=== PATIENT | male | born 1940 | race Caucasian/White ===

== ENCOUNTER 2017-02-15 10:10 | Observation (INO) | payer MEDICARE ==
[2017-02-15] MEDS ORDERED: Albuterol/Ipratropium NEB.SOL* Albuterol 2.5 MG/Ipratropium 0.5 MG 3 ML INH ONE (12:19)
[2017-02-15] MEDS ORDERED: NS 0.9% 1000 ML* 1,000 ML IV ONE (12:19)
[2017-02-15] MEDS ORDERED: methylPREDNISolone 125 MG* 2 ML VIAL IV ONE (12:19)
--- NOTE | 2017-02-15 13:11 | RAD ---
HISTORY: Shortness of breath COMPARISONS: December 28, 2015 VIEWS: 1: frontal portable view of the chest at 12:45 PM FINDINGS: LINES AND TUBES: None. CARDIOMEDIASTINAL SILHOUETTE: The cardiac silhouette is enlarged. The cardiomediastinal silhouette is otherwise normal for portable technique. PLEURA: There are small bilateral pleural effusions LUNG PARENCHYMA: There is hyperinflation. There is patchy alveolar opacification of the lung bases bilaterally. The left lower lung mass is not well-visualized on the current examination. ABDOMEN: The upper abdomen is clear. There is no subphrenic gas. BONES AND SOFT TISSUES: No bone or soft tissue abnormalities are noted. IMPRESSION: 1. COPD. 2. CARDIOMEGALY. 3. BIBASILAR ATELECTASIS VERSUS CONSOLIDATION. 4. SMALL BILATERAL PLEURAL EFFUSIONS. 5. RECOMMEND FOLLOW-UP UNTIL RESOLUTION TO EXCLUDE UNDERLYING PULMONARY PARENCHYMAL PATHOLOGY.
[2017-02-15 13:12] LABS: Hematocrit 37 % (42-52); Hemoglobin 12.1 g/dl (14.0-18.0); Mean Corpuscular HGB Conc 33 g/dl (31-36); Mean Corpuscular Hemoglobin 29 pg (27-31); Mean Corpuscular Volume 90 fL (80-94); Mean Platelet Volume 8 um3 (7.4-10.4); Red Blood Count 4.12 10^6/ul (4.0-5.4); Red Cell Distribution Width 14 % (10.5-15); White Blood Count 11.5 10^3/ul (3.5-10.8)
[2017-02-15 13:30] LABS: Albumin 3.2 g/dL (3.2-5.2); BUN/Creatinine Ratio 38.9 (8-20); Calcium 8.8 mg/dL (8.6-10.3); EGFR African American 137.2 (>60); EGFR Non-African American 106.7 (>60); Globulin 3.4 g/dL (2-4); Potassium 4.1 mmol/L (3.5-5.0); Total Bilirubin 0.8 mg/dL (0.2-1.0); Total Protein 6.6 g/dL (6.4-8.9); Troponin I 0.01 ng/mL (<0.04)
[2017-02-15] MEDS ORDERED: Albuterol HFA INHALER* 8 gm MDI INH PRN (14:40)
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
[2017-02-15] MEDS ORDERED: Albuterol/Ipratropium NEB.SOL* Albuterol 2.5 MG/Ipratropium 0.5 MG 3 ML INH PRN (15:08)
[2017-02-15] MEDS: Diltiazem TAB* 60 MG PO SCH ×2 (15:49→19:12)
--- NOTE | 2017-02-15 16:50 | HP ---
CC: Dr. Washington * [facility] MEDICINE HISTORY AND PHYSICAL: DATE OF ADMISSION: 02/15/17 PRIMARY CARE PHYSICIAN: Dr. Washington. ATTENDING PHYSICIAN: Dr. Usha Tobin * (dictation provided by Otilia Barillas NP ). CHIEF COMPLAINT: Dyspnea on exertion. HISTORY OF PRESENT ILLNESS: Mr. Pennington is a 76-year-old male with the past medical history of advanced COPD, on 2 L nasal cannula at home, as well as chronic systolic congestive heart failure, severe pulmonary hypertension, history of loculated pleural effusions, depression, as well as AFib, who presents to the hospital today with concern for dyspnea on exertion. The patient and his report that over the past few days he has had trouble catching his breath. They note that he is normally able to walk out to the barn at their home but lately this has been much more difficult for him due to dyspnea. He had an appointment to see Dr. Ramirez in a couple of weeks, but based on his symptoms, the called today with plans to see Dr. Ramirez tomorrow; however, when they reviewed the symptoms that the patient was having, Dr. Ramirez recommended that he come to the emergency room instead for evaluation. The patient denies any fevers. He denies any chills. He reports that he has had no new cough. He has been eating and drinking normally. His bowel movements are regular. He had report of hematuria with UTI, which was treated at Dr. Washington's office in early January, but those symptoms have resolved. He last followed up with Dr. Wyman's office in October of this year for echocardiogram. An echocardiogram at that time showed an improvement of his EF to 50% to 55%, but did show severe pulmonary hypertension and it was suspected at that time that perhaps symptoms that he was having were related that. In the emergency room, Mr. Pennington had a chest x-ray which showed concern for COPD, cardiomegaly, and persistent pleural effusions. It was not clear if there was any real change from that from previous chest xray. The patient was given 1 dose of Solu- Medrol out of concern for possible COPD exacerbation. His heart rate has been quite elevated, running up to 150s with minimal bed mobility. His O2 saturation was greater than 90% on 2 L nasal cannula. PAST MEDICAL HISTORY: 1. Atrial fibrillation, on chronic warfarin therapy. 2. COPD, on 2 L nasal cannula. 3. Hypertension. 4. Hyperlipidemia. 5. History of DVT with IVC placement and removal. 6. History of major crush injury, at which time, he had a tracheostomy and right knee surgery. 7. Chronic nonhealing abdominal wound. 8. Combined systolic and diastolic congestive heart failure, last known EF 50% to 55% with severely dilated left and right atrium and severe pulmonary hypertension. 9. Cardiomyopathy. 10. History of loculated pleural effusion. 11. Depression. MEDICATIONS: 1. Albuterol p.r.n. 2. Symbicort 80/4.5 two puffs inhaled b.i.d. 3. Diltiazem CD 180 mg p.o. daily. 4. Lovastatin 20 mg p.o. at bedtime. 5. Multivitamin mineral 1 tab p.o. daily. 6. Albuterol inhaler 2 puffs inhaled q.4 hours p.r.n. 7. Aspirin 81 mg p.o. daily. 8. Cholecalciferol 1000 units p.o. daily. 9. Metoprolol tartrate 100 mg p.o. b.i.d. 10. Sertraline 100 mg p.o. at bedtime. 11. Spiriva 1 cap inhaled daily. 12. Warfarin 2.5 mg on Sunday and ; 5 mg every other day, Sunday, Sunday, Sunday, Sunday, and Sunday. ALLERGIES: No known drug allergies. FAMILY HISTORY: Noncontributory. SOCIAL HISTORY: No report of alcohol or drug use. The patient is a long-term smoker, but has quit. He has over [id number] history of smoking. REVIEW OF SYSTEMS: A 14-point review of systems was completed with Mr. Pennington and all those not mentioned above were negative. PHYSICAL EXAMINATION GENERAL: Mr. Pennington is sitting in the bed. He is in no acute distress. VITAL SIGNS: Temperature 96.6, heart rate up to 140 when sitting in bed, respiratory rate 19, O2 saturation 93% on 2 L nasal cannula, and blood pressure 111/72. LUNGS: Diminished with poor aeration throughout. There is no accessory muscle use. HEART: S1 and S2 and irregular. No murmur, rub, or gallop. ABDOMEN: Soft and nontender. EXTREMITIES: No cyanosis or edema. NEURO: He is alert, he is oriented x3. He moves all extremities equally. There is no facial asymmetry or focal weakness. Extraocular movements are intact. SKIN: The patient has a chronic nonhealing wound to his abdomen with apparent mesh protruding through with extensive scabbing. No erythema. No current drainage. Family states this is baseline. DIAGNOSTIC STUDIES/LAB DATA: WBC 11.5, hemoglobin 12.1, hematocrit 37, platelet count 271. INR 2.92. Sodium 143, potassium 4.1, chloride 105, serum bicarbonate 35, BUN 28, creatinine 0.72, glucose 105, lactic acid 0.8. BNP 374. Chest x-ray showed COPD, cardiomegaly, bibasilar atelectasis versus consolidations, small bilateral pleural effusions. EKG shows AFib with heart rate 80s. ASSESSMENT AND PLAN: Mr. Pennington is a 76-year-old male with a past medical history of chronic obstructive pulmonary disease, on 2 L nasal cannula, as well as cardiomyopathy with last known ejection fraction of 50% with severe atrial enlargement and severe pulmonary hypertension and atrial fibrillation, who presents today to hospital with concern for dyspnea on exertion. In the emergency room, he has been found to be in rapid atrial fibrillation with a heart rate running up into 140s at rest. Our plans are for observation in the hospital for the followin. Rapid atrial fibrillation: I suspect the patient's dyspnea on exertion is more related to his uncontrolled heart rate than to any clear chronic obstructive pulmonary disease exacerbation. In terms of his chronic obstructive pulmonary disease, the patient is satting well on 2 L nasal cannula while at rest. He has no reported cough. He has no wheezing. At this time, plan to treat the atrial fibrillation for improved rate control in hopes that this will improve his symptoms. Plan to increase his diltiazem, he is currently on 180 mg, planning to give 60 mg q.6 hours and monitor closely. The patient's reports that in the past, it has been very difficult to provide rate control for the patient during previous hospitalizations. The patient started on Coumadin with the therapeutic INR. He will continue on metoprolol with hold parameters. 2. Chronic obstructive pulmonary disease. The patient was given 1 time dose of Solu-Medrol in the emergency room. I do not plan to continue this as I am not convinced that he has chronic obstructive pulmonary disease exacerbation at this point. Plan to switch over to Dulera as his Symbicort is not on formulary. He will have DuoNeb available p.r.n. Continue on his home oxygen. 3. History of hypertension. Continue metoprolol 100 b.i.d. with increased Cardizem. Blood pressure is well controlled at this point. 4. Depression. Continue sertraline. 5. DVT prophylaxis with warfarin. 6. Code status is full code. This was reviewed with the patient and his at the bedside today. 7. Disposition to telemetry floor for observation. TIME SPENT: Approximately 60 minutes was spent in the admission of this patient , more than half time spent with the patient at the bedside reviewing the events leading up to this hospitalization, performing the physical examination, and reviewing my plan of care. OTILIA BARILLAS NP [id number]/CPS #: [id number] MIN
[2017-02-15] MEDS ORDERED: Warfarin TAB(*) 2.5 MG PO SCH (17:00)
[2017-02-15] MEDS: Mometasone/Formoter 100/5 MDI INH SCH (20:23)
[2017-02-15] MEDS ORDERED: Metoprolol Tartrate TAB* 50 mg PO SCH ×2 (21:00)
[2017-02-15] MEDS ORDERED: Sertraline* 100 MG TAB PO SCH (21:00)
[2017-02-15] MEDS: Metoprolol Tartrate TAB* 100 MG TAB PO SCH (21:12)
[2017-02-16] MEDS: Diltiazem TAB* 60 MG PO SCH ×2 (00:18→05:52)
[2017-02-16] MEDS: Mometasone/Formoter 100/5 MDI INH SCH (07:46)
[2017-02-16] MEDS: Metoprolol Tartrate TAB* 100 MG TAB PO SCH (08:04)
[2017-02-16] MEDS ORDERED: Tiotropium CAP.INH* CAP.INH/18 MCG (USE ORDER SET !) INH SCH (09:00)
[2017-02-16] MEDS ORDERED: Cholecalciferol TAB* 1000 UNITS PO SCH (09:00)
[2017-02-16] MEDS ORDERED: Aspirin Low Dose CHEW TAB* 81 MG PO SCH (09:00)
[2017-02-16] MEDS ORDERED: Spiriva Inhaler DEVICE* 1 EACH DEVICE INH ONE (09:00)
[2017-02-16 12:12] VITALS: BP 107/71
[2017-02-16] MEDS ORDERED: Warfarin TAB(*) 5 MG PO SCH (17:00)
--- NOTE | 2017-02-17 08:26 | DS ---
AMENDED REPORT NOW INCLUDES COSIGNER DESIGNATION - ESIGNED BEFORE ADJUSTMENT DISCHARGE SUMMARY: DATE OF ADMISSION: 02/15/17 DATE OF DISCHARGE: 02/16/17 PRIMARY CARE PHYSICIAN: Dr. Joseph Washington. MY ATTENDING WHILE IN THE HOSPITAL: Dr. Eulogio Hughes * (DICTATED BY KRISTIN FERNANDEZ) PRINCIPAL DISCHARGE DIAGNOSIS: Atrial fibrillation with rapid ventricular rate. SECONDARY DIAGNOSES: 1. Chronic obstructive pulmonary disease. 2. Systolic and diastolic heart failure. 3. Hyperlipidemia. 4. Deep venous thrombosis with IVC filter placement and removal. 5. Major crush injury. DISCHARGE MEDICATIONS: 1. Aspirin 81 mg p.o. daily. 2. Albuterol 2 puffs q.4h. as needed. 3. Metoprolol tartrate 100 mg p.o. b.i.d. 4. Multivitamin. 5. Tiotropium 1 capsule inhalation daily. 6. Albuterol 1.25 mg inhalation q.4h. as needed. 7. Symbicort 84.5 two puffs inhalation b.i.d. 8. Vitamin D 1000 units p.o. daily. 9. Lovastatin 20 mg p.o. at bedtime. 10. Diltiazem 240 mg p.o. daily. 11. Zoloft 100 mg p.o. at bedtime. 12. Warfarin 5 mg p.o. Sunday, Sunday, Sunday, Sunday, and Sunday.; Warfarin 2.5 mg on Sunday and . STUDIES DONE WHILE IN THE HOSPITAL: Chest x-ray read as COPD, cardiomegaly, bibasilar atelectasis versus consolidations, small bilateral pleural effusions. Recommend followup until resolution to confirm underlying pulmonary parenchymal pathology, which was consistent with previous studies. EKG shows early repolarization in V3. No other ST segment changes. Normal axis. Irregularly irregular rhythm. No other abnormalities. HOSPITAL COURSE: This is a brief summary of the patient's hospital course. For more details, please see the history and physical by Otilia Barillas from . In brief, Mr. Pennington is a 76-year-old male with past medical history of COPD, chronic systolic and diastolic heart failure, hypertension, depression, AFib, who presents for an increase in dyspnea on exertion over the past few days with a decrease in exercise tolerance with no other symptoms of CHF. The patient was found to be very tachycardic in the emergency department and with his heart rate going up to 150s with minimal in bed mobility. This was believed to be the cause of his symptoms and he was admitted for rate control. The patient was started on Cardizem 60 mg q.4h. and was continued on his metoprolol 100 mg b.i.d. The patient improved dramatically overnight, being able to walk around in the unit with no symptoms. The patient's heart rate stayed down consistently in the 70s to 90s range without any symptoms of lightheadedness or fatigue. The patient did not have any other complaints overnight. The patient was amenable being sent home with an increase in his Cardizem dose to the dose he used in the hospital without any other treatment for COPD exacerbation or CHF exacerbation as these were not believed to be the underlying cause of his symptoms. PHYSICAL EXAMINATION ON DISCHARGE: General: The patient is a 76-year-old male , who appears stated age, sitting comfortably in bed, in no acute distress. Vital Signs: At discharge, temperature 98.2, pulse rate 74, respiratory rate 18 , oxygen saturation 98% on 2 L, which is his home dose, blood pressure 107/71. HEENT: Head: Normocephalic, atraumatic. Eyes: Sclerae are anicteric. No conjunctival injection. Pharynx: Nonerythematous. Mucous membranes moist. Neck: No lymphadenopathy. Supple, nontender. No carotid bruits auscultated. Heart: Regular rate and rhythm. No clicks, murmurs, gallops or rubs. Pulses 2 + in the bilateral radial, dorsalis pedis, and posterior tibialis areas. Respiratory: Clear to auscultation bilaterally. No wheezes, rales, rhonchi. Abdomen: Bowel sounds present in all 4 quadrants. Normoactive, nontender, nondistended. No abdominal bruits auscultated. Skin: Clean, dry, and intact. Anton Ruiz. Neuro: Cranial nerves II through XII grossly intact. Alert and oriented x3. Normal gait. DISCHARGE PLAN: The patient will be discharged to home where he lives with his on the increased Cardizem dose as this appears to have fully abated his symptoms. The patient will continue his home medication for COPD as well as his home oxygen. The patient will resume activity as tolerated with a heart- healthy diet. No caffeine. The patient should follow up with his primary care doctor within a week. The patient should return to the hospital for any increase in his symptoms. This is a summary of the hospital course, for more detail see the complete medical record. TIME SPENT: Approximately 60 minutes was spent on this discharge, 30 minutes of which was spent [id number] with the patient obtaining history and physical and discussing the discharge plan. KRISTIN FERNANDEZ [id number]/CPS #: [id number] MIN
== END 2017-02-16 12:07 | disposition home or self-care (01) ==
LOC: ED 10:10 → MEDTELE 14:41
PROVIDERS: ADMIT Internal Medicine; ATTEND Hospitalist
DX: I48.91 Unspecified atrial fibrillation (principal); Z79.01 Long term (current) use of anticoagulants; I11.0 Hypertensive heart disease with heart failure; I50.40 Unspecified combined systolic (congestive) and diastolic (congestive) heart failure; J44.9 Chronic obstructive pulmonary disease, unspecified; E78.5 Hyperlipidemia, unspecified; F32.9 Major depressive disorder, single episode, unspecified; Z86.718 Personal history of other venous thrombosis and embolism; Z79.899 Other long term (current) drug therapy; Z87.891 Personal history of nicotine dependence
CPT/HCPCS: 36415; 71010; 80053; 83605; 83880; 84484; 85025; 85610; 87040; 93005; 94640; 94760; 96361; 96374; 99284; A9270-GY; G0378; J2930

== ENCOUNTER → 2017-04-10 11:09 | Emergency (ER) | payer MEDICARE ==
[~2017-04-10 11:09] MED LIST: Iohexol 300* (CONTRAST) 10 ML SDV IV ONE; Lidocaine 2% PF * 5 ML VIAL ONE; Morphine INJ* 2 MG/ML 1 ML CARPUJECT IV ONE; Morphine INJ* 2 MG/ML 1 ML SYRINGE (TWO MG - NEW SYRINGE VERSION) ONE; Morphine INJ* 4 MG/ML 1 ML CARPUJECT IV ONE; NS 0.9% 1000 ML* 1,000 ML IV ONE; Ondansetron INJ* 2 MG/ML VIAL IV ONE; Tetan/Diph/Pertus SYR(Tdap)* 0.5 ML SYR(BOOSTRIX) use SYR IM ONE; ceFAZolin 1 GM VIAL(*) ONE; ceFAZolin 1 GM in Dextrose (*) 1 GM/50 ML BAG IVPB ONE
[2017-04-10 12:21] LABS: Hematocrit 38 % (42-52); Hemoglobin 12.3 g/dl (14.0-18.0); Mean Corpuscular HGB Conc 32 g/dl (31-36); Mean Corpuscular Hemoglobin 28 pg (27-31); Mean Corpuscular Volume 88 fL (80-94); Mean Platelet Volume 8 um3 (7.4-10.4); Red Blood Count 4.35 10^6/ul (4.0-5.4); Red Cell Distribution Width 15 % (10.5-15); White Blood Count 13.7 10^3/ul (3.5-10.8)
[2017-04-10 12:33] LABS: Albumin 3.4 g/dL (3.2-5.2); BUN/Creatinine Ratio 30.5 (8-20); EGFR African American 88.8 (>60); Globulin 2.6 g/dL (2-4); Potassium 4.6 mmol/L (3.5-5.0); Total Bilirubin 0.6 mg/dL (0.2-1.0)
--- NOTE | 2017-04-10 12:41 | RAD ---
Indication: Fall, right hand pain. 4 views of the right hand are reviewed. Degenerative changes at the scaphotrapezium joint is noted. Additionally there are degenerative changes at the third metacarpal phalangeal joint. Degenerative changes of the proximal and distal interphalangeal joints are noted to the second through fifth digit. No definite fracture is identified however. IMPRESSION: Degenerative changes of the third metacarpal phalangeal joint as well as in the wrist joint. No definite fracture is noted.
--- NOTE | 2017-04-10 12:42 | RAD ---
Indication: Right wrist injury 3 views of the wrist demonstrates no fracture. Degenerative changes between the trapezium and the scaphoid is noted. Cyst formation is noted in the scaphoid as well as in the lunate and triquetrum. No definite fracture is identified. IMPRESSION: NO FRACTURE OF THE WRIST IS NOTED. Degenerative changes of the wrist are noted.
--- NOTE | 2017-04-10 14:09 | RAD ---
Indication: Fall, head injury. CT of the brain was performed without IV contrast. Ventricular structures are midline. No midline shift is noted. There is central and cortical atrophy noted. Periventricular lucency consistent with chronic ischemic White matter change is noted. There is evidence of encephalomalacia in the left posterior temporal lobe. IMPRESSION: Chronic ischemic change. 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
--- NOTE | 2017-04-10 14:26 | RAD ---
INDICATION: Kicked by a horse. Possible facial injury. Patient's chief complaint-hand and chest pain COMPARISON: None TECHNIQUE: Axial source images were acquired from the vertex of the mandible through the orbits. Coronal and sagittal reconstructed images were acquired. FINDINGS: Bones: There is no acute facial bone fracture. Orbits: The globes and intraconal structures appear intact. The optic nerves are symmetric. Extraocular muscles appear normal. There is no intraconal inflammatory change or retrobulbar mass.. Paranasal sinuses: The paranasal sinuses are clear. Brain: There are no acute abnormalities of the visualized brain parenchyma. Soft tissues: Normal Other: None The visualized soft tissue elements about the neck appear normal. IMPRESSION: NO ACUTE FACIAL BONE FRACTURE.
--- NOTE | 2017-04-10 14:32 | RAD ---
INDICATION: Kicked by horse. Fall. Anticoagulated. COMPARISON: January 02, 2016 CT TECHNIQUE: Multidetector CT images foramen magnum to lung apices without contrast. Multiplanar reformation. REPORT: Emphysematous change at the visualized lung apices. Bilateral apical pleural-parenchymal scarring. No pneumothorax evident within the [id number]. Negative for paravertebral hematoma. Negative for facet subluxation at any level. Ankylosis at the C3-C4 disc space and facet joints. Negative for vertebral body or posterior element fracture. Diffuse degenerative spondylosis and facet joint osteoarthritis. Congenitally generous pedicles mitigate against acquired central canal stenosis. At C4-C5 uncinate process spurring and facet joint osteoarthritis results in slight LEFT osseous foraminal stenosis. IMPRESSION: 1. No CT evidence for traumatic cervical spine injury. 2. No significant change in multilevel degenerative spondylosis and facet joint osteoarthritis compared with the 2016 exam.
--- NOTE | 2017-04-10 15:37 | RAD ---
INDICATION: Kicked by a horse. Chest and hand pain. Possible abdominal or pelvic injury. COMPARISON: CTA chest January 02, 2016; CT abdomen pelvis May 20, 2015 TECHNIQUE: Axial source images were obtained from the thoracic inlet to the symphysis pubis following administration of oral and intravenous contrast. 81 mL Omnipaque 300 was utilized. Coronal and sagittal reconstructed images were acquired. CHEST FINDINGS: Neck/thyroid: The visualized neck to include the thyroid appear normal. Chest wall: There are no acute abnormalities of the bony thorax or chest wall. There is posttraumatic deformity of the anterior right first rib and the right clavicle consistent with the history of prior injury. There are rib deformities consistent with prior traumatic injury to the left second through seventh ribs. There is spondylitic change of the thoracic spine with kyphoscoliosis There is no supraclavicular, infraclavicular, or axillary lymphadenopathy. Lungs : There are no pulmonary parenchymal masses or acute infiltrates. There are emphysematous changes with a severe scarring and/or atelectasis. There are no endobronchial lesions. Cardiomediastinal structures: The heart is normal in size. There is no pericardial effusion. There is no evidence of aortic aneurysm or dissection. The pulmonary vessels appear normal. There is no current mediastinal or hilar adenopathy. The esophagus appears normal. Pleura : Loculated pleural fluid collections have essentially resolved. ABDOMINAL/PELVIC FINDINGS: Liver: The liver is normal in size. There are no new masses. There is a 1.2 cm cyst or hemangioma in the left hepatic lobe There is no ductal dilatation. Gallbladder: There are no calcified gallstones. There is no evidence of wall thickening or pericholecystic fluid. Spleen: The spleen is normal in size. There are no masses. Pancreas: There is no evidence of pancreatic mass or ductal dilatation. Adrenal glands: There is no evidence of adrenal mass. Kidneys: The kidneys are normal in size and position. There are prompt nephrograms and there is prompt excretion bilaterally. There are are multiple small renal cortical cysts. Several cysts are too small to fully characterize there is no evidence of nephrolithiasis. Adenopathy: There is no evidence of adenopathy by size criteria. Fluid collections: There are no free or localized fluid collections. Vessels:There are atherosclerotic changes of the aorta. There is mild fusiform ectasia of the infrarenal abdominal aorta extending down to the bifurcation. The infrarenal abdominal aorta measures 2.8 x 2.7 cm in transverse dimensions. GI tract: GI tract is limited as no oral contrast was given. There are no specific acute CT abnormalities. There are scattered diverticula of the sigmoid colon. Pelvic organs: The prostate is mildly enlarged. There are prostatic calcifications Bladder: There is a 1.5 cm bladder calculus. Abdominal and pelvic soft tissues: There is a right inguinal hernia containing bowel. The hernia contains the appendix. There are no findings of strangulation. Small fat-containing left inguinal hernia. Osseous structures: There are no acute osseous abnormalities of the lumbar spine or bony pelvis there is a scoliotic deformity. There is degenerative disc disease most severe at T12-L1 and L5-S1. IMPRESSION: 1. Evidence of prior posttraumatic injury to the bony thorax. No acute findings. 2. Emphysematous change with mild basilar scarring. Loculated pleural fluid collections have resolved. 3. Atherosclerotic change of the abdominal aorta with mild fusiform dilatation of the infrarenal abdominal aorta, unchanged. 4. Scattered diverticula of the sigmoid colon. 5. Mild prostate enlargement. 6. Bladder calculus 7. Bilateral inguinal hernias. The right inguinal hernia contains bowel.
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
[2017-04-10 22:30] VITALS: BP 115/59
== END | disposition home or self-care (01) ==
LOC: ED 11:09
DX: S61.411A Laceration without foreign body of right hand, initial encounter (principal); R07.9 Chest pain, unspecified; W55.12XA Struck by horse, initial encounter; Y93.9 Activity, unspecified; Y92.9 Unspecified place or not applicable; Z87.891 Personal history of nicotine dependence
CPT/HCPCS: 12002; 36415; 70450; 70486; 71260; 72125; 74177; 80053; 83605; 85025; 85610; 85730; 90715; 96374; 96375; 99285; J0690; J2270; J2405; Q9967

== ENCOUNTER 2017-06-21 12:44 | Inpatient (IN) | payer MEDICARE ==
[2017-06-21] MEDS ORDERED: Lactated Ringers 1000 ml Bag*IV.FLUID IV ONE (13:14)
[2017-06-21] MEDS ORDERED: Piperacillin/Tazobac ADVAN(*) 3.375 GM in NS 0.9% 100 ML* 100 ML IVPB ONE (13:27)
[2017-06-21] MEDS ORDERED: NS 0.9% 1000 ML*IV.FLUID IV ONE (13:31)
[2017-06-21 13:59] LABS: ABS Basophils 0.2 10^3/ul (0-0.2); ABS Eosinophils 0 10^3/ul (0-0.6); ABS Lymphocytes 0.3 10^3/ul (1.0-4.8); ABS Monocytes 0.8 10^3/ul (0-0.8); ABS Neutrophils 14.5 10^3/ul (1.5-7.7); ABS Nucleated RBC 0 10^3/ul; Eosinophil % 0.1 % (0-6); Hematocrit 39 % (42-52); Hemoglobin 12.8 g/dl (14.0-18.0); Mean Corpuscular HGB Conc 33 g/dl (31-36); Mean Corpuscular Hemoglobin 29 pg (27-31); Mean Corpuscular Volume 88 fL (80-94); Mean Platelet Volume 9 um3 (7.4-10.4); Nucleated Red Blood Cells % 0.1; Platelet Count 252 10^3/ul (150-450); Red Blood Count 4.43 10^6/ul (4.0-5.4); Red Cell Distribution Width 15 % (10.5-15); White Blood Count 15.8 10^3/ul (3.5-10.8)
[2017-06-21 14:13] LABS: EGFR Non-African American 60.3 (>60)
[2017-06-21] MEDS ORDERED: Iohexol 300* (CONTRAST) 10 ML SDV IV ONE (14:36)
--- NOTE | 2017-06-21 14:38 | RAD ---
HISTORY: Abdominal infection, wound infection COMPARISONS: February 15, 2017, CT dated April 10, 2017 VIEWS: 1: frontal portable view of the chest at 2:20 PM FINDINGS: LINES AND TUBES: None. CARDIOMEDIASTINAL SILHOUETTE: The cardiomediastinal silhouette is normal for portable technique. PLEURA: There is blunting of the right costophrenic angle. LUNG PARENCHYMA: There is hyperinflation. There is confluent alveolar opacification of the right lower lung field that has developed compared to the previous CT dated April 10, 2017. ABDOMEN: The upper abdomen is clear. There is no subphrenic gas. BONES AND SOFT TISSUES: No bone or soft tissue abnormalities are noted. IMPRESSION: 1. COPD. 2. SMALL RIGHT PLEURAL EFFUSION. 3. THERE IS RIGHT LOWER LUNG CONSOLIDATION. RECOMMEND FOLLOW-UP UNTIL RESOLUTION TO EXCLUDE UNDERLYING PULMONARY PARENCHYMAL PATHOLOGY..
[2017-06-21 14:47] LABS: INR 3.19 (0.77-1.02)
--- NOTE | 2017-06-21 15:16 | RAD ---
INDICATION: Abdominal pain COMPARISON: CT chest/abdomen/pelvis April 02, 2017 TECHNIQUE: Axial source images were obtained from the hemidiaphragms to the symphysis pubis following administration of oral and intravenous contrast. 87 mL Omnipaque 300 was utilized. Coronal and sagittal reconstructed images were acquired. Lung bases: There is bibasilar scarring with emphysematous changes and loculated pleural fluid in the right lung base. Suggest follow-up chest radiographs. The heart is enlarged. Liver: The liver is normal in size. There are no new masses. There is a small left hepatic lobe cyst, unchanged There is no ductal dilatation. Gallbladder: There are no calcified gallstones. There is no evidence of wall thickening or pericholecystic fluid. Spleen: The spleen is normal in size. There are no masses. Pancreas: There is no focal pancreatic mass or ductal dilatation. Adrenal glands: There is no evidence of adrenal mass. Kidneys: The kidneys are normal in size and position. There are prompt nephrograms and there is prompt excretion bilaterally. There are multiple small cysts in each kidney, unchanged. There is no evidence of nephrolithiasis. Adenopathy: There is no evidence of adenopathy by size criteria. Fluid collections: There are no free or localized fluid collections. Vessels:There are mild atherosclerotic changes involving the aorta. There is fusiform aneurysmal dilatation of the infrarenal abdominal aorta measuring 2.8 x 2.5 cm. The iliac vessels demonstrate extensive intimal calcifications. The IVC appears normal. GI tract: There are no acute CT bowel findings. There is no obstruction. The stomach and small bowel appear normal. The lower GI tract is remarkable for scattered diverticula of the sigmoid and descending colon. There are no CT findings of acute diverticulitis. There is a small right apical hernia which contains the appendix, unchanged. Pelvic organs: The prostate is mildly enlarged. Bladder: There is a bladder calculus. Abdominal and pelvic soft tissues: Small bilateral inguinal hernias right greater than left. Osseous structures: There are no acute osseous findings. Other: None IMPRESSION: 1. There is now loculated pleural fluid in the right lung base. Suggest a follow-up chest x-ray. 2. Mild fusiform dilatation of the infrarenal abdominal aorta, unchanged. 3. Scattered diverticula of the sigmoid and descending colon. No CT evidence of acute diverticulitis. 4. Prostatic enlargement. 5. Bladder calculus. 6. Small bilateral inguinal hernias right greater than left, unchanged
[2017-06-21] MEDS ORDERED: Vancomycin(*) 1,000 MG in NS 0.9% 250 ML* 250 ML IVPB ONE (16:41)
[2017-06-21] MEDS ORDERED: Al Hydrox/Mg Hydrox/Simet LIQ* 30 ML UDC PO PRN (19:08)
[2017-06-21] MEDS ORDERED: Albuterol 2.5 MG/3 ML NEB.SOL* (0.083%) INH PRN (19:08)
[2017-06-21] MEDS ORDERED: Albuterol/Ipratropium NEB.SOL* Albuterol 2.5 MG/Ipratropium 0.5 MG 3 ML INH PRN (19:08)
[2017-06-21] MEDS ORDERED: Acetaminophen TAB* 325 MG PO PRN (19:08)
[2017-06-21] MEDS ORDERED: Ondansetron INJ* 2 MG/ML VIAL IV PRN (19:08)
[2017-06-21] MEDS ORDERED: Ipratropium 0.5MG/2.5ML NEB* 0.5 MG/2.5 ML NEB.SOLN INH PRN (19:15)
[2017-06-21] MEDS ORDERED: Vancomycin(*) 0 MG in NS 0.9% 250 ML* 250 ML IVPB SCH (20:00)
[2017-06-21] MEDS ORDERED: Warfarin TAB(*) 2.5 MG PO ONE (20:00)
[2017-06-21] MEDS ORDERED: Vancomycin per Pharmacy* NOTE FOLLOW UP PRN (20:46)
[2017-06-21] MEDS ORDERED: Piperacillin/Tazobac ADVAN(*) 3.375 GM in NS 0.9% 100 ML* 100 ML IVPB SCH (21:00)
[2017-06-21] MEDS ORDERED: Piperacillin/Tazobactam 13.5 GM IV 24 hour continuous infusion IVPB SCH ×2 (21:00)
[2017-06-21] MEDS: Mometasone/Formoter 200/5 MDI INH SCH ×2 (21:25→23:33)
[2017-06-21] MEDS: Atorvastatin* 10 MG TAB PO SCH (22:57)
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
[2017-06-21] MEDS: methylPREDNISolone SOD 40 MG* 1 ML VIAL IV SCH (23:55)
[2017-06-22] MEDS: Vancomycin(*) 1,000 MG in NS 0.9% 250 ML* 250 ML IVPB SCH ×3 (02:00→18:01)
[2017-06-22 04:25] LABS: Urine Appearance Clear; Urine Blood 2+ (Negative); Urine Color Yellow; Urine Ketones Negative (Negative); Urine Protein 1+(30 mg/dL) (Negative); Urine Urobilinogen Negative (Negative)
[2017-06-22 05:12] LABS: ABS Basophils 0 10^3/ul (0-0.2); ABS Eosinophils 0 10^3/ul (0-0.6); ABS Lymphocytes 0.4 10^3/ul (1.0-4.8); ABS Monocytes 0.4 10^3/ul (0-0.8); ABS Neutrophils 8.9 10^3/ul (1.5-7.7); ABS Nucleated RBC 0 10^3/ul; Eosinophil % 0.4 % (0-6); Hematocrit 35 % (42-52); Hemoglobin 11.6 g/dl (14.0-18.0); Lymphocyte % 4.6 % (25-47); Mean Corpuscular HGB Conc 33 g/dl (31-36); Mean Corpuscular Hemoglobin 29 pg (27-31); Mean Corpuscular Volume 88 fL (80-94); Mean Platelet Volume 8 um3 (7.4-10.4); Nucleated Red Blood Cells % 0; Platelet Count 208 10^3/ul (150-450); Red Blood Count 4.03 10^6/ul (4.0-5.4); Red Cell Distribution Width 15 % (10.5-15); White Blood Count 9.8 10^3/ul (3.5-10.8)
[2017-06-22 05:18] LABS: INR 3.73 (0.77-1.02)
[2017-06-22 05:29] LABS: EGFR Non-African American 80.4 (>60)
--- NOTE | 2017-06-22 08:26 | CONS ---
CC: Dr. Ennis; Dr. Joseph Washington CONSULTATION REPORT: DATE OF CONSULT: 06/21/17 HISTORY OF PRESENT ILLNESS: Patient is a 76-year-old male I was asked to evaluate by Dr. Dukes for a n abdominal wound. He presented to the emergency room with abdominal pain and signs of early sepsis. He has a history of some kind of abdominal surgery done a few years ago elsewhere. He does not glenroy lly remember too many details of what they did with the surgery. He has had some mesh that has been extruding gradually over quite a length of time. He was seen back at the [facility] a while back a nd they told him with a big surgery he might need a colostomy bag. He refused, and never had any [place] to repair it. He generally eats okay. He does not have anything that sounds like bilious drain age or feculent drainage. He does have some foul smelling drainage in the area. PHYSICAL EXAM: On examination, he appears slender, maybe a little frail, but he is alert and animate d. Skin color is good. He does not appear really acutely ill. He is afebrile. Vital signs are note d. On examination of the abdomen, there is a large area of what appears like it was an open abdomina l wound that healed by secondary intention. It is approximately 15 cm in each dimension with very th in scar, very little abdominal wall is intact in this location. There is old mesh and suture materia l extruding along the lower edge and the upper edge of this wound. There is raw excoriated skin under the edge of the mesh, and some purulent drainage dripping out from underneath the edge of the mesh, so the mesh was thus debrided off back to where it extrudes from the skin. There is no evidence of a ny necrotic or gangrenous skin. There is no evidence of undrained collection, although there is some purulent seepage from some of the open areas. The wound was then dressed with sterile gauze. DIAGNOSTIC STUDIES/LAB DATA: Laboratory studies are noted. IMPRESSION: A 76-year-old male with what appears to be a failed abdominal wall mesh repair, now with what appears to be scarring right over the bowel with areas of extruding mesh and purulent drainage which is MRSA positive. I have debrided off the bulk of the excess mesh, although, of course, there is going to be some residual infection underneath. There is no evidence of abscess collection on the CT scan. Surgical intervention for a definitive debridement and closure would be a massive operation with like ly multiple enterotomies and a high risk of failure. He would probably be best served at a tertiary center for this type of surgery. He may need antibiotics to treat his early sepsis, and I will defer to the hospitalist service in savita t regard. I did not think he needs any kind of emergent surgery or debridement right now, and I think he could be managed with the wound clinic in the interim; and, as noted, may benefit from referral to a [facility] center for definitive surgical intervention. [id number]/[facility] #: [id number]
[2017-06-22] MEDS ORDERED: Diltiazem CD CAP* 120 MG PO SCH (09:00)
[2017-06-22] MEDS: Mometasone/Formoter 200/5 MDI INH SCH ×2 (09:01→20:39)
[2017-06-22] MEDS: Albuterol HFA INHALER* 8 gm MDI INH PRN ×3 (09:08→18:09)
[2017-06-22] MEDS: Cholecalciferol TAB* 1000 UNITS PO SCH (09:20)
[2017-06-22] MEDS: Aspirin EC Low Dose* 81 MG TAB.EC PO SCH (09:21)
[2017-06-22] MEDS: Metoprolol Tartrate TAB* 50 mg PO SCH ×2 (09:21→19:47)
[2017-06-22] MEDS: Diltiazem CD CAP* 120 MG PO SCH (09:21)
[2017-06-22] MEDS ORDERED: Metoprolol Tartrate IV* 1 MG/ML 5 ML VIAL IV PRN (10:33)
[2017-06-22] MEDS: methylPREDNISolone SOD 40 MG* 1 ML VIAL IV SCH (12:32)
--- NOTE | 2017-06-22 12:46 | PN ---
Progress Note - Progress Note Date of Service: 06/22/17 SOAP: Subjective: Patient seen and examined at bedside. Has no complaints, would like to go home. Denies abdominal pain, eating lunch. Objective: Awake and alert, in NAD Vitals reviewed, Tmax 99.1 Abdomen soft, NT, ND. Dressing removed revealing areas of macerated skin and dry old scabs. No bleeding or discharge. Dry dressing applied. Labs noted Assessment: s/p bedside debridement of infected abdominal mesh secondary to apparent failed VIH repair Plan: Continue Abx Conservative measures for now, patient is a poor surgical candidate Spoke with his over phone, she is aware of plans, heard similar answers at [place] in the past F/U with wound clinic
[2017-06-22] MEDS ORDERED: Vancomycin Trough Check NOTE FOLLOW UP ONE (16:30)
--- NOTE | 2017-06-22 17:52 | PN ---
Subjective Date of Service: 06/22/17 Interval History: feels okay, still short of breath at rest but says not far from his baseline. no abdominal pain Objective Active Medications: Acetaminophen (Tylenol Tab*) 650 mg PO Q4H PRN PRN Reason: FEVER/PAIN Al Hydrox/Mg Hydrox/Simethicone (Maalox Plus*) 30 ml PO Q6H PRN PRN Reason: INDIGESTION Albuterol (Ventolin 2.5 Mg/3 Ml Neb.Vicenta*) 2.5 mg INH [id number] AWAKE PRN PRN Reason: sob/wheezing Albuterol (Ventolin Hfa Inhaler*) 2 puff INH Q4H PRN PRN Reason: DYSPNEA Last Admin: 06/22/17 13:04 Dose: 2 puff Albuterol/Ipratropium (Duoneb (Albuterol 2.5 Mg/Ipratropium 0.5 Mg)) 1 neb INH [id number] AWAKE PRN PRN Reason: sob/wheexing Aspirin (Aspirin Ec Low Dose*) 81 mg PO DAILY [facility] Last Admin: 06/22/17 09:21 Dose: 81 mg Atorvastatin Calcium (Lipitor*) 5 mg PO BEDTIME [facility] Last Admin: 06/21/17 22:57 Dose: 5 mg Cholecalciferol (Vitamin D Tab*) 1,000 units PO DAILY [facility] Last Admin: 06/22/17 09:20 Dose: 1,000 units Diltiazem HCl (Cardizem Cd Cap*) 120 mg PO DAILY [facility] Last Admin: 06/22/17 09:21 Dose: 120 mg Piperacillin Sod/Tazobactam (Sod 13.5 gm/ Sodium Chloride) 500 mls @ 20.833 mls /hr IVPB Q24H [facility] Stop: 06/22/17 20:59 Last Admin: 06/21/17 22:57 Dose: 20.833 mls/hr Vancomycin HCl 1,000 mg/ (Sodium Chloride) 250 mls @ 166.667 mls/hr IVPB Q8H [facility] Last Admin: 06/22/17 09:21 Dose: 166.667 mls/hr Sodium Chloride (Ns 0.9% 1000 Ml*) 1,000 mls @ 100 mls/hr IV PER RATE [facility] Piperacillin Sod/Tazobactam (Sod 3.375 gm/ Sodium Chloride) 100 mls @ 25 mls/ hr IVPB Q8H [facility] Ipratropium [place] (Atrovent 0.5 Mg Neb.Vicenta*) 0.5 mg INH Q4H PRN PRN Reason: SOB/WHEEZING Methylprednisolone Sodium Succinate (Solu-Medrol 40 Mg) 40 mg IV Q12H [facility] Last Admin: 06/22/17 12:32 Dose: 40 mg Metoprolol Tartrate (Lopressor Tab*) 100 mg PO BID [facility] Last Admin: 06/22/17 09:21 Dose: 100 mg Metoprolol Tartrate (Lopressor Iv*) 5 mg IV Q6H PRN PRN Reason: HEART RATE/PULSE GREATER THAN: Mometasone Furoate/Formoterol Fumar (Dulera 200/5 Mdi*) 2 puff INH BID [facility] PRN Reason: Protocol Last Admin: 06/22/17 09:01 Dose: 2 puff Ondansetron HCl (Zofran Inj*) 4 mg IV Q4H PRN PRN Reason: NAUSEA/VOMITING Pharmacy Consult (Vancomycin Per Pharmacy*) 1 note FOLLOW UP . PRN PRN Reason: PER PROTOCOL Vital Signs - 8 hr 06/22/17 06/22/17 06/22/17 12:27 14:09 16:03 Temperature 98.8 F 97.9 F Pulse Rate 128 104 Respiratory 20 24 Rate Blood Pressure 121/75 135/77 (mmHg) O2 Sat by Pulse 89 94 90 Oximetry Oxygen Devices in Use Now: Nasal Cannula Appearance: dyspneic when talking Eyes: No Scleral Icterus Ears/Nose/Mouth/Throat: NL Teeth, Lips, Gums Neck: - - right clavicular deformity Respiratory: Symmetrical Chest Expansion and Respiratory Effort, - - poor air movement Cardiovascular: NL Sounds; No Murmurs; No JVD, RRR Abdominal: - - large patch of superficial wound without drainage, some erythema Lymphatic: No Cervical Adenopathy Extremities: No Edema Skin: No Rash or Ulcers Neurological: Alert and Oriented x 3 Result Diagrams: 06/22/17 05:05 06/22/17 05:05 Assess/Plan/Problems-Billing Assessment: - Patient Problems (1) CAP (community acquired pneumonia) Current Visit: Yes Status: Acute Code(s): J18.9 - PNEUMONIA, UNSPECIFIED ORGANISM SNOMED Code(s): 749563544 Comment: was started on broad spectrum abx for concern for abdominal wound; can de-escalate to include cap coverage with MRSA coverage (2) Chronic abdominal wound infection Current Visit: Yes Status: Acute Code(s): S31.109A - UNSP OPN WND ABD WALL, UNSP Q W/O PENET PERIT CAV, INIT; L08.9 - LOCAL INFECTION OF THE SKIN AND SUBCUTANEOUS TISSUE, UNSP SNOMED Code(s): 51058600 Comment: colonized with MRSA, doubt active infection or abscess (3) Atrial fibrillation Current Visit: No Status: Acute Priority: Medium Code(s): I48.91 - UNSPECIFIED ATRIAL FIBRILLATION SNOMED Code(s): 33215863 Comment: poorly controlled on home metoprolol likely due to copd exacerbation , albuterol continue metoprolol 100mg bid AC with warfarin, but on hold now due to supratherapeutic inr (4) COPD (chronic obstructive pulmonary disease) Current Visit: No Status: Acute Priority: Medium Code(s): J44.9 - CHRONIC OBSTRUCTIVE PULMONARY DISEASE, UNSPECIFIED SNOMED Code(s): 76736723 Comment: nebs and steroids for acute exacerbation
[2017-06-22] MEDS: Atorvastatin* 10 MG TAB PO SCH (19:48)
[2017-06-22] MEDS: NS 0.9% 1000 ML* 1,000 ML IV SCH (19:49)
[2017-06-23] MEDS: ZOSYN 3.375 GM Q8H per EXTENDED INFUSION IVPB SCH ×6 (00:29→16:54)
[2017-06-23] MEDS: Vancomycin(*) 1,000 MG in NS 0.9% 250 ML* 250 ML IVPB SCH ×3 (00:35→16:54)
[2017-06-23] MEDS: methylPREDNISolone SOD 40 MG* 1 ML VIAL IV SCH ×3 (01:59→23:44)
[2017-06-23] MEDS: Mometasone/Formoter 200/5 MDI INH SCH ×2 (07:02→20:54)
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
[2017-06-23] MEDS: Metoprolol Tartrate TAB* 50 mg PO SCH ×2 (09:13→20:27)
[2017-06-23] MEDS: Cholecalciferol TAB* 1000 UNITS PO SCH (09:13)
[2017-06-23] MEDS: Diltiazem CD CAP* 120 MG PO SCH (09:13)
[2017-06-23] MEDS: Aspirin EC Low Dose* 81 MG TAB.EC PO SCH (09:13)
[2017-06-23] MEDS: NS 0.9% 1000 ML* 1,000 ML IV SCH (11:59)
[2017-06-23] MEDS: Albuterol HFA INHALER* 8 gm MDI INH PRN (12:21)
--- NOTE | 2017-06-23 16:09 | PN ---
Subjective Date of Service: 06/23/17 Interval History: feels good, no complaints this morning. no pain in the abdomen. Went for a walk this morning with his nurse and felt short of breath when he returned. Family History: Unchanged from Admission Social History: Unchanged from Admission Past Medical History: Unchanged from Admission Objective Active Medications: Acetaminophen (Tylenol Tab*) 650 mg PO Q4H PRN PRN Reason: FEVER/PAIN Al Hydrox/Mg Hydrox/Simethicone (Maalox Plus*) 30 ml PO Q6H PRN PRN Reason: INDIGESTION Albuterol (Ventolin 2.5 Mg/3 Ml Neb.Vicenta*) 2.5 mg INH [id number] AWAKE PRN PRN Reason: sob/wheezing Albuterol (Ventolin Hfa Inhaler*) 2 puff INH Q4H PRN PRN Reason: DYSPNEA Last Admin: 06/23/17 12:21 Dose: 2 puff Albuterol/Ipratropium (Duoneb (Albuterol 2.5 Mg/Ipratropium 0.5 Mg)) 1 neb INH [id number] AWAKE PRN PRN Reason: sob/wheexing Aspirin (Aspirin Ec Low Dose*) 81 mg PO DAILY [facility] Last Admin: 06/23/17 09:13 Dose: 81 mg Atorvastatin Calcium (Lipitor*) 5 mg PO BEDTIME [facility] Last Admin: 06/22/17 19:48 Dose: 5 mg Cholecalciferol (Vitamin D Tab*) 1,000 units PO DAILY [facility] Last Admin: 06/23/17 09:13 Dose: 1,000 units Diltiazem HCl (Cardizem Cd Cap*) 120 mg PO DAILY [facility] Last Admin: 06/23/17 09:13 Dose: 120 mg Vancomycin HCl 1,000 mg/ (Sodium Chloride) 250 mls @ 166.667 mls/hr IVPB Q8H [facility] Last Admin: 06/23/17 09:13 Dose: 166.667 mls/hr Sodium Chloride (Ns 0.9% 1000 Ml*) 1,000 mls @ 100 mls/hr IV PER RATE [facility] Last Admin: 06/23/17 11:59 Dose: 100 mls/hr Piperacillin Sod/Tazobactam (Sod 3.375 gm/ Sodium Chloride) 100 mls @ 25 mls/ hr IVPB Q8H [facility] Last Admin: 06/23/17 09:13 Dose: 25 mls/hr Ipratropium [place] (Atrovent 0.5 Mg Neb.Vicenta*) 0.5 mg INH Q4H PRN PRN Reason: SOB/WHEEZING Methylprednisolone Sodium Succinate (Solu-Medrol 40 Mg) 40 mg IV Q12H [facility] Last Admin: 06/23/17 11:59 Dose: 40 mg Metoprolol Tartrate (Lopressor Tab*) 100 mg PO BID [facility] Last Admin: 06/23/17 09:13 Dose: 100 mg Metoprolol Tartrate (Lopressor Iv*) 5 mg IV Q6H PRN PRN Reason: HEART RATE/PULSE GREATER THAN: Mometasone Furoate/Formoterol Fumar (Dulera 200/5 Mdi*) 2 puff INH BID [facility] PRN Reason: Protocol Last Admin: 06/23/17 07:02 Dose: 2 puff Ondansetron HCl (Zofran Inj*) 4 mg IV Q4H PRN PRN Reason: NAUSEA/VOMITING Pharmacy Consult (Vancomycin Per Pharmacy*) 1 note FOLLOW UP . PRN PRN Reason: PER PROTOCOL Sertraline HCl (Zoloft*) 25 mg PO DAILY [facility] Vital Signs - 8 hr 06/23/17 06/23/17 06/23/17 08:20 08:24 11:32 Temperature 98.1 F 98.2 F Pulse Rate 103 70 Respiratory 18 18 24 Rate Blood Pressure 133/69 119/77 (mmHg) O2 Sat by Pulse 94 97 Oximetry Oxygen Devices in Use Now: Nasal Cannula Appearance: sitting up in chair, no distress, dyspneic when he talks Eyes: No Scleral Icterus Ears/Nose/Mouth/Throat: NL Teeth, Lips, Gums Neck: - - clavicular deformity Respiratory: - - scattered wheezes, few rhonchi Cardiovascular: NL Sounds; No Murmurs; No JVD, No Edema Abdominal: - - large superficial wound covers most of his abdomen with some foul smelling purulence Extremities: No Edema Skin: No Rash or Ulcers Neurological: Alert and Oriented x 3 Result Diagrams: 06/22/17 05:05 06/22/17 05:05 Additional Lab and Data: Lab Results 06/21/17 06/21/17 06/21/17 Range/Units 13:41 13:41 13:41 WBC (3.5-10.8) 10^3/ul RBC (4.0-5.4) 10^6/ul Hgb (14.0-18.0) g/dl Hct (42-52) % MCV (80-94) fL MCH (27-31) pg MCHC (31-36) g/dl RDW (10.5-15) % Plt Count (150-450) 10^3/ul MPV (7.4-10.4) um3 Neut % (Auto) (38-83) % Lymph % (Auto) (25-47) % [place] % (Auto) (1-9) % Eos % (Auto) (0-6) % Baso % (Auto) (0-2) % Absolute Neuts (auto) (1.5-7.7) 10^3/ul Absolute Lymphs (auto) (1.0-4.8) 10^3/ul Absolute Monos (auto) (0-0.8) 10^3/ul Absolute Eos (auto) (0-0.6) 10^3/ul Absolute Basos (auto) (0-0.2) 10^3/ul Absolute Nucleated RBC 10^3/ul Nucleated RBC % ESR (0-40) mm/Hr INR (Anticoag Therapy) 3.19 H (0.77-1.02) APTT 37.5 H (26.0-36.3) seconds Fibrinogen 369 (110.8-404.3) mg/dL Patient Temperature ABG pH (7.35-7.45) ABG pH (Temp Correct) ABG pCO2 (35-45) mmHg ABG pCO2 (Temp Corrct ABG pO2 (80-100) mmHg ABG pO2 (Temp Correct ABG HCO3 (19-31) mmol/L ABG O2 Saturation (95-98) % ABG Base Excess (-2.0-2.0) Respiration Rate O2 Delivery Device Ventilator Type Vent Mode FiO2 Inspiratory Time PEEP Pressure Support Pressure Control EPAP IPAP BiPAP Sodium (133-145) mmol/L Potassium (3.5-5.0) mmol/L Chloride (101-111) mmol/L Carbon Dioxide (22-32) mmol/L Anion Gap (2-11) mmol/L BUN (6-24) mg/dL Creatinine (0.67-1.17) mg/dL Est GFR ( Amer) (>60) Est GFR (Non-Af Amer) (>60) BUN/Creatinine Ratio (8-20) Glucose (70-100) mg/dL Lactic Acid (0.5-2.0) mmol/L Calcium (8.6-10.3) mg/dL Total Bilirubin (0.2-1.0) mg/dL AST (13-39) U/L ALT (7-52) U/L Alkaline Phosphatase (34-104) U/L Total Creatine Kinase (10-223) U/L Troponin I (<0.04) ng/mL C-Reactive Protein (< 5.00) mg/L B-Natriuretic Peptide 393 H ( - 100) pg/mL Total Protein (6.4-8.9) g/dL Albumin (3.2-5.2) g/dL Globulin (2-4) g/dL Albumin/Globulin Ratio (1-3) Procalcitonin 0.1 (<0.6) ng/mL 06/21/17 06/21/17 06/21/17 Range/Units 13:41 13:41 13:41 WBC 15.8 H (3.5-10.8) 10^3/ul RBC 4.43 (4.0-5.4) 10^6/ul Hgb 12.8 L (14.0-18.0) g/dl Hct 39 L (42-52) % MCV 88 (80-94) fL MCH 29 (27-31) pg MCHC 33 (31-36) g/dl RDW 15 (10.5-15) % Plt Count 252 (150-450) 10^3/ul MPV 9 (7.4-10.4) um3 Neut % (Auto) 91.3 H (38-83) % Lymph % (Auto) 2.0 L (25-47) % [place] % (Auto) 5.2 (1-9) % Eos % (Auto) 0.1 (0-6) % Baso % (Auto) 1.4 (0-2) % Absolute Neuts (auto) 14.5 H (1.5-7.7) 10^3/ul Absolute Lymphs (auto) 0.3 L (1.0-4.8) 10^3/ul Absolute Monos (auto) 0.8 (0-0.8) 10^3/ul Absolute Eos (auto) 0 (0-0.6) 10^3/ul Absolute Basos (auto) 0.2 (0-0.2) 10^3/ul Absolute Nucleated RBC 0 10^3/ul Nucleated RBC % 0.1 ESR 14 (0-40) mm/Hr INR (Anticoag Therapy) (0.77-1.02) APTT (26.0-36.3) seconds Fibrinogen (110.8-404.3) mg/dL Patient Temperature ABG pH (7.35-7.45) ABG pH (Temp Correct) ABG pCO2 (35-45) mmHg ABG pCO2 (Temp Corrct ABG pO2 (80-100) mmHg ABG pO2 (Temp Correct ABG HCO3 (19-31) mmol/L ABG O2 Saturation (95-98) % ABG Base Excess (-2.0-2.0) Respiration Rate O2 Delivery Device Ventilator Type Vent Mode FiO2 Inspiratory Time PEEP Pressure Support Pressure Control EPAP IPAP BiPAP Sodium 140 (133-145) mmol/L Potassium 4.7 (3.5-5.0) mmol/L Chloride 104 (101-111) mmol/L Carbon Dioxide 31 (22-32) mmol/L Anion Gap 5 (2-11) mmol/L BUN 44 H (6-24) mg/dL Creatinine 1.18 H (0.67-1.17) mg/dL Est GFR ( Amer) 77.6 (>60) Est GFR (Non-Af Amer) 60.3 (>60) BUN/Creatinine Ratio 37.3 H (8-20) Glucose 108 H (70-100) mg/dL Lactic Acid 1.2 (0.5-2.0) mmol/L Calcium 9.3 (8.6-10.3) mg/dL Total Bilirubin 1.20 H (0.2-1.0) mg/dL AST 38 (13-39) U/L ALT 49 (7-52) U/L Alkaline Phosphatase 78 (34-104) U/L Total Creatine Kinase 70 (10-223) U/L Troponin I 0.01 (<0.04) ng/mL C-Reactive Protein 17.12 H (< 5.00) mg/L B-Natriuretic Peptide ( - 100) pg/mL Total Protein 6.7 (6.4-8.9) g/dL Albumin 3.7 (3.2-5.2) g/dL Globulin 3.0 (2-4) g/dL Albumin/Globulin Ratio 1.2 (1-3) Procalcitonin (<0.6) ng/mL 06/21/17 06/21/17 Range/Units 14:04 17:08 WBC (3.5-10.8) 10^3/ul RBC (4.0-5.4) 10^6/ul Hgb (14.0-18.0) g/dl Hct (42-52) % MCV (80-94) fL MCH (27-31) pg MCHC (31-36) g/dl RDW (10.5-15) % Plt Count (150-450) 10^3/ul MPV (7.4-10.4) um3 Neut % (Auto) (38-83) % Lymph % (Auto) (25-47) % [place] % (Auto) (1-9) % Eos % (Auto) (0-6) % Baso % (Auto) (0-2) % Absolute Neuts (auto) (1.5-7.7) 10^3/ul Absolute Lymphs (auto) (1.0-4.8) 10^3/ul Absolute Monos (auto) (0-0.8) 10^3/ul Absolute Eos (auto) (0-0.6) 10^3/ul Absolute Basos (auto) (0-0.2) 10^3/ul Absolute Nucleated RBC 10^3/ul Nucleated RBC % ESR (0-40) mm/Hr INR (Anticoag Therapy) (0.77-1.02) APTT (26.0-36.3) seconds Fibrinogen (110.8-404.3) mg/dL Patient Temperature Not Reportable ABG pH 7.29 L (7.35-7.45) ABG pH (Temp Correct) Not Reportable ABG pCO2 56 H (35-45) mmHg ABG pCO2 (Temp Corrct Not Reportable ABG pO2 75 L (80-100) mmHg ABG pO2 (Temp Correct Not Reportable ABG HCO3 24.5 (19-31) mmol/L ABG O2 Saturation 96.9 (95-98) % ABG Base Excess -0.5 (-2.0-2.0) Respiration Rate Not Reportable O2 Delivery Device n/c Ventilator Type Not Reportable Vent Mode Not Reportable FiO2 2 Inspiratory Time Not Reportable PEEP Not Reportable Pressure Support Not Reportable Pressure Control Not Reportable EPAP Not Reportable IPAP Not Reportable BiPAP Not Reportable Sodium (133-145) mmol/L Potassium (3.5-5.0) mmol/L Chloride (101-111) mmol/L Carbon Dioxide (22-32) mmol/L Anion Gap (2-11) mmol/L BUN (6-24) mg/dL Creatinine (0.67-1.17) mg/dL Est GFR ( Amer) (>60) Est GFR (Non-Af Amer) (>60) BUN/Creatinine Ratio (8-20) Glucose (70-100) mg/dL Lactic Acid 0.8 (0.5-2.0) mmol/L Calcium (8.6-10.3) mg/dL Total Bilirubin (0.2-1.0) mg/dL AST (13-39) U/L ALT (7-52) U/L Alkaline Phosphatase (34-104) U/L Total Creatine Kinase (10-223) U/L Troponin I (<0.04) ng/mL C-Reactive Protein (< 5.00) mg/L B-Natriuretic Peptide ( - 100) pg/mL Total Protein (6.4-8.9) g/dL Albumin (3.2-5.2) g/dL Globulin (2-4) g/dL Albumin/Globulin Ratio (1-3) Procalcitonin (<0.6) ng/mL Microbiology and Other Data: Microbiology 06/22/17 03:42 Urine Culture - Preliminary Urine Enterococcus Faecalis Assess/Plan/Problems-Billing Assessment: - Patient Problems (1) CAP (community acquired pneumonia) Current Visit: Yes Status: Acute Code(s): J18.9 - PNEUMONIA, UNSPECIFIED ORGANISM SNOMED Code(s): 951114806 Comment: was started on broad spectrum abx for concern for abdominal wound; planned to de-escalate today but abdominal wound is growing multiple organisms, which is expected in a chronic wound, but will keep broad spectrum for abdomen, which will also cover cap (2) Chronic abdominal wound infection Current Visit: Yes Status: Acute Code(s): S31.109A - UNSP OPN WND ABD WALL, UNSP Q W/O PENET PERIT CAV, INIT; L08.9 - LOCAL INFECTION OF THE SKIN AND SUBCUTANEOUS TISSUE, UNSP SNOMED Code(s): 20448644 Comment: treating as active infection since he was septic at admission. sepsis has resolved on broad spectrum antibiotics, awaiting sensitivities of organisms besides mrsa. will try to choose po abx tomorrow. (3) Atrial fibrillation Current Visit: No Status: Acute Priority: Medium Code(s): I48.91 - UNSPECIFIED ATRIAL FIBRILLATION SNOMED Code(s): 08405613 Comment: poorly controlled on home metoprolol likely due to copd exacerbation , albuterol continue metoprolol 100mg bid AC with warfarin, but on hold now due to supratherapeutic inr. recheck inr tomorrow. (4) COPD (chronic obstructive pulmonary disease) Current Visit: No Status: Acute Priority: Medium Code(s): J44.9 - CHRONIC OBSTRUCTIVE PULMONARY DISEASE, UNSPECIFIED SNOMED Code(s): 64052645 Comment: nebs and steroids for acute exacerbation
[2017-06-23] MEDS: Atorvastatin* 10 MG TAB PO SCH (20:28)
[2017-06-23] MEDS: Sertraline* 25 MG TAB PO SCH (20:28)
[2017-06-24] MEDS: ZOSYN 3.375 GM Q8H per EXTENDED INFUSION IVPB SCH ×6 (01:01→18:24)
[2017-06-24] MEDS: Vancomycin(*) 1,000 MG in NS 0.9% 250 ML* 250 ML IVPB SCH ×3 (01:05→17:34)
[2017-06-24] MEDS: NS 0.9% 1000 ML* 1,000 ML IV SCH (05:26)
[2017-06-24 06:07] LABS: ABS Basophils 0 10^3/ul (0-0.2); ABS Eosinophils 0 10^3/ul (0-0.6); ABS Lymphocytes 0.3 10^3/ul (1.0-4.8); ABS Monocytes 0.9 10^3/ul (0-0.8); ABS Neutrophils 14.6 10^3/ul (1.5-7.7); ABS Nucleated RBC 0 10^3/ul; Eosinophil % 0 % (0-6); Hematocrit 37 % (42-52); Hemoglobin 12.1 g/dl (14.0-18.0); Lymphocyte % 2.1 % (25-47); Mean Corpuscular HGB Conc 33 g/dl (31-36); Mean Corpuscular Hemoglobin 29 pg (27-31); Mean Corpuscular Volume 88 fL (80-94); Mean Platelet Volume 9 um3 (7.4-10.4); Nucleated Red Blood Cells % 0; Platelet Count 234 10^3/ul (150-450); Red Blood Count 4.25 10^6/ul (4.0-5.4); Red Cell Distribution Width 15 % (10.5-15); White Blood Count 15.8 10^3/ul (3.5-10.8)
[2017-06-24 06:12] LABS: INR 2.58 (0.77-1.02)
[2017-06-24 06:26] LABS: EGFR Non-African American 93.2 (>60)
[2017-06-24] MEDS ORDERED: NS 0.9% 250 ML* 250 ML ONE ×2 (09:03→17:33)
[2017-06-24] MEDS ORDERED: NS 0.9% 100 ML* 100 ML ONE ×2 (09:03→17:33)
[2017-06-24] MEDS: Mometasone/Formoter 200/5 MDI INH SCH ×2 (09:04→21:00)
[2017-06-24] MEDS: Aspirin EC Low Dose* 81 MG TAB.EC PO SCH (09:06)
[2017-06-24] MEDS: Cholecalciferol TAB* 1000 UNITS PO SCH (09:06)
[2017-06-24] MEDS: Metoprolol Tartrate TAB* 50 mg PO SCH ×2 (09:06→20:01)
[2017-06-24] MEDS: Sertraline* 25 MG TAB PO SCH (09:06)
[2017-06-24] MEDS: Diltiazem CD CAP* 120 MG PO SCH (09:07)
[2017-06-24] MEDS: methylPREDNISolone SOD 40 MG* 1 ML VIAL IV SCH (12:39)
--- NOTE | 2017-06-24 15:09 | PN ---
Subjective Date of Service: 06/24/17 Interval History: feels good today and wants to go home. No pain. Denies shortness of breath or cough. No fevers. Family History: Unchanged from Admission Social History: Unchanged from Admission Past Medical History: Unchanged from Admission Objective Active Medications: Acetaminophen (Tylenol Tab*) 650 mg PO Q4H PRN PRN Reason: FEVER/PAIN Al Hydrox/Mg Hydrox/Simethicone (Maalox Plus*) 30 ml PO Q6H PRN PRN Reason: INDIGESTION Albuterol (Ventolin 2.5 Mg/3 Ml Neb.Vicenta*) 2.5 mg INH [id number] AWAKE PRN PRN Reason: sob/wheezing Albuterol (Ventolin Hfa Inhaler*) 2 puff INH Q4H PRN PRN Reason: DYSPNEA Last Admin: 06/23/17 12:21 Dose: 2 puff Albuterol/Ipratropium (Duoneb (Albuterol 2.5 Mg/Ipratropium 0.5 Mg)) 1 neb INH [id number] AWAKE PRN PRN Reason: sob/wheexing Aspirin (Aspirin Ec Low Dose*) 81 mg PO DAILY [facility] Last Admin: 06/24/17 09:06 Dose: 81 mg Atorvastatin Calcium (Lipitor*) 5 mg PO BEDTIME [facility] Last Admin: 06/23/17 20:28 Dose: 5 mg Cholecalciferol (Vitamin D Tab*) 1,000 units PO DAILY [facility] Last Admin: 06/24/17 09:06 Dose: 1,000 units Diltiazem HCl (Cardizem Cd Cap*) 120 mg PO DAILY [facility] Last Admin: 06/24/17 09:07 Dose: 120 mg Vancomycin HCl 1,000 mg/ (Sodium Chloride) 250 mls @ 166.667 mls/hr IVPB Q8H [facility] Last Admin: 06/24/17 07:57 Dose: 166.667 mls/hr Sodium Chloride (Ns 0.9% 1000 Ml*) 1,000 mls @ 100 mls/hr IV PER RATE [facility] Last Admin: 06/24/17 05:26 Dose: 100 mls/hr Piperacillin Sod/Tazobactam (Sod 3.375 gm/ Sodium Chloride) 100 mls @ 25 mls/ hr IVPB Q8H [facility] Last Admin: 06/24/17 09:54 Dose: 25 mls/hr Ipratropium [place] (Atrovent 0.5 Mg Neb.Vicenta*) 0.5 mg INH Q4H PRN PRN Reason: SOB/WHEEZING Methylprednisolone Sodium Succinate (Solu-Medrol 40 Mg) 40 mg IV Q12H [facility] Last Admin: 06/24/17 12:39 Dose: 40 mg Metoprolol Tartrate (Lopressor Tab*) 100 mg PO BID [facility] Last Admin: 06/24/17 09:06 Dose: 100 mg Metoprolol Tartrate (Lopressor Iv*) 5 mg IV Q6H PRN PRN Reason: HEART RATE/PULSE GREATER THAN: Mometasone Furoate/Formoterol Fumar (Dulera 200/5 Mdi*) 2 puff INH BID [facility] PRN Reason: Protocol Last Admin: 06/24/17 09:04 Dose: 2 puff Ondansetron HCl (Zofran Inj*) 4 mg IV Q4H PRN PRN Reason: NAUSEA/VOMITING Pharmacy Consult (Vancomycin Per Pharmacy*) 1 note FOLLOW UP . PRN PRN Reason: PER PROTOCOL Sertraline HCl (Zoloft*) 25 mg PO DAILY [facility] Last Admin: 06/24/17 09:06 Dose: 25 mg Vital Signs - 8 hr 06/24/17 06/24/17 06/24/17 07:50 08:00 09:07 Temperature 98.3 F Pulse Rate 102 103 Respiratory 18 18 18 Rate Blood Pressure 142/74 (mmHg) O2 Sat by Pulse 98 94 Oximetry 06/24/17 11:42 Temperature 99.4 F Pulse Rate 104 Respiratory 18 Rate Blood Pressure 123/72 (mmHg) O2 Sat by Pulse 97 Oximetry Oxygen Devices in Use Now: Nasal Cannula Appearance: alert, well appearing sitting up in the chair, nontoxic Eyes: No Scleral Icterus Ears/Nose/Mouth/Throat: NL Teeth, Lips, Gums Neck: NL Appearance and Movements; NL JVP Respiratory: Symmetrical Chest Expansion and Respiratory Effort, - - few scattered wheezes, good air movement Cardiovascular: NL Sounds; No Murmurs; No JVD, - - irregular rhythm Abdominal: - - large wound over abdomen, shallow with some clear yellowish drainage Lymphatic: No Cervical Adenopathy Extremities: No Edema Neurological: Alert and Oriented x 3 Result Diagrams: 06/24/17 05:24 06/24/17 05:24 Additional Lab and Data: Lab Results 06/21/17 06/21/17 06/21/17 Range/Units 13:41 13:41 13:41 WBC (3.5-10.8) 10^3/ul RBC (4.0-5.4) 10^6/ul Hgb (14.0-18.0) g/dl Hct (42-52) % MCV (80-94) fL MCH (27-31) pg MCHC (31-36) g/dl RDW (10.5-15) % Plt Count (150-450) 10^3/ul MPV (7.4-10.4) um3 Neut % (Auto) (38-83) % Lymph % (Auto) (25-47) % [place] % (Auto) (1-9) % Eos % (Auto) (0-6) % Baso % (Auto) (0-2) % Absolute Neuts (auto) (1.5-7.7) 10^3/ul Absolute Lymphs (auto) (1.0-4.8) 10^3/ul Absolute Monos (auto) (0-0.8) 10^3/ul Absolute Eos (auto) (0-0.6) 10^3/ul Absolute Basos (auto) (0-0.2) 10^3/ul Absolute Nucleated RBC 10^3/ul Nucleated RBC % ESR (0-40) mm/Hr INR (Anticoag Therapy) 3.19 H (0.77-1.02) APTT 37.5 H (26.0-36.3) seconds Fibrinogen 369 (110.8-404.3) mg/dL Patient Temperature ABG pH (7.35-7.45) ABG pH (Temp Correct) ABG pCO2 (35-45) mmHg ABG pCO2 (Temp Corrct ABG pO2 (80-100) mmHg ABG pO2 (Temp Correct ABG HCO3 (19-31) mmol/L ABG O2 Saturation (95-98) % ABG Base Excess (-2.0-2.0) Respiration Rate O2 Delivery Device Ventilator Type Vent Mode FiO2 Inspiratory Time PEEP Pressure Support Pressure Control EPAP IPAP BiPAP Sodium (133-145) mmol/L Potassium (3.5-5.0) mmol/L Chloride (101-111) mmol/L Carbon Dioxide (22-32) mmol/L Anion Gap (2-11) mmol/L BUN (6-24) mg/dL Creatinine (0.67-1.17) mg/dL Est GFR ( Amer) (>60) Est GFR (Non-Af Amer) (>60) BUN/Creatinine Ratio (8-20) Glucose (70-100) mg/dL Lactic Acid (0.5-2.0) mmol/L Calcium (8.6-10.3) mg/dL Total Bilirubin (0.2-1.0) mg/dL AST (13-39) U/L ALT (7-52) U/L Alkaline Phosphatase (34-104) U/L Total Creatine Kinase (10-223) U/L Troponin I (<0.04) ng/mL C-Reactive Protein (< 5.00) mg/L B-Natriuretic Peptide 393 H ( - 100) pg/mL Total Protein (6.4-8.9) g/dL Albumin (3.2-5.2) g/dL Globulin (2-4) g/dL Albumin/Globulin Ratio (1-3) Procalcitonin 0.1 (<0.6) ng/mL 06/21/17 06/21/17 06/21/17 Range/Units 13:41 13:41 13:41 WBC 15.8 H (3.5-10.8) 10^3/ul RBC 4.43 (4.0-5.4) 10^6/ul Hgb 12.8 L (14.0-18.0) g/dl Hct 39 L (42-52) % MCV 88 (80-94) fL MCH 29 (27-31) pg MCHC 33 (31-36) g/dl RDW 15 (10.5-15) % Plt Count 252 (150-450) 10^3/ul MPV 9 (7.4-10.4) um3 Neut % (Auto) 91.3 H (38-83) % Lymph % (Auto) 2.0 L (25-47) % [place] % (Auto) 5.2 (1-9) % Eos % (Auto) 0.1 (0-6) % Baso % (Auto) 1.4 (0-2) % Absolute Neuts (auto) 14.5 H (1.5-7.7) 10^3/ul Absolute Lymphs (auto) 0.3 L (1.0-4.8) 10^3/ul Absolute Monos (auto) 0.8 (0-0.8) 10^3/ul Absolute Eos (auto) 0 (0-0.6) 10^3/ul Absolute Basos (auto) 0.2 (0-0.2) 10^3/ul Absolute Nucleated RBC 0 10^3/ul Nucleated RBC % 0.1 ESR 14 (0-40) mm/Hr INR (Anticoag Therapy) (0.77-1.02) APTT (26.0-36.3) seconds Fibrinogen (110.8-404.3) mg/dL Patient Temperature ABG pH (7.35-7.45) ABG pH (Temp Correct) ABG pCO2 (35-45) mmHg ABG pCO2 (Temp Corrct ABG pO2 (80-100) mmHg ABG pO2 (Temp Correct ABG HCO3 (19-31) mmol/L ABG O2 Saturation (95-98) % ABG Base Excess (-2.0-2.0) Respiration Rate O2 Delivery Device Ventilator Type Vent Mode FiO2 Inspiratory Time PEEP Pressure Support Pressure Control EPAP IPAP BiPAP Sodium 140 (133-145) mmol/L Potassium 4.7 (3.5-5.0) mmol/L Chloride 104 (101-111) mmol/L Carbon Dioxide 31 (22-32) mmol/L Anion Gap 5 (2-11) mmol/L BUN 44 H (6-24) mg/dL Creatinine 1.18 H (0.67-1.17) mg/dL Est GFR ( Amer) 77.6 (>60) Est GFR (Non-Af Amer) 60.3 (>60) BUN/Creatinine Ratio 37.3 H (8-20) Glucose 108 H (70-100) mg/dL Lactic Acid 1.2 (0.5-2.0) mmol/L Calcium 9.3 (8.6-10.3) mg/dL Total Bilirubin 1.20 H (0.2-1.0) mg/dL AST 38 (13-39) U/L ALT 49 (7-52) U/L Alkaline Phosphatase 78 (34-104) U/L Total Creatine Kinase 70 (10-223) U/L Troponin I 0.01 (<0.04) ng/mL C-Reactive Protein 17.12 H (< 5.00) mg/L B-Natriuretic Peptide ( - 100) pg/mL Total Protein 6.7 (6.4-8.9) g/dL Albumin 3.7 (3.2-5.2) g/dL Globulin 3.0 (2-4) g/dL Albumin/Globulin Ratio 1.2 (1-3) Procalcitonin (<0.6) ng/mL 06/21/17 06/21/17 Range/Units 14:04 17:08 WBC (3.5-10.8) 10^3/ul RBC (4.0-5.4) 10^6/ul Hgb (14.0-18.0) g/dl Hct (42-52) % MCV (80-94) fL MCH (27-31) pg MCHC (31-36) g/dl RDW (10.5-15) % Plt Count (150-450) 10^3/ul MPV (7.4-10.4) um3 Neut % (Auto) (38-83) % Lymph % (Auto) (25-47) % [place] % (Auto) (1-9) % Eos % (Auto) (0-6) % Baso % (Auto) (0-2) % Absolute Neuts (auto) (1.5-7.7) 10^3/ul Absolute Lymphs (auto) (1.0-4.8) 10^3/ul Absolute Monos (auto) (0-0.8) 10^3/ul Absolute Eos (auto) (0-0.6) 10^3/ul Absolute Basos (auto) (0-0.2) 10^3/ul Absolute Nucleated RBC 10^3/ul Nucleated RBC % ESR (0-40) mm/Hr INR (Anticoag Therapy) (0.77-1.02) APTT (26.0-36.3) seconds Fibrinogen (110.8-404.3) mg/dL Patient Temperature Not Reportable ABG pH 7.29 L (7.35-7.45) ABG pH (Temp Correct) Not Reportable ABG pCO2 56 H (35-45) mmHg ABG pCO2 (Temp Corrct Not Reportable ABG pO2 75 L (80-100) mmHg ABG pO2 (Temp Correct Not Reportable ABG HCO3 24.5 (19-31) mmol/L ABG O2 Saturation 96.9 (95-98) % ABG Base Excess -0.5 (-2.0-2.0) Respiration Rate Not Reportable O2 Delivery Device n/c Ventilator Type Not Reportable Vent Mode Not Reportable FiO2 2 Inspiratory Time Not Reportable PEEP Not Reportable Pressure Support Not Reportable Pressure Control Not Reportable EPAP Not Reportable IPAP Not Reportable BiPAP Not Reportable Sodium (133-145) mmol/L Potassium (3.5-5.0) mmol/L Chloride (101-111) mmol/L Carbon Dioxide (22-32) mmol/L Anion Gap (2-11) mmol/L BUN (6-24) mg/dL Creatinine (0.67-1.17) mg/dL Est GFR ( Amer) (>60) Est GFR (Non-Af Amer) (>60) BUN/Creatinine Ratio (8-20) Glucose (70-100) mg/dL Lactic Acid 0.8 (0.5-2.0) mmol/L Calcium (8.6-10.3) mg/dL Total Bilirubin (0.2-1.0) mg/dL AST (13-39) U/L ALT (7-52) U/L Alkaline Phosphatase (34-104) U/L Total Creatine Kinase (10-223) U/L Troponin I (<0.04) ng/mL C-Reactive Protein (< 5.00) mg/L B-Natriuretic Peptide ( - 100) pg/mL Total Protein (6.4-8.9) g/dL Albumin (3.2-5.2) g/dL Globulin (2-4) g/dL Albumin/Globulin Ratio (1-3) Procalcitonin (<0.6) ng/mL Microbiology and Other Data: Microbiology 06/22/17 03:42 Urine Culture - Preliminary Urine Enterococcus Faecalis Assess/Plan/Problems-Billing Assessment: - Patient Problems (1) Chronic abdominal wound infection Current Visit: Yes Status: Acute Code(s): S31.109A - UNSP OPN WND ABD WALL, UNSP Q W/O PENET PERIT CAV, INIT; L08.9 - LOCAL INFECTION OF THE SKIN AND SUBCUTANEOUS TISSUE, UNSP SNOMED Code(s): 42171549 Comment: with superimposed infection s/p debridement at admission. sepsis has resolved on broad spectrum antibiotics, but 5 different organisms are growing; certainly the wound is colonized, so it is hard to know what is pathogenic. I think he warrants another day of IV antibiotics and ID consultation tomorrow. Dr. Ennis recommended referral to a tertiary center for definitive surgery (2) CAP (community acquired pneumonia) Current Visit: Yes Status: Acute Code(s): J18.9 - PNEUMONIA, UNSPECIFIED ORGANISM SNOMED Code(s): 325008402 Comment: broad spectrum abx from wound will also cover cap (3) Atrial fibrillation Current Visit: No Status: Acute Priority: Medium Code(s): I48.91 - UNSPECIFIED ATRIAL FIBRILLATION SNOMED Code(s): 58141243 Comment: poorly controlled on home metoprolol likely due to copd exacerbation , albuterol continue metoprolol 100mg bid AC with warfarin, now back into therapeutic range; will resume warfarin (4) COPD (chronic obstructive pulmonary disease) Current Visit: No Status: Acute Priority: Medium Code(s): J44.9 - CHRONIC OBSTRUCTIVE PULMONARY DISEASE, UNSPECIFIED SNOMED Code(s): 29632301 Comment: nebs and steroids for acute exacerbation
[2017-06-24] MEDS ORDERED: Warfarin TAB(*) 5 MG PO SCH (17:00)
[2017-06-24] MEDS: Atorvastatin* 10 MG TAB PO SCH (20:01)
[2017-06-25] MEDS: ZOSYN 3.375 GM Q8H per EXTENDED INFUSION IVPB SCH ×4 (00:36→09:16)
[2017-06-25] MEDS: Vancomycin(*) 1,000 MG in NS 0.9% 250 ML* 250 ML IVPB SCH ×2 (00:36→09:16)
[2017-06-25] MEDS: NS 0.9% 1000 ML* 1,000 ML IV SCH ×2 (00:36→08:38)
[2017-06-25] MEDS: methylPREDNISolone SOD 40 MG* 1 ML VIAL IV SCH ×2 (00:36→11:47)
[2017-06-25 05:07] LABS: ABS Basophils 0 10^3/ul (0-0.2); ABS Eosinophils 0 10^3/ul (0-0.6); ABS Lymphocytes 0.3 10^3/ul (1.0-4.8); ABS Monocytes 0.4 10^3/ul (0-0.8); ABS Neutrophils 13.9 10^3/ul (1.5-7.7); ABS Nucleated RBC 0 10^3/ul; Eosinophil % 0 % (0-6); Hematocrit 40 % (42-52); Hemoglobin 12.7 g/dl (14.0-18.0); Lymphocyte % 1.7 % (25-47); Mean Corpuscular HGB Conc 32 g/dl (31-36); Mean Corpuscular Hemoglobin 28 pg (27-31); Mean Corpuscular Volume 89 fL (80-94); Mean Platelet Volume 8 um3 (7.4-10.4); Nucleated Red Blood Cells % 0.1; Platelet Count 206 10^3/ul (150-450); Red Blood Count 4.52 10^6/ul (4.0-5.4); Red Cell Distribution Width 16 % (10.5-15); White Blood Count 14.5 10^3/ul (3.5-10.8)
[2017-06-25 05:15] LABS: INR 1.75 (0.77-1.02)
[2017-06-25 05:19] LABS: EGFR Non-African American 103.4 (>60)
[2017-06-25] MEDS: Mometasone/Formoter 200/5 MDI INH SCH (08:14)
[2017-06-25] MEDS ORDERED: NS 0.9% 250 ML* 250 ML ONE (09:06)
[2017-06-25] MEDS ORDERED: NS 0.9% 100 ML* 100 ML ONE (09:06)
[2017-06-25] MEDS: Diltiazem CD CAP* 120 MG PO SCH (09:15)
[2017-06-25] MEDS: Sertraline* 25 MG TAB PO SCH (09:15)
[2017-06-25] MEDS: Cholecalciferol TAB* 1000 UNITS PO SCH (09:15)
[2017-06-25] MEDS: Metoprolol Tartrate TAB* 50 mg PO SCH (09:15)
[2017-06-25] MEDS: Aspirin EC Low Dose* 81 MG TAB.EC PO SCH (09:16)
[2017-06-25 16:27] VITALS: BP 125/71
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
== END 2017-06-25 16:19 | disposition home or self-care (01) | DRG 919 ==
LOC: ED 12:44 → MEDTELE 19:08
PROVIDERS: ADMIT Nurse Practitioner; ATTEND Internal Medicine
PROC: 5A09357 Assistance with Respiratory Ventilation, Less than 24 Consecutive Hours, Continuous Positive Airway Pressure (ICD-10-PCS; principal; 2017-06-25)
DX: T85.79XA Infection and inflammatory reaction due to other internal prosthetic devices, implants and grafts, initial encounter (principal); J96.21 Acute and chronic respiratory failure with hypoxia; R65.20 Severe sepsis without septic shock; I11.0 Hypertensive heart disease with heart failure; J18.9 Pneumonia, unspecified organism; R64 Cachexia; I50.22 Chronic systolic (congestive) heart failure; I48.91 Unspecified atrial fibrillation; A41.9 Sepsis, unspecified organism; J44.1 Chronic obstructive pulmonary disease with (acute) exacerbation; Y73.2 Prosthetic and other implants, materials and accessory gastroenterology and urology devices associated with adverse incidents; Y92.9 Unspecified place or not applicable; Z86.718 Personal history of other venous thrombosis and embolism; N40.0 Benign prostatic hyperplasia without lower urinary tract symptoms; M19.90 Unspecified osteoarthritis, unspecified site; Z83.3 Family history of diabetes mellitus; Z87.891 Personal history of nicotine dependence; Z82.3 Family history of stroke; E78.00 Pure hypercholesterolemia, unspecified; M95.8 Other specified acquired deformities of musculoskeletal system; I87.8 Other specified disorders of veins
CPT/HCPCS: 36415; 36600; 71045; 74177; 80048; 80053; 80076; 80202; 81003; 81015; 82550; 82803; 83605; 83735; 83880; 84145; 84484; 85025; 85384; 85610; 85652; 85730; 86140; 87040; 87070; 87077; 87086; 87186; 87205; 87640; 87641; 93005; 94640; 94660; 94760; 99285; A9270-GY; J2543; J2920; J3370; Q9967

== ENCOUNTER 2017-06-26 19:50 | Inpatient (IN) | payer MEDICARE ==
[2017-06-26] MEDS ORDERED: Succinylcholine* 20 MG/ML 10 ML VIAL ONE (20:10)
[2017-06-26] MEDS ORDERED: Etomidate* 2 MG/ML 20 ML VIAL (40 MG) ONE (20:10)
[2017-06-26] MEDS ORDERED: Propofol* 100 ML ONE (20:11)
--- NOTE | 2017-06-26 20:47 | RAD ---
INDICATION: Postintubation. COMPARISON: Chest x-ray June 2017. TECHNIQUE: Single AP portable view of the chest was obtained. FINDINGS: Image quality is compromised due to the relative inferiority of a portable chest x-ray. There is been interval placement of an endotracheal tube with the tip approximately 4.3 cm above the bisi. A gastric tube is seen descending below the level of the diaphragm. Again seen is hyperaeration consistent with COPD. There is increased density obscuring the bilateral lung bases. The pulmonary vasculature is engorged and indistinct. Visualized bones are normal for the patient's age. IMPRESSION: 1. Interval placement of endotracheal and gastric tubes in appropriate position. 2. Densities obscuring the right greater than left lung bases are most consistent with pleural effusions.
[2017-06-26 20:48] LABS: Hematocrit 41 % (42-52); Hemoglobin 12.7 g/dl (14.0-18.0); Mean Corpuscular HGB Conc 31 g/dl (31-36); Mean Corpuscular Hemoglobin 29 pg (27-31); Mean Corpuscular Volume 91 fL (80-94); Mean Platelet Volume 8 um3 (7.4-10.4); Platelet Count 308 10^3/ul (150-450); Red Blood Count 4.45 10^6/ul (4.0-5.4); Red Cell Distribution Width 16 % (10.5-15); White Blood Count 19.8 10^3/ul (3.5-10.8)
[2017-06-26 20:57] LABS: INR 2.61 (0.77-1.02)
[2017-06-26 21:00] LABS: EGFR Non-African American 95.9 (>60)
[2017-06-26] MEDS ORDERED: Propofol* 500 MG/50 ML BTL IV SCH (21:00)
[2017-06-26 21:12] LABS: Urine Appearance Cloudy; Urine Blood 3+ (Negative); Urine Color Yellow; Urine Ketones Negative (Negative); Urine Protein 2+(100 mg/dL) (Negative); Urine Specific Gravity 1.018 (1.010-1.030); Urine Urobilinogen Negative (Negative)
[2017-06-26 21:15] LABS: ABS Basophils 0 10^3/ul (0-0.2); ABS Eosinophils 0 10^3/ul (0-0.6); ABS Lymphocytes 0.9 10^3/ul (1.0-4.8); ABS Monocytes 1.6 10^3/ul (0-0.8); ABS Neutrophils 17.2 10^3/ul (1.5-7.7); ABS Nucleated RBC 0 10^3/ul; Eosinophil % 0.1 % (0-6); Lymphocyte % 4.7 % (25-47); Nucleated Red Blood Cells % 0.1
[2017-06-26] MEDS ORDERED: cefTRIAXone(*) 1 GM in NS 0.9% 50 ML* 50 ML IVPB ONE (21:37)
[2017-06-26] MEDS ORDERED: Piperacillin/Tazobac ADVAN(*) 3.375 GM in NS 0.9% 100 ML* 100 ML IVPB ONE (22:00)
[2017-06-26] MEDS ORDERED: Vancomycin(*) 1,000 MG VIAL IVPB SCH (22:00)
--- NOTE | 2017-06-26 22:01 | RAD ---
INDICATION: Unresponsiveness COMPARISON: Most recent CT of the brain is dated April 02, 2017 TECHNIQUE: Contiguous axial sections of the brain were obtained from the skull base to the vertex without contrast. FINDINGS: The ventricles, cisterns and sulci symmetrical age-appropriate involutional changes.. There are periventricular and subcortical white matter changes most consistent with chronic microvascular disease. There is a stable focus of encephalomalacia at the left parietal-occipital lobe unchanged from the prior CT of the brain. Otherwise the gramajo-white matter differentiation is adequately maintained and there is no sulcal effacement. No significant focal abnormality or mass effect is present. There is no evidence for intracranial hemorrhage. No significant focal osseous abnormality is present. The visualized portion of the paranasal sinuses appear clear. The mastoid air cells are well aerated bilaterally. IMPRESSION: Similar appearance of microvascular disease and encephalomalacia compared to the April 10, 2017 CT of the brain.
[2017-06-26] MEDS ORDERED: NS 0.9% 1000 ML*IV.FLUID IV ONE (22:08)
[2017-06-26] MEDS ORDERED: Ondansetron INJ* 2 MG/ML VIAL IV PRN (22:19)
[2017-06-26] MEDS ORDERED: Al Hydrox/Mg Hydrox/Simet LIQ* 30 ML UDC PO PRN (22:19)
[2017-06-26] MEDS ORDERED: Senna TAB PO PRN (22:19)
[2017-06-26] MEDS ORDERED: Docusate CAP* 100 MG PO PRN (22:19)
[2017-06-26] MEDS ORDERED: Propofol* 100 ML IV SCH (22:35)
[2017-06-26] MEDS ORDERED: Albuterol 2.5 MG/3 ML NEB.SOL* (0.083%) INH PRN (22:50)
[2017-06-26] MEDS ORDERED: NS 0.9% 1000 ML* 1,000 ML IV ONE (22:52)
[2017-06-26] MEDS ORDERED: Zosyn per Pharmacy* NOTE FOLLOW UP SCH (23:00)
[2017-06-26] MEDS ORDERED: Vancomycin(*) 1,000 MG - ED ONCE IVPB ONE ×2 (23:00)
[2017-06-27] MEDS: methylPREDNISolone SOD 40 MG* 1 ML VIAL IV SCH ×4 (00:37→23:35)
[2017-06-27] MEDS: NS 0.9% 1000 ML* 1,000 ML IV SCH ×2 (00:37→09:58)
[2017-06-27] MEDS ORDERED: Vancomycin per Pharmacy* NOTE FOLLOW UP PRN (00:39)
[2017-06-27] MEDS: Lactulose* 15 ML UDC NG TUBE SCH ×4 (00:40→23:40)
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
[2017-06-27] MEDS ORDERED: ZOSYN 3.375 GM x ONE DOSE over 30 miuntes IVPB ×2 (01:00)
[2017-06-27] MEDS ORDERED: Al Hydrox/Mg Hydrox/Simet LIQ* 30 ML UDC NG TUBE PRN (01:15)
[2017-06-27] MEDS ORDERED: Senna TAB NG TUBE PRN (01:16)
[2017-06-27] MEDS ORDERED: Docusate LIQ* 100 MG/10 ML UDC PO PRN (01:42)
[2017-06-27] MEDS ORDERED: ZOSYN 3.375 GM Q8H per EXTENDED INFUSION IVPB SCH ×2 (02:30)
[2017-06-27] MEDS: Propofol* 100 ML IV SCH ×2 (04:35→14:06)
[2017-06-27] MEDS: ZOSYN 3.375 GM Q8H per EXTENDED INFUSION IVPB SCH ×6 (05:15→20:49)
[2017-06-27 05:59] LABS: ABS Basophils 0 10^3/ul (0-0.2); ABS Eosinophils 0 10^3/ul (0-0.6); ABS Lymphocytes 0.1 10^3/ul (1.0-4.8); ABS Monocytes 0.7 10^3/ul (0-0.8); ABS Nucleated RBC 0 10^3/ul; Eosinophil % 0 % (0-6); Hematocrit 32 % (42-52); Hemoglobin 10.6 g/dl (14.0-18.0); Mean Corpuscular HGB Conc 33 g/dl (31-36); Mean Corpuscular Hemoglobin 29 pg (27-31); Mean Corpuscular Volume 88 fL (80-94); Mean Platelet Volume 8 um3 (7.4-10.4); Nucleated Red Blood Cells % 0; Platelet Count 170 10^3/ul (150-450); Red Blood Count 3.64 10^6/ul (4.0-5.4); Red Cell Distribution Width 15 % (10.5-15); White Blood Count 13.8 10^3/ul (3.5-10.8)
--- NOTE | 2017-06-27 07:54 | RAD ---
HISTORY: Right lower extremity edema COMPARISONS: None relevant TECHNIQUE: Multiple transverse and longitudinal ultrasound images were obtained of the right lower extremity from the level of the common femoral vein inferiorly through to the infrapopliteal veins using grayscale, color Doppler, and spectral Doppler imaging with and without compression and with augmentation. Comparison images were obtained of the contralateral common femoral vein. FINDINGS: VEINS: The venous system of the right lower extremity is compressible throughout its course, with normal flow on color Doppler imaging and normal response to augmentation on spectral Doppler imaging. SOFT TISSUES: Unremarkable. OTHER FINDINGS: None. IMPRESSION: NO RIGHT LOWER EXTREMITY DEEP VEIN THROMBOSIS
[2017-06-27] MEDS: Sertraline* 25 MG TAB NG TUBE SCH (08:07)
[2017-06-27] MEDS: Aspirin Low Dose CHEW TAB* 81 MG NG TUBE SCH (08:07)
[2017-06-27] MEDS ORDERED: metroNIDAZOLE TAB* 250 MG PO SCH (09:00)
[2017-06-27] MEDS ORDERED: Sertraline* 100 MG TAB PO SCH (09:00)
[2017-06-27] MEDS: Vancomycin(*) 750 MG in NS 0.9% 250 ML* 250 ML IVPB SCH ×2 (09:26→17:43)
--- NOTE | 2017-06-27 12:03 | PN ---
Progress Note - Progress Note Date of Service: 06/27/17 Note: [facility] Progress Note Sedated on vent with Propofol gtt SBP 119 HR 82 FiO2 35% PEEP 5 SpO2 100 Skin no diaphoresis Sclerae anicteric Nasal bridge with ecchymosis Oral mucosa pink, oral ETT and GT in place Lungs with bilateral BS...diminished in bases, no wheezes Cor RRR no murmur, no rub Abd soft dist, nontender webb Ext edematous, LUE with kerlix wrap and PIVs x2 WBC 13.8 Hgb 10.6 Plt 170 7.42/58/65 HCO3 33 K 3.8 BUN/Creat 30/0.66 Alb 2.4 Trop 0.04; 0.03 CXR Bilat effusions R>>L, ETT in place IMP: S/P Cardiopulm Arrest Acute Hypoxemic and Hypercapneic Resp Failure Advanced COPD Bilateral effusions ...suspect large loculated Rt effusion Peripheral edema Chronic Protein Calorie Malnutrition PLAN: Continue full MV support CT Chest to evaluate effusions Steroids Antibiotics Keep HOB raised DVT prophyl Acid peptic Supp Suctioning PRN Try to obtain PICC as expect extended course in hospital T>35 min, [facility] services rendered
[2017-06-27] MEDS: Warfarin TAB(*) 4 MG NG TUBE SCH (17:43)
[2017-06-27] MEDS ORDERED: fentaNYL* 50 MCG/ML 2 ML VIAL (100 MCG VIAL) IV PRN (19:19)
[2017-06-27] MEDS ORDERED: fentaNYL* 50 MCG/ML 2 ML VIAL (100 MCG VIAL) ONE (20:32)
[2017-06-27] MEDS: fentaNYL* 50 MCG/ML 2 ML VIAL (100 MCG VIAL) IV SLOW PU PRN (20:48)
[2017-06-28] MEDS ORDERED: Pantoprazole IV* 40 MG IV SCH
[2017-06-28] MEDS ORDERED: Iohexol 300* (CONTRAST) 10 ML SDV IV ONE ×2 (00:14→17:02)
[2017-06-28] MEDS: fentaNYL* 50 MCG/ML 2 ML VIAL (100 MCG VIAL) IV SLOW PU PRN ×3 (00:32→18:29)
[2017-06-28] MEDS: Vancomycin(*) 750 MG in NS 0.9% 250 ML* 250 ML IVPB SCH ×4 (00:49→19:39)
[2017-06-28] MEDS: Chlorhexidine MOUTHWASH 0.12%* 15 ML UDC TOPICAL SCH ×5 (05:44→21:03)
[2017-06-28] MEDS: ZOSYN 3.375 GM Q8H per EXTENDED INFUSION IVPB SCH ×6 (05:44→21:04)
[2017-06-28] MEDS ORDERED: Vancomycin Trough Check NOTE FOLLOW UP ONE (07:30)
[2017-06-28] MEDS: methylPREDNISolone SOD 40 MG* 1 ML VIAL IV SCH ×2 (08:30→21:03)
[2017-06-28] MEDS: Aspirin Low Dose CHEW TAB* 81 MG NG TUBE SCH (09:07)
[2017-06-28] MEDS: Lactulose* 15 ML UDC NG TUBE SCH ×3 (09:07→21:04)
[2017-06-28] MEDS: Sertraline* 25 MG TAB NG TUBE SCH (09:07)
[2017-06-28 09:29] LABS: Vancomycin Trough 14.3 mcg/mL
[2017-06-28] MEDS: Propofol* 100 ML IV SCH ×3 (10:31→22:40)
[2017-06-28 10:35] LABS: ABS Basophils 0 10^3/ul (0-0.2); ABS Eosinophils 0 10^3/ul (0-0.6); ABS Lymphocytes 0.3 10^3/ul (1.0-4.8); ABS Monocytes 0.5 10^3/ul (0-0.8); ABS Neutrophils 12.3 10^3/ul (1.5-7.7); ABS Nucleated RBC 0 10^3/ul; Eosinophil % 0 % (0-6); Hematocrit 35 % (42-52); Hemoglobin 11.5 g/dl (14.0-18.0); Lymphocyte % 2.1 % (25-47); Mean Corpuscular HGB Conc 33 g/dl (31-36); Mean Corpuscular Hemoglobin 28 pg (27-31); Mean Corpuscular Volume 87 fL (80-94); Mean Platelet Volume 8 um3 (7.4-10.4); Nucleated Red Blood Cells % 0; Platelet Count 194 10^3/ul (150-450); Red Blood Count 4.04 10^6/ul (4.0-5.4); Red Cell Distribution Width 15 % (10.5-15); White Blood Count 13.1 10^3/ul (3.5-10.8)
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
[2017-06-28] MEDS ORDERED: Digoxin IV* 0.5 MG/2 ML AMP (0.25 MG/ML) IV SLOW PU ONE ×2 (12:06→16:33)
--- NOTE | 2017-06-28 12:25 | PN ---
Progress Note - Progress Note Date of Service: 06/28/17 Note: [facility] Progress Note Lightly sedated on vent with Propofol gtt SBP 90-115 HR 115 irreg FiO2 35% PEEP 5 SpO2 100 Skin no diaphoresis Sclerae anicteric, pupils equal and reactive Nasal bridge with ecchymosis Oral mucosa pink, oral ETT and GT in place Lungs with bilateral BS...diminished in bases, no wheezes Cor RRR no murmur, no rub Abd soft dist, nontender, broad old scar tissue mid-abdomen webb Ext edematous, LUE with kerlix wrap and PIV DPs 1(+) bilat WBC 13.1 Hgb 11.5 Plt 194 K 4.0 BUN/Creat 33/0.68 Alb 2.3 IMP: S/P Cardiopulm Arrest Acute Hypoxemic and Hypercapneic Resp Failure Advanced COPD Bilateral effusions ...suspect large loculated Rt effusion A Fib Peripheral edema Chronic Protein Calorie Malnutrition PLAN: Continue full MV support CT Chest to evaluate effusions Reduce steroids to q 12 hrs Digoxin Change Protonix to enteral route Sedation as needed Antibiotics Keep HOB raised DVT prophyl Acid peptic Supp Suctioning PRN Try to obtain PICC as expect extended course in hospital Discussed with Nurse and Multi-D team T>35 min, [facility] services rendered
--- NOTE | 2017-06-28 16:44 | RAD ---
INDICATION: Respiratory distress COMPARISON: Chest x-ray June 26, 2017 TECHNIQUE: An AP portable view obtained at 1634 hours is submitted. FINDINGS: Bones/Soft Tissues: There are no acute bony findings. There is an endotracheal tube approximately 2 cm above the bisi. There is an orogastric tube passes normally seated the mediastinum. Cardiomediastinal: The heart is normal in size. Lungs: Chronic interstitial and alveolar changes with hyperinflation. Pleura: Chronic pleural changes in addition to bilateral pleural effusions right greater than left, unchanged. Other: None IMPRESSION: CHRONIC PLEURAL AND PARENCHYMAL FINDINGS. ENDOTRACHEAL AND OROGASTRIC TUBES POSITIONED DESCRIBED.
--- NOTE | 2017-06-28 17:52 | RAD ---
INDICATION: Respiratory distress. Difficult ventilation. COMPARISON: Chest x-ray same date; low dose screening CT examination of the chest April 13, 2017 TECHNIQUE: Axial source images were obtained from the thoracic inlet to the hemidiaphragms. Coronal and sagittal reconstructed images were acquired. 80 mL Omnipaque 300 was utilized The visualized neck to include the thyroid appear normal. Chest wall: There are no acute abnormalities of the bony thorax or chest wall. There is osteopenia with kyphosis and underlying spondylitic change There is no supraclavicular, infraclavicular, or axillary lymphadenopathy. Lungs : Mild airspace disease in right lung base with consolidation. This is likely compression atelectasis. There is minimal airspace disease in left lung base. There is underlying emphysematous change. There are no endobronchial lesions. Cardiomediastinal structures: The heart is normal in size. There is no pericardial effusion. There is no evidence of aortic aneurysm or dissection. The pulmonary vessels appear normal. There is no mediastinal or hilar adenopathy. The esophagus appears normal. Pleura : There is loculated pleural fluid in the right chest which accounts for the chest x-ray findings. There is also small amount of dependent pleural fluid in both lung bases right greater than left. Other: There is an endotracheal tube 1 cm above the bisi. There is an orogastric tube in the body of the stomach. IMPRESSION: 1. Endotracheal and orogastric tubes positioned as described in satisfactory positions. 2. Underlying emphysema. 3. Loculated pleural fluid right chest in addition to small amount of dependent pleural fluid in both lung bases. Minor right basilar airspace disease perhaps related to compression atelectasis.
[2017-06-28] MEDS: Warfarin TAB(*) 4 MG NG TUBE SCH (18:26)
[2017-06-28] MEDS: Metoprolol Tartrate TAB* 25 MG PO SCH ×2 (18:33→22:40)
[2017-06-28] MEDS: Famotidine TAB* 20 MG PO SCH (21:04)
[2017-06-29] MEDS: Chlorhexidine MOUTHWASH 0.12%* 15 ML UDC TOPICAL SCH ×6 (00:28→21:38)
[2017-06-29] MEDS: Vancomycin(*) 750 MG in NS 0.9% 250 ML* 250 ML IVPB SCH ×3 (02:31→18:41)
[2017-06-29] MEDS: Metoprolol Tartrate TAB* 25 MG PO SCH ×4 (05:13→22:36)
[2017-06-29] MEDS: ZOSYN 3.375 GM Q8H per EXTENDED INFUSION IVPB SCH ×6 (05:14→21:38)
[2017-06-29] MEDS: methylPREDNISolone SOD 40 MG* 1 ML VIAL IV SCH ×2 (10:37→21:38)
[2017-06-29] MEDS: Aspirin Low Dose CHEW TAB* 81 MG NG TUBE SCH (10:37)
[2017-06-29] MEDS: Lactulose* 15 ML UDC NG TUBE SCH ×3 (10:37→21:38)
[2017-06-29] MEDS: Sertraline* 25 MG TAB NG TUBE SCH (10:37)
[2017-06-29] MEDS: Famotidine TAB* 20 MG PO SCH ×2 (10:37→21:38)
[2017-06-29 12:32] LABS: Hematocrit 39 % (42-52); Hemoglobin 12.5 g/dl (14.0-18.0); Mean Corpuscular HGB Conc 32 g/dl (31-36); Mean Corpuscular Hemoglobin 28 pg (27-31); Mean Corpuscular Volume 87 fL (80-94); Mean Platelet Volume 8 um3 (7.4-10.4); Platelet Count 201 10^3/ul (150-450); Red Blood Count 4.46 10^6/ul (4.0-5.4); Red Cell Distribution Width 15 % (10.5-15); White Blood Count 15.4 10^3/ul (3.5-10.8)
--- NOTE | 2017-06-29 12:44 | RAD ---
INDICATION: PICC placement. COMPARISON: Comparison is made with a prior study from June 28, 2017. TECHNIQUE: A portable view of the chest was obtained. FINDINGS: Note is made of endotracheal and nasogastric tubes which appears similar in position to the prior study. There is a PICC present entering on the left side. The catheter tip projects over the right atrium. There is mild diffuse prominence of the interstitial markings. There is a small a moderate size right pleural effusion and a small left pleural effusion which appear unchanged. IMPRESSION: 1. STATUS POST PICC PLACEMENT. 2. FINDINGS SUGGESTIVE OF CONGESTIVE HEART FAILURE, UNCHANGED.
[2017-06-29 12:56] LABS: EGFR Non-African American 142.6 (>60)
[2017-06-29] MEDS: Albuterol/Ipratropium NEB.SOL* Albuterol 2.5 MG/Ipratropium 0.5 MG 3 ML INH PRN (13:22)
--- NOTE | 2017-06-29 15:08 | PN ---
Date of Service: 06/29/17 - [facility] note Critical Care Services: Pt seen and examined at bedside. Pt was alert and following commands while off of sedation, was extubated, answering questions appropriately. No other acute events o/n other than one episode of desaturation and ventilator dyssyncrony due to mucus plugging Vital Signs: Temp Pulse Resp BP SpO2 FiO2 98.2 F 110 23 116/74 100 35 06/29/17 14:00 06/29/17 14:00 06/29/17 14:00 06/29/17 14:00 06/29/17 14:00 06/29 13:22 Physical Exam: Gen: Pt in NAD, alert, awake HEENT: PERRLA, no JVD, no accessory muscle usage Lungs:Diminished a/e b/l, no wheeze Cardiac: S1, S2+, regular Abdomen: Soft, BS+ Extremities: Edema of UE and LE, chronic, had IV infiltrated in arm yesterday while administering contrast, c/o tingling, pulses palpable and brisk Neuro: Alert, awake, oriented Skin: Chronic changes, bruises from fall at home Fluid Balance (Past 24 Hours): I= 596 O=600 Net -4 Intake & Output 06/27/17 06/28/17 06/29/17 06/30/17 06:59 06:59 06:59 06:59 Intake Total 596 1821.5 1465 596 Output Total 800 1225 1400 600 Balance -204 596.5 65 -4 Weight 167 lb 8.821 oz 173 lb 15.115 oz 179 lb 0.246 oz Intake: IV Fluids 538 950 647 418 ABX - VANCOMYCIN 505 401 ABX - ZOSYN 453 112 NS (0.9%) 538 497 30 17 IVPB 646 385 ABX - VANCOMYCIN 546 385 ABX - ZOSYN 100 Medicated IV 58 225.5 303 78 CC - Propofol/Diprivan 58 225.5 303 78 NG Tube Irrigate Amount 130 100 Output: Hardy 800 1225 1400 600 Other: Date of Last Bowel 06/29/17 2/+ Movement # Bowel Movements 1 1 Estimated Stool Amount Large Large Labs: Laboratory Results - last 24 hr 06/29/17 06/29/17 06/29/17 11:10 12:00 12:00 WBC RBC Hgb Hct MCV MCH MCHC RDW Plt Count MPV Patient Temperature Not Reportable ABG pH 7.42 ABG pH (Temp Correct) Not Reportable ABG pCO2 62 H ABG pCO2 (Temp Corrct Not Reportable ABG pO2 111 H ABG pO2 (Temp Correct Not Reportable ABG HCO3 35.1 H ABG O2 Saturation 98.9 H ABG Base Excess 13.1 H Respiration Rate Not Reportable Ventilator Type Not Reportable Vent Mode pcv FiO2 35 Inspiratory Time Not Reportable PEEP 5 Pressure Support Not Reportable Pressure Control 20 EPAP Not Reportable IPAP Not Reportable BiPAP Not Reportable Sodium 141 Potassium 4.2 Chloride 104 Carbon Dioxide 38 H BUN 32 H Creatinine 0.56 L Est GFR ( Amer) 183.4 Est GFR (Non-Af Amer) 142.6 BUN/Creatinine Ratio 57.1 H Glucose 111 H Lactic Acid Calcium 7.8 L Ammonia 56 H 06/29/17 06/29/17 12:00 12:00 WBC 15.4 H RBC 4.46 Hgb 12.5 L Hct 39 L MCV 87 MCH 28 MCHC 32 RDW 15 Plt Count 201 MPV 8 Patient Temperature ABG pH ABG pH (Temp Correct) ABG pCO2 ABG pCO2 (Temp Corrct ABG pO2 ABG pO2 (Temp Correct ABG HCO3 ABG O2 Saturation ABG Base Excess Respiration Rate Ventilator Type Vent Mode FiO2 Inspiratory Time PEEP Pressure Support Pressure Control EPAP IPAP BiPAP Sodium Potassium Chloride Carbon Dioxide BUN Creatinine Est GFR ( Amer) Est GFR (Non-Af Amer) BUN/Creatinine Ratio Glucose Lactic Acid 0.9 Calcium Ammonia Nutrition: Will start oral feeds after bedside swallow evaluation Impression: 76 y o f with 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 Acute on chronic hypoxic and hypercapnic resp failure s/p intubation 06/26/17 , extubated 06/29/17 2. COPD, advanced on home O2 and NIPPV 3. Sepsis sec to PNA 4. Loculated rt pleural effusion 5. Anemia of chronic disease 6. Malnutrition 7. A.fib, rate controlled 8. CHF without acute exacerbation Plan: 1. Neuro: Alert, awake, oriented, had episode of agitation and seizure like activity as per at home prior to cardiac arrest. Stable now, suspect sec to hypoxia and hypercapnia. 2. CVS: S/p cardiac arrest at home, hemodynamically stable currently. A.fib, CHF , c/w metoprolol 3. Resp: S/p extubation this am, on 2L O2, not in distress, will c/w BiPAP at night and prn for SOB during daytime, c/w nebs, pul toliet, has thick secretions , will hold off on thoracentesis for locualted rt effusion as he has h/o recurrent loculated effusions on rt side which have resolved without intervention. Effusion nto affecting O2 status 4. ID: On empiric therapy for HCAP. on Zosyn and vanco as per levels. Leucocytosis +, lactic acid normalized 5. Renal: No electrolyte abnormalities, good UO, will maintain negative fluid balance sec to h/o CHF 6. Haem: Anemia, stable. Leucocytosis, will f/u trend 7. Endo: On solumedrol for possible CHF exacerbation, will change to 60mg Po and taper 8. Musculosketal: Chronic edema of upper and LE, good peripheral pulses, will obtain dopplers of UE and LE, Rt LE is negative 9. GI: Will start feeds once passes bed side eval and advance as tolerated 10. Psychosocial: H/o depression, at bedside, updated IV access: PICC line placed 06/28/17 Critical Care Time: 40 min
[2017-06-29] MEDS ORDERED: Furosemide IV* 10 MG/ML VIAL (40 MG) IV SLOW PU ONE (17:10)
[2017-06-29] MEDS: Warfarin TAB(*) 4 MG NG TUBE SCH (17:13)
--- NOTE | 2017-06-29 17:34 | RAD ---
INDICATION: Pain and swelling. COMPARISON: None TECHNIQUE: Duplex interrogation of the left upperextremity was performed. FINDINGS: Deep veins: The visualized jugular, visualized subclavian, axillary, brachial, radial, and ulnar veins patent. There is normal compressibility, augmentation, and phasic flow. Superficial veins: There are no findings of superficial thrombophlebitis. The the basilic vein is patent. The cephalic vein is not identified. There are some limitations due to the presence of a hepatic catheter and the associated bandage. Soft tissues:There is diffuse soft tissue edema. IMPRESSION: DIFFUSE SOFT TISSUE EDEMA. NO EVIDENCE OF DEEP VENOUS THROMBOSIS.
--- NOTE | 2017-06-29 17:34 | RAD ---
INDICATION: Pain and swelling. COMPARISON: None TECHNIQUE: Duplex interrogation of the left lowerextremity was performed. FINDINGS: Deep veins: The common femoral, great saphenous, profunda femoris, proximal, mid, and distal deep femoral, popliteal, posterior tibial, and peroneal veins are patent. There is normal compressibility, augmentation, and phasic flow. Superficial veins: There are no findings of superficial thrombophlebitis. Popliteal fossa:There is no evidence of a popliteal cyst. Soft tissues: There is diffuse soft tissue edema. IMPRESSION: DIFFUSE SOFT TISSUE EDEMA. NO EVIDENCE OF DEEP VENOUS THROMBOSIS.
[2017-06-30] MEDS: Vancomycin(*) 750 MG in NS 0.9% 250 ML* 250 ML IVPB SCH ×3 (02:34→17:42)
[2017-06-30] MEDS: Metoprolol Tartrate TAB* 25 MG PO SCH ×4 (05:02→21:59)
[2017-06-30] MEDS: ZOSYN 3.375 GM Q8H per EXTENDED INFUSION IVPB SCH ×6 (05:02→21:59)
--- NOTE | 2017-06-30 08:41 | PN ---
Date of Service: 06/30/17 - [facility] progress note Critical Care Services: Pt seen and examined at bedside. No acute events o/n. Pt is alert, awake, reports feeling better, expresses desire to get out of bed and ambulate with assistance. Swelling of extremities improved with Lasix. Vital Signs: Temp Pulse Resp BP SpO2 FiO2 98.8 F 107 15 141/80 100 35 06/30/17 06:00 06/30/17 06:00 06/30/17 06:00 06/30/17 06:00 06/30/17 06:00 06/29 13:22 Physical Exam: Gen: Pt in NAD, alert, awake HEENT: PERRLA, no JVD, no accessory muscle usage Lungs:Diminished a/e b/l at bases, no wheeze Cardiac: S1, S2+, regular Abdomen: Soft, BS+ Extremities: Improvement in edema of UE and LE, had IV infiltrated in arm while administering contrast, tingling is improved, pulses palpable and brisk Neuro: Alert, awake, oriented, no focal defecits Skin: Chronic changes, bruises from fall at home Fluid Balance (Past 24 Hours): I= 1652 O= 3750 Net -2098 Intake & Output 06/28/17 06/29/17 06/30/17 07/01/17 06:59 06:59 06:59 06:59 Intake Total 1821.5 1465 1652 Output Total 1225 1400 3750 Balance 596.5 65 -2098 Weight 173 lb 15.115 oz 179 lb 0.246 oz 165 lb 12.602 oz Intake: IV Fluids 950 647 830 ABX - VANCOMYCIN 505 772 ABX - ZOSYN 453 112 NS (0.9%) 497 30 58 IVPB 646 385 344 ABX - VANCOMYCIN 546 385 344 ABX - ZOSYN 100 Medicated IV 225.5 303 78 CC - Propofol/Diprivan 225.5 303 78 Oral 300 NG Tube Irrigate Amount 130 100 Output: Hardy 1225 1400 3750 Other: Date of Last Bowel 06/29/17 06/30/17 Movement # Bowel Movements 1 1 Estimated Stool Amount Large Small Labs: Laboratory Results - last 24 hr 06/29/17 06/29/17 06/29/17 11:10 12:00 12:00 WBC RBC Hgb Hct MCV MCH MCHC RDW Plt Count MPV Patient Temperature Not Reportable ABG pH 7.42 ABG pH (Temp Correct) Not Reportable ABG pCO2 62 H ABG pCO2 (Temp Corrct Not Reportable ABG pO2 111 H ABG pO2 (Temp Correct Not Reportable ABG HCO3 35.1 H ABG O2 Saturation 98.9 H ABG Base Excess 13.1 H Respiration Rate Not Reportable Ventilator Type Not Reportable Vent Mode pcv FiO2 35 Inspiratory Time Not Reportable PEEP 5 Pressure Support Not Reportable Pressure Control 20 EPAP Not Reportable IPAP Not Reportable BiPAP Not Reportable Sodium 141 Potassium 4.2 Chloride 104 Carbon Dioxide 38 H BUN 32 H Creatinine 0.56 L Est GFR ( Amer) 183.4 Est GFR (Non-Af Amer) 142.6 BUN/Creatinine Ratio 57.1 H Glucose 111 H Lactic Acid Calcium 7.8 L Ammonia 56 H 06/29/17 06/29/17 12:00 12:00 WBC 15.4 H RBC 4.46 Hgb 12.5 L Hct 39 L MCV 87 MCH 28 MCHC 32 RDW 15 Plt Count 201 MPV 8 Patient Temperature ABG pH ABG pH (Temp Correct) ABG pCO2 ABG pCO2 (Temp Corrct ABG pO2 ABG pO2 (Temp Correct ABG HCO3 ABG O2 Saturation ABG Base Excess Respiration Rate Ventilator Type Vent Mode FiO2 Inspiratory Time PEEP Pressure Support Pressure Control EPAP IPAP BiPAP Sodium Potassium Chloride Carbon Dioxide BUN Creatinine Est GFR ( Amer) Est GFR (Non-Af Amer) BUN/Creatinine Ratio Glucose Lactic Acid 0.9 Calcium Ammonia Nutrition: Cardiac diet Impression: 76 y o f with 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 Acute on chronic hypoxic and hypercapnic resp failure s/p intubation 06/26/17 , extubated 06/29/17, minimal O2 requirement 2. COPD, advanced on home O2 and NIPPV, not in acute exacerbation 3. Sepsis sec to PNA, improving 4. Loculated rt pleural effusion, no intervention needed 5. Anemia of chronic disease, stable 6. Malnutrition, nutrition consult pending 7. A.fib, rate controlled 8. CHF with acute exacerbation, responding to diuresis Plan: 1. Neuro: Alert, awake, oriented, had episode of agitation and seizure like activity as per at home prior to cardiac arrest. At baseline now, no focal defecits, suspect sec to hypoxia and hypercapnia. 2. CVS: S/p cardiac arrest at home, hemodynamically stable currently with slightly elevated BP. A.fib, CHF, c/w metoprolol, diltiazem. Will reassess need for increase in BP meds 3. Resp: S/p extubation this am, on 2L O2, not in distress, will c/w BiPAP at night and prn for SOB during daytime, c/w nebs, pul toliet, has thick secretions , will hold off on thoracentesis for locualted rt effusion as he has h/o recurrent loculated effusions on rt side which have resolved without intervention. Effusion nto affecting O2 status. Received Lasix for fluid overload yesterday with decrease in edema 4. ID: On empiric therapy for HCAP. on Zosyn and vanco (day#5/7). Leucocytosis +, lactic acid normalized 5. Renal: No electrolyte abnormalities, good UO, cloudy urine, will send UA and cx. will maintain negative fluid balance sec to h/o CHF. IVF d/nicole 6. Haem: Anemia, stable. Leucocytosis, will f/u trend today 7. Endo: Prednisone 40mg, will continue to taper. 8. Musculosketal: Chronic edema of upper and LE, good peripheral pulses, dopplers of UE and LE, Rt LE negative. Has hypoalbuminemia resulting in anasarca 9. GI: Tolerating po diet well 10. Psychosocial: H/o depression, stable, at bedside, updated Pt will benefit from subacute rehab when stable IV access: PICC line placed 06/28/17 for fluids, abx administration, given poor peripheral access due to anasarca CCM time 30 min
[2017-06-30] MEDS: Famotidine TAB* 20 MG PO SCH ×2 (10:06→21:59)
[2017-06-30] MEDS: Sertraline* 25 MG TAB NG TUBE SCH (10:07)
[2017-06-30] MEDS: Diltiazem CD CAP* 240 MG PO SCH (10:07)
[2017-06-30] MEDS: predniSONE TAB* 20 MG PO SCH (10:07)
[2017-06-30] MEDS: Aspirin Low Dose CHEW TAB* 81 MG NG TUBE SCH (10:07)
[2017-06-30 10:27] LABS: EGFR Non-African American 122.2 (>60)
[2017-06-30] MEDS ORDERED: Vancomycin Trough Check NOTE FOLLOW UP ONE (10:30)
[2017-06-30] MEDS: Warfarin TAB(*) 4 MG NG TUBE SCH (17:41)
[2017-07-01] MEDS: Vancomycin(*) 750 MG in NS 0.9% 250 ML* 250 ML IVPB SCH ×3 (02:49→18:21)
[2017-07-01] MEDS: ZOSYN 3.375 GM Q8H per EXTENDED INFUSION IVPB SCH ×6 (05:03→21:36)
[2017-07-01] MEDS: Metoprolol Tartrate TAB* 25 MG PO SCH ×4 (05:03→22:59)
[2017-07-01 05:52] LABS: INR 3.85 (0.77-1.02)
[2017-07-01] MEDS: Famotidine TAB* 20 MG PO SCH ×2 (09:28→21:36)
[2017-07-01] MEDS: Diltiazem CD CAP* 240 MG PO SCH (09:28)
[2017-07-01] MEDS: Aspirin Low Dose CHEW TAB* 81 MG NG TUBE SCH (09:28)
[2017-07-01] MEDS: Sertraline* 25 MG TAB NG TUBE SCH (09:29)
[2017-07-01] MEDS: predniSONE TAB* 20 MG PO SCH (09:29)
--- NOTE | 2017-07-01 11:04 | PN ---
Progress Note - Progress Note Date of Service: 07/01/17 - [facility] f/u note Note: Pt seen and examined at bedside. No new complaints. Reports feeling tired. Used CPAP last night, mask was putting pressure on nose Active Medications Generic Name Dose Route Start Last Admin Trade Name Freq PRN Reason Stop Dose Admin Al Hydrox/Mg Hydrox/Simethicone 30 ml 06/27/17 01:15 Maalox Plus* NG TUBE Q6H PRN INDIGESTION Albuterol 2.5 mg 06/26/17 22:50 Ventolin 2.5 Mg/3 Ml Neb.Vicenta* INH Q2H PRN SOB/WHEEZING Albuterol/Ipratropium 1 neb 06/26/17 22:50 06/29/17 13:22 Duoneb (Albuterol 2.5 Mg/Ipratropium 0.5 Mg) INH 1 neb Q4H PRN Administration SOB/WHEEZING Aspirin 81 mg 06/27/17 09:00 07/01/17 09:28 Aspirin Low Dose Tab* NG TUBE 81 mg DAILY EDWARD Administration Diltiazem HCl 240 mg 06/30/17 09:00 07/01/17 09:28 Cardizem Cd Cap* PO 240 mg QAM EDWARD Administration Docusate Sodium 100 mg 06/27/17 01:42 Colace Liq* PO BID PRN CONSTIPATION Famotidine 20 mg 06/28/17 21:00 07/01/17 09:28 Pepcid Tab* PO 20 mg BID EDWARD Administration Heparin Sodium (Porcine) 1 - 3 ml 06/29/17 18:00 07/01/17 05:03 Heparin Flush Picc/Ml/Cvc(*) FLUSH 1 ml 0600,1800 EDWARD Administration Protocol Piperacillin Sod/Tazobactam 100 mls @ 25 mls/hr 06/27/17 05:30 07/01/17 05:03 Sod 3.375 gm/ Sodium Chloride IVPB 25 mls/hr Q8H EDWARD Administration Vancomycin HCl 750 mg/ Sodium 250 mls @ 166.667 mls/hr 06/28/17 10:30 10:36 Chloride IVPB 166.667 mls/hr 0230,1030,1830 EDWARD Administration Metoprolol Tartrate 25 mg 06/30/17 17:00 07/01/17 05:03 Lopressor Tab* PO 25 mg Q6H EDWARD Administration Ondansetron HCl 4 mg 06/26/17 22:19 Zofran Inj* IV Q4H PRN NAUSEA/VOMITING Pharmacy Consult 1 note 06/26/17 23:00 Zosyn Per Pharmacy* FOLLOW UP .ZOSYN PER PHARMACY [facility] Pharmacy Consult 1 note 06/27/17 00:39 Vancomycin Per Pharmacy* FOLLOW UP . PRN PER PROTOCOL Pharmacy Profile Note 1 note 07/02/17 10:00 Vancomycin Trough Check FOLLOW UP 07/02/17 10:01 1000 ONE Prednisone 40 mg 06/30/17 09:00 07/01/17 09:29 Deltasone Tab* PO 40 mg DAILY EDWARD Administration Senna 1 tab 06/27/17 01:16 Senokot Tab* NG TUBE BID PRN CONSTIPATION Sertraline HCl 25 mg 06/27/17 09:00 07/01/17 09:29 Zoloft* NG TUBE 25 mg DAILY EDWARD Administration Warfarin Sodium 4 mg 06/27/17 17:00 06/30/17 17:41 Coumadin Tab(*) NG TUBE 4 mg DAILY@1700 EDWARD Administration Protocol Vital Signs Temp Pulse Resp BP Pulse Ox 98.6 F 78 16 155/72 100 07/01/17 06:01 07/01/17 06:00 07/01/17 06:01 07/01/17 06:01 07/01/17 06:00 Gen: Pt in NAD, alert, awake, sitting in chair HEENT: PERRLA, no JVD, no accessory muscle usage Lungs:Diminished a/e b/l at bases, no wheeze Cardiac: S1, S2+, regular Abdomen: Soft, BS+ Extremities: Improvement in edema of UE and LE, pulses palpable and brisk Neuro: Alert, awake, oriented, no focal defecits, decreased strength in extremities Skin: Chronic changes, bruises from fall at home Impression/Recommendations: 76 y o f with severe COPD on home O2, chronic resp failure on BiPAP at night, CHF, A.fib, loculated rt effusion, recent admission for PNA, hypoxic and acute on chronic hypercapnic resp failure, d/nicole home 1 day prior to current admission , had cardiac arrest, CPR by , questionable seizure activity, intubated for acute hypoxic and hypercapnic resp failure s/p intubation 06/26/17, extubated , minimal O2 requirement, COPD, advanced on home O2 and NIPPV, not in acute exacerbation, PNA on abx,loculated rt pleural effusion, no intervention needed, A.fib, rate controlled, CHF with acute exacerbation, responding to diuresis Improved BP control with increase in beta paulino, CHF improved with diuresis, c /w metoprolol, diltiazem. c/w 2L O2, not in distress, has secretions mostly at night, will c/w BiPAP at night and prn for SOB during daytime, c/w nebs, pul toliet - On empiric therapy for HCAP, c/w Zosyn and vanco (day#6/7). Leucocytosis +, lactic acid normalized - good UO, cloudy urine, UA and cx. - Prednisone will decrease to 30mg, will continue to taper. - Chronic edema of upper and LE, good peripheral pulses, dopplers of UE and LE, Rt LE negative. Has hypoalbuminemia resulting in anasarca. Protein supplementation PT working with him today Pt will benefit from subacute rehab when stable IV access: PICC line placed 06/28/17 for fluids, abx administration, given poor peripheral access due to anasarca For transfer to regualr floor if stable in am Discussed plan of care with pt and his
[2017-07-01] MEDS: Albuterol/Ipratropium NEB.SOL* Albuterol 2.5 MG/Ipratropium 0.5 MG 3 ML INH PRN (12:01)
[2017-07-01] MEDS ORDERED: Spiriva Inhaler DEVICE* 1 EACH DEVICE SCH (13:00)
[2017-07-01] MEDS ORDERED: Spiriva Inhaler DEVICE* 1 EACH DEVICE INH SCH (13:00)
[2017-07-01] MEDS ORDERED: Furosemide IV* 10 MG/ML 2 ML VIAL (20 MG) IV SLOW PU ONE (15:05)
[2017-07-01] MEDS: Mometasone/Formoter 200/5 MDI INH SCH (20:29)
[2017-07-02] MEDS: Vancomycin(*) 750 MG in NS 0.9% 250 ML* 250 ML IVPB SCH ×3 (02:19→17:47)
[2017-07-02] MEDS: Metoprolol Tartrate TAB* 25 MG PO SCH ×4 (05:08→17:47)
[2017-07-02] MEDS: ZOSYN 3.375 GM Q8H per EXTENDED INFUSION IVPB SCH ×6 (05:08→21:53)
[2017-07-02 05:44] LABS: INR 2.37 (0.77-1.02)
[2017-07-02 05:55] LABS: EGFR Non-African American 145.6 (>60)
[2017-07-02] MEDS: Tiotropium CAP.INH* CAP.INH/18 MCG (USE ORDER SET !) INH SCH (07:27)
[2017-07-02] MEDS: Spiriva Inhaler DEVICE* 1 EACH DEVICE INH ONE ×2 (07:28→13:30)
[2017-07-02] MEDS: Mometasone/Formoter 200/5 MDI INH SCH ×2 (07:28→20:34)
[2017-07-02] MEDS: Famotidine TAB* 20 MG PO SCH ×2 (08:58→20:38)
[2017-07-02] MEDS: Aspirin Low Dose CHEW TAB* 81 MG NG TUBE SCH (08:58)
[2017-07-02] MEDS: Sertraline* 25 MG TAB NG TUBE SCH (08:58)
[2017-07-02] MEDS: Diltiazem CD CAP* 240 MG PO SCH (08:58)
[2017-07-02] MEDS: predniSONE TAB* 10 MG PO SCH (08:58)
--- NOTE | 2017-07-02 08:59 | PN ---
Progress Note - Progress Note Date of Service: 07/02/17 Note: Progress Note Critical Care 24 hour events/significant events: -no events overnight; in chair now, no distress. feels good. no sob/cp/n/v/ dizziness. cough+, minimal sputum being brought up Tele: afib, rate controlled Vitals: Vital Signs Temp 98.8 F 07/02/17 07:46 Pulse 77 07/02/17 07:00 Resp 14 07/02/17 07:00 BP 141/71 07/02/17 07:00 Pulse Ox 100 07/02/17 07:00 Intake & Output 07/01/17 07/02/17 07/02/17 18:59 06:59 18:59 Intake Total 930 663 Output Total 1950 4000 Balance -1020 -3337 Weight 164 lb 10.965 oz Intake: IV Fluids 30 38 NS (0.9%) 30 38 IVPB 420 625 ABX - VANCOMYCIN 375 ABX - ZOSYN 250 NS (0.9%) 420 Oral 480 Output: Webb 1950 4000 Other: Estimated Stool Amount Small Large O2/Vent: 2L NC Infusions: heplock Medications: Al Hydrox/Mg Hydrox/Simethicone (Maalox Plus*) 30 ml NG TUBE Q6H PRN PRN Reason: INDIGESTION Albuterol (Ventolin 2.5 Mg/3 Ml Neb.Vicenta*) 2.5 mg INH Q2H PRN PRN Reason: SOB/WHEEZING Aspirin (Aspirin Low Dose Tab*) 81 mg NG TUBE DAILY [facility] Last Admin: 07/01/17 09:28 Dose: 81 mg Device (Tiotropium Inhaler Device*) 1 each INH 0900 ONE Stop: 07/02/17 13:01 Last Admin: 07/02/17 07:28 Dose: 1 each Diltiazem HCl (Cardizem Cd Cap*) 240 mg PO QAM [facility] Last Admin: 07/01/17 09:28 Dose: 240 mg Docusate Sodium (Colace Liq*) 100 mg PO BID PRN PRN Reason: CONSTIPATION Famotidine (Pepcid Tab*) 20 mg PO BID [facility] Last Admin: 07/01/17 21:36 Dose: 20 mg Heparin Sodium (Porcine) (Heparin Flush Picc/Ml/Cvc(*)) 1 - 3 ml FLUSH 0600, 1800 [facility] PRN Reason: Protocol Last Admin: 07/02/17 05:08 Dose: 1 ml Piperacillin Sod/Tazobactam (Sod 3.375 gm/ Sodium Chloride) 100 mls @ 25 mls/ hr IVPB Q8H [facility] Last Admin: 07/02/17 05:08 Dose: 25 mls/hr Vancomycin HCl 750 mg/ Sodium (Chloride) 250 mls @ 166.667 mls/hr IVPB 0230, 1030,1830 [facility] Last Admin: 07/02/17 02:19 Dose: 166.667 mls/hr Metoprolol Tartrate (Lopressor Tab*) 25 mg PO Q6H [facility] Last Admin: 07/02/17 05:08 Dose: 25 mg Mometasone Furoate/Formoterol Fumar (Dulera 200/5 Mdi*) 2 puff INH BID [facility] Last Admin: 07/02/17 07:28 Dose: 2 puff Ondansetron HCl (Zofran Inj*) 4 mg IV Q4H PRN PRN Reason: NAUSEA/VOMITING Pharmacy Consult (Zosyn Per Pharmacy*) 1 note FOLLOW UP .ZOSYN PER PHARMACY [facility] Pharmacy Consult (Vancomycin Per Pharmacy*) 1 note FOLLOW UP . PRN PRN Reason: PER PROTOCOL Pharmacy Profile Note (Vancomycin Trough Check) 1 note FOLLOW UP 1000 ONE Stop: 07/02/17 10:01 Prednisone (Deltasone Tab*) 30 mg PO DAILY [facility] Senna (Senokot Tab*) 1 tab NG TUBE BID PRN PRN Reason: CONSTIPATION Sertraline HCl (Zoloft*) 25 mg NG TUBE DAILY [facility] Last Admin: 07/01/17 09:29 Dose: 25 mg Tiotropium [place] (Spiriva Cap.Inh*) 1 cap INH DAILY [facility] Last Admin: 07/02/17 07:27 Dose: 1 cap Physical Exam: General: awake, alert, no distress, no diaphoresis Head: normocephalic, atraumatic HEENT: no pallor, no icterus, moist mucous membranes Neck: soft, supple, no jvd, no stridor CVS: normal rate, irregular, no murmur Resp: bilateral air entry, no rhales, no wheeze, no rhonchi, no acc muscle use Abdomen: soft, nontender, nondistended, bowel sounds present Ext: pulses+, warm, edema2+ B/L LE Skin: intact, no breakdown, no dryness Neuro: awake, alert, orientedx3, moving all extremities, no gross focal deficit Labs: Laboratory Results - last 24 hr 07/02/17 07/02/17 05:15 05:15 INR (Anticoag Therapy) 2.37 H Sodium 142 Potassium 3.7 Chloride 99 L Carbon Dioxide 44 H* Anion Gap Not Reportable BUN 24 Creatinine 0.55 L Est GFR ( Amer) 187.3 Est GFR (Non-Af Amer) 145.6 BUN/Creatinine Ratio 43.6 H Glucose 96 Calcium 7.7 L Phosphorus 1.5 L Magnesium 1.8 L Imaging: cxr 06/29 - improving left and right infiltrates; right effusion+ and decreasing ; RLL infiltrate+ and improving Assessment: 76y M pmhx of COPD, chronic hypoxia on home O2, Chronic hypercapnea , CHF, Afib on warfarin, dvt/ sp IVC filter, HTN, former smoker; recent hospitalization and discharge for pneumonia and abdominal wound. Admitted for cardiac arrest, s/p CPR at home, ROSC upon arrival. Possible seizure at home prior to arrest. -s/p Cardiac arrest 06/15 to respiratory arrest -Severe COPD -acute on Chronic Hypoxic and Hypercapneic respiratory failure, extubated 06/29 -Sepsis / to pneumonia -Afib -Volume overload -Bilateral pleural effusions, loculated right Plan: Neuro- stable CVS- hemodyn stable. rate controlled afib, cont cardizem/metoprolol. some hematuria, so hold warfarin tonight and restart tomorrow 4mg PO. Target INR 2-3 otherwise. Edema+, lasix 20mg iv x1 today, then 20mg po daily Resp- on 2L, no distress. keep sats 90-92%. cxr 06/29 improving. on prednisone 30mg po daily, taper over 7 days. IV abx day 11/17 for HCAP. send sputum culture if any sputum produced, though likely to be negative on abx. cont bronchodilators. ID- afebrile. wbc fluctuates. likely reactive from steroids now. IV zosyn/vanco (day 7). blood cx neg. sputum culture if any. GI- cardiac diet Renal- Cr okay. K okay. Edema+, repeat lasix 20mg iv x1 today. start lasix 20mg po daily while in hospital till edema improved. webb in place, can d/c today. mild hematuria, pinkish urine. Heme- hg stable. plt okay. on warfarin, target inr 2-3. hold today to let hematuria improve further, dose warfarin 4mg po qHS starting tomorrow. Endo- fingersticks as needed Musculsk- pt/ot, oob to chair and ambulate as tolerated. Wounds- none Nutrition- cardiac diet DVT prophylaxis: warfarin GI prophylaxis: - Central Line: - Arterial Line: - Webb Cathetor: yes Disposition: stable for transfer to medical floor Code Status: full code Nic Dow MD Mental Hygiene Consultant (Electronically Signed)
[2017-07-02] MEDS ORDERED: Furosemide IV* 10 MG/ML 2 ML VIAL (20 MG) IV SLOW PU ONE (09:04)
[2017-07-02] MEDS ORDERED: Vancomycin Trough Check NOTE FOLLOW UP ONE (10:00)
[2017-07-02] MEDS: Chlorhexidine MOUTHWASH 0.12%* 15 ML UDC TOPICAL SCH (12:04)
[2017-07-02] MEDS: Warfarin TAB(*) 4 MG NG TUBE SCH (12:05)
[2017-07-02] MEDS ORDERED: Magnesium Sulfate 2 GM IV* 2 GM/50 ML BAG IVPB ONE (18:36)
[2017-07-03] MEDS: Metoprolol Tartrate TAB* 25 MG PO SCH ×5 (00:08→23:38)
[2017-07-03] MEDS: Vancomycin(*) 750 MG in NS 0.9% 250 ML* 250 ML IVPB SCH ×3 (02:09→19:12)
[2017-07-03] MEDS: ZOSYN 3.375 GM Q8H per EXTENDED INFUSION IVPB SCH ×6 (05:13→21:05)
[2017-07-03 07:26] LABS: Hematocrit 38 % (42-52); Hemoglobin 12.3 g/dl (14.0-18.0); Mean Corpuscular HGB Conc 32 g/dl (31-36); Mean Corpuscular Hemoglobin 28 pg (27-31); Mean Corpuscular Volume 86 fL (80-94); Mean Platelet Volume 8 um3 (7.4-10.4); Platelet Count 198 10^3/ul (150-450); Red Blood Count 4.39 10^6/ul (4.0-5.4); Red Cell Distribution Width 15 % (10.5-15); White Blood Count 17.7 10^3/ul (3.5-10.8)
[2017-07-03 07:37] LABS: INR 1.25 (0.77-1.02)
[2017-07-03 07:41] LABS: EGFR Non-African American 124.5 (>60)
[2017-07-03] MEDS ORDERED: Al Hydrox/Mg Hydrox/Simet LIQ* 30 ML UDC PO PRN (08:02)
[2017-07-03] MEDS: Diltiazem CD CAP* 240 MG PO SCH (08:16)
[2017-07-03] MEDS: Furosemide TAB* 20 MG PO SCH (08:16)
[2017-07-03] MEDS: Famotidine TAB* 20 MG PO SCH ×2 (08:16→21:03)
[2017-07-03] MEDS: Sertraline* 25 MG TAB NG TUBE SCH (08:17)
[2017-07-03] MEDS: predniSONE TAB* 10 MG PO SCH (08:17)
[2017-07-03] MEDS: Aspirin Low Dose CHEW TAB* 81 MG NG TUBE SCH (08:17)
[2017-07-03] MEDS: Sertraline* 25 MG TAB PO SCH (08:20)
[2017-07-03] MEDS: Aspirin Low Dose CHEW TAB* 81 MG PO SCH (08:20)
[2017-07-03] MEDS: Mometasone/Formoter 200/5 MDI INH SCH ×2 (08:33→20:12)
[2017-07-03] MEDS: Tiotropium CAP.INH* CAP.INH/18 MCG (USE ORDER SET !) INH SCH (08:33)
--- NOTE | 2017-07-03 15:44 | PN ---
Subjective Date of Service: 07/03/17 Interval History: transferred from the ICU to the floor yesterday. feels good today, sitting up in the chair. says he walked a lap around the floor and felt a little winded when he returned to his room. eating and drinking well. no pain. Family History: Unchanged from Admission Social History: Unchanged from Admission Past Medical History: Unchanged from Admission Objective Active Medications: Al Hydrox/Mg Hydrox/Simethicone (Maalox Plus*) 30 ml PO Q6H PRN PRN Reason: INDIGESTION Albuterol (Ventolin 2.5 Mg/3 Ml Neb.Vicenta*) 2.5 mg INH Q2H PRN PRN Reason: SOB/WHEEZING Aspirin (Aspirin Low Dose Tab*) 81 mg PO DAILY [facility] Last Admin: 07/03/17 08:20 Dose: 81 mg Diltiazem HCl (Cardizem Cd Cap*) 240 mg PO QAM [facility] Last Admin: 07/03/17 08:16 Dose: 240 mg Docusate Sodium (Colace Liq*) 100 mg PO BID PRN PRN Reason: CONSTIPATION Famotidine (Pepcid Tab*) 20 mg PO BID [facility] Last Admin: 07/03/17 08:16 Dose: 20 mg Furosemide (Lasix Tab*) 20 mg PO DAILY [facility] Last Admin: 07/03/17 08:16 Dose: 20 mg Heparin Sodium (Porcine) (Heparin Flush Picc/Ml/Cvc(*)) 1 - 3 ml FLUSH 0600, 1800 [facility] PRN Reason: Protocol Last Admin: 07/03/17 05:14 Dose: 1 ml Piperacillin Sod/Tazobactam (Sod 3.375 gm/ Sodium Chloride) 100 mls @ 25 mls/ hr IVPB Q8H [facility] Last Admin: 07/03/17 13:44 Dose: 25 mls/hr Vancomycin HCl 750 mg/ Sodium (Chloride) 250 mls @ 166.667 mls/hr IVPB 0230, 1030,1830 [facility] Last Admin: 07/03/17 10:06 Dose: 166.667 mls/hr Metoprolol Tartrate (Lopressor Tab*) 25 mg PO Q6H [facility] Last Admin: 07/03/17 11:53 Dose: 25 mg Mometasone Furoate/Formoterol Fumar (Dulera 200/5 Mdi*) 2 puff INH BID [facility] Last Admin: 07/03/17 08:33 Dose: 2 puff Ondansetron HCl (Zofran Inj*) 4 mg IV Q4H PRN PRN Reason: NAUSEA/VOMITING Pharmacy Consult (Zosyn Per Pharmacy*) 1 note FOLLOW UP .ZOSYN PER PHARMACY [facility] Pharmacy Consult (Vancomycin Per Pharmacy*) 1 note FOLLOW UP . PRN PRN Reason: PER PROTOCOL Prednisone (Deltasone Tab*) 30 mg PO DAILY [facility] Last Admin: 07/03/17 08:17 Dose: 30 mg Senna (Senokot Tab*) 1 tab NG TUBE BID PRN PRN Reason: CONSTIPATION Sertraline HCl (Zoloft*) 25 mg PO DAILY [facility] Last Admin: 07/03/17 08:20 Dose: 25 mg Tiotropium [place] (Spiriva Cap.Inh*) 1 cap INH DAILY [facility] Last Admin: 07/03/17 08:33 Dose: 1 cap Vital Signs - 8 hr 07/03/17 07/03/17 07/03/17 07:39 08:11 08:36 Temperature 97.5 F Pulse Rate 69 69 Respiratory 20 20 14 Rate Blood Pressure 115/52 (mmHg) O2 Sat by Pulse 99 97 Oximetry 07/03/17 07/03/17 08:37 11:23 Temperature 97.6 F Pulse Rate 69 85 Respiratory 14 20 Rate Blood Pressure 136/52 (mmHg) O2 Sat by Pulse 97 96 Oximetry Oxygen Devices in Use Now: Nasal Cannula Appearance: alert, sitting up in bed in no distress, pleasant Eyes: No Scleral Icterus Ears/Nose/Mouth/Throat: NL Teeth, Lips, Gums, - - abrasion on bridge of nose and forehead Neck: NL Appearance and Movements; NL JVP, Trachea Midline Respiratory: Symmetrical Chest Expansion and Respiratory Effort, - - distant breath sounds, decreased breath sounds at bases Cardiovascular: NL Sounds; No Murmurs; No JVD, - - irregular rhythm Abdominal: NL Sounds; No Tenderness; No Distention, - - superficial abdominal wound with some protruding mesh; no erythema or pus Lymphatic: No Cervical Adenopathy Extremities: - - 2+ pitting edema Skin: - - venous stasis changes Neurological: Alert and Oriented x 3 Result Diagrams: 07/03/17 07:00 07/03/17 07:00 Microbiology and Other Data: Microbiology 07/03/17 06:04 Gram Stain - Final Sputum Assess/Plan/Problems-Billing Assessment: 78 yo man with history of COPD, diastolic heart failure, and chronic hypoxic and hypercapneic respiratory failure admitted after a concern for cardiac arrest at home, (though troponin peaked at 0.04 and LFTs were in the 100s), intubated on arrival to the ED. In the ICU, he has been diuresed, treated for a copd exacerbation, and treated with broad spectrum antibiotics for presumed HCAP. - Patient Problems (1) Chronic diastolic heart failure Current Visit: Yes Status: Acute Code(s): I50.32 - CHRONIC DIASTOLIC ( CONGESTIVE) HEART FAILURE SNOMED Code(s): 692631371 Comment: clinically, he is not in heart failure at this time, however he did diurese in the ICU, so it is possible he was in decompensated heart failure at admission due to recent admission for CAP/sepsis, when he did receive IVF resuscitation. his last TTE was in 2014; will repeat now. (2) Acute and chronic respiratory failure with hypoxia Current Visit: Yes Status: Acute Code(s): J96.21 - ACUTE AND CHRONIC RESPIRATORY FAILURE WITH HYPOXIA SNOMED Code(s): 38856642 Comment: He required intubation at admission (though it appears this was more likely related to hypercapnia than hypoxia) and is back to his home o2 requirement of 2-3 L (3) Acute hypercapnic respiratory failure Current Visit: Yes Status: Acute Code(s): J96.02 - ACUTE RESPIRATORY FAILURE WITH HYPERCAPNIA SNOMED Code(s): 490744748 Comment: I suspect this was the reason for his collapse at home; though he says he does have his bipap at home and was using it without difficulty. continue nocturnal bipap. continue prednisone for copd exacerbation, as well as round the clock nebs. (4) Pleural effusion Current Visit: Yes Status: Acute Code(s): J90 - PLEURAL EFFUSION, NOT ELSEWHERE CLASSIFIED SNOMED Code(s): 08506070 Comment: This has worsened since his last admission. It is unclear whether this is parapneumonic, but a thoracentesis or chest tube may be helpful, since it is loculated. Will discuss this with surgery. Unfortunately the culture will likely be negative since he has been on antibiotics for so long, but he may have improved expansion and aeration. (5) Tobacco abuse Current Visit: Yes Status: Acute Code(s): Z72.0 - TOBACCO USE SNOMED Code( s): 556675069 Comment: I have discussed this with him.
[2017-07-04] MEDS: Vancomycin(*) 750 MG in NS 0.9% 250 ML* 250 ML IVPB SCH ×3 (02:18→20:21)
[2017-07-04 04:22] LABS: Hematocrit 37 % (42-52); Hemoglobin 12.1 g/dl (14.0-18.0); Mean Corpuscular HGB Conc 33 g/dl (31-36); Mean Corpuscular Hemoglobin 28 pg (27-31); Mean Corpuscular Volume 86 fL (80-94); Mean Platelet Volume 8 um3 (7.4-10.4); Platelet Count 206 10^3/ul (150-450); Red Blood Count 4.29 10^6/ul (4.0-5.4); Red Cell Distribution Width 15 % (10.5-15); White Blood Count 20.7 10^3/ul (3.5-10.8)
[2017-07-04 04:29] LABS: INR 1.05 (0.77-1.02)
[2017-07-04] MEDS: Metoprolol Tartrate TAB* 25 MG PO SCH ×4 (05:34→23:24)
[2017-07-04] MEDS: ZOSYN 3.375 GM Q8H per EXTENDED INFUSION IVPB SCH ×4 (05:36→14:12)
[2017-07-04] MEDS ORDERED: Perflutren Lipid Microsphere* 3 ML VIAL ONE (08:08)
--- NOTE | 2017-07-04 08:40 | PN ---
Subjective Date of Service: 07/04/17 Interval History: feels good today. has been working with PT and walking the hallways without difficulty. good appetite, good spirits. no pain. just had TTE some orthopnea. wearing bipap at night Family History: Unchanged from Admission Social History: Unchanged from Admission Past Medical History: Unchanged from Admission Objective Active Medications: Al Hydrox/Mg Hydrox/Simethicone (Maalox Plus*) 30 ml PO Q6H PRN PRN Reason: INDIGESTION Albuterol (Ventolin 2.5 Mg/3 Ml Neb.Vicenta*) 2.5 mg INH Q2H PRN PRN Reason: SOB/WHEEZING Aspirin (Aspirin Low Dose Tab*) 81 mg PO DAILY [facility] Last Admin: 07/03/17 08:20 Dose: 81 mg Diltiazem HCl (Cardizem Cd Cap*) 240 mg PO QAM [facility] Last Admin: 07/03/17 08:16 Dose: 240 mg Docusate Sodium (Colace Liq*) 100 mg PO BID PRN PRN Reason: CONSTIPATION Famotidine (Pepcid Tab*) 20 mg PO BID [facility] Last Admin: 07/03/17 21:03 Dose: 20 mg Furosemide (Lasix Tab*) 20 mg PO DAILY [facility] Last Admin: 07/03/17 08:16 Dose: 20 mg Heparin Sodium (Porcine) (Heparin Flush Picc/Ml/Cvc(*)) 1 - 3 ml FLUSH 0600, 1800 [facility] PRN Reason: Protocol Last Admin: 07/04/17 05:34 Dose: 1 ml Piperacillin Sod/Tazobactam (Sod 3.375 gm/ Sodium Chloride) 100 mls @ 25 mls/ hr IVPB Q8H [facility] Last Admin: 07/04/17 05:36 Dose: 25 mls/hr Vancomycin HCl 750 mg/ Sodium (Chloride) 250 mls @ 166.667 mls/hr IVPB 0230, 1030,1830 [facility] Last Admin: 07/04/17 02:18 Dose: 166.667 mls/hr Metoprolol Tartrate (Lopressor Tab*) 25 mg PO Q6H [facility] Last Admin: 07/04/17 05:34 Dose: 25 mg Mometasone Furoate/Formoterol Fumar (Dulera 200/5 Mdi*) 2 puff INH BID [facility] Last Admin: 07/03/17 20:12 Dose: 2 puff Ondansetron HCl (Zofran Inj*) 4 mg IV Q4H PRN PRN Reason: NAUSEA/VOMITING Pharmacy Consult (Zosyn Per Pharmacy*) 1 note FOLLOW UP .ZOSYN PER PHARMACY [facility] Pharmacy Consult (Vancomycin Per Pharmacy*) 1 note FOLLOW UP . PRN PRN Reason: PER PROTOCOL Prednisone (Deltasone Tab*) 30 mg PO DAILY [facility] Last Admin: 07/03/17 08:17 Dose: 30 mg Senna (Senokot Tab*) 1 tab NG TUBE BID PRN PRN Reason: CONSTIPATION Sertraline HCl (Zoloft*) 25 mg PO DAILY [facility] Last Admin: 07/03/17 08:20 Dose: 25 mg Tiotropium [place] (Spiriva Cap.Inh*) 1 cap INH DAILY [facility] Last Admin: 07/03/17 08:33 Dose: 1 cap Vital Signs - 8 hr 07/04/17 07/04/17 03:50 08:02 Temperature 97.3 F Pulse Rate 100 99 Respiratory 16 17 Rate Blood Pressure 154/64 (mmHg) O2 Sat by Pulse 93 93 Oximetry Oxygen Devices in Use Now: Nasal Cannula Appearance: alert, sitting up in bed comfortably, but does become short of breath when lying flat Eyes: No Scleral Icterus Ears/Nose/Mouth/Throat: NL Teeth, Lips, Gums, - - abrasion on forehead Neck: - - JVP ~12cm Respiratory: - - decreased breath sounds at b/l bases; prolonged expiratory phase and decreased aeration b/l Cardiovascular: - - irregularly irregular rhythm Abdominal: - - chronic appearing wound covers abdomen, no erythema or drainage, some mesh sticking out at the inferior borders on the right Lymphatic: No Cervical Adenopathy Extremities: - - +2 pitting edema Neurological: Alert and Oriented x 3 Result Diagrams: 07/04/17 04:15 07/04/17 04:15 Microbiology and Other Data: Microbiology 07/03/17 06:04 Gram Stain - Final Sputum Assess/Plan/Problems-Billing Assessment: 78 yo man with history of COPD, diastolic heart failure, and chronic hypoxic and hypercapneic respiratory failure admitted after a concern for cardiac arrest at home, (though troponin peaked at 0.04 and LFTs were in the 100s), intubated on arrival to the ED. In the ICU, he has been diuresed, treated for a copd exacerbation, and treated with broad spectrum antibiotics for presumed HCAP. - Patient Problems (1) Chronic diastolic heart failure Current Visit: Yes Status: Acute Code(s): I50.32 - CHRONIC DIASTOLIC ( CONGESTIVE) HEART FAILURE SNOMED Code(s): 765745194 Comment: clinically, he is not in heart failure at this time, however he did diurese in the ICU, so it is possible he was in decompensated heart failure at admission due to recent admission for CAP/sepsis, when he did receive IVF resuscitation. his last TTE was in 2014; will repeat now. consult surgery for diagnostic/therapeutic thoracentesis today--will be helpful to know if his effusions are from heart failure or are parapneumonic (2) Acute and chronic respiratory failure with hypoxia Current Visit: Yes Status: Acute Code(s): J96.21 - ACUTE AND CHRONIC RESPIRATORY FAILURE WITH HYPOXIA SNOMED Code(s): 27693967 Comment: Now resolved and back to his baseline O2 requirement of 2-3L He required intubation at admission (though it appears this was more likely related to hypercapnia than hypoxia) There was also some concern for HCAP at admission given his recent hospitalization, sputum cultures are pending (3) Acute hypercapnic respiratory failure Current Visit: Yes Status: Acute Code(s): J96.02 - ACUTE RESPIRATORY FAILURE WITH HYPERCAPNIA SNOMED Code(s): 935061339 Comment: I suspect this was the reason for his collapse at home; though he says he does have his bipap at home and was using it without difficulty. continue nocturnal bipap. continue prednisone for copd exacerbation, as well as round the clock nebs. (4) Pleural effusion Current Visit: Yes Status: Acute Code(s): J90 - PLEURAL EFFUSION, NOT ELSEWHERE CLASSIFIED SNOMED Code(s): 78562779 Comment: This has worsened since his last admission. It will be helpful to know whether this is parapneumonic or related to heart failure, but unfortunately the culture will likely be negative since he has been on antibiotics for so long, but he may have improved expansion and aeration. Consult surgery today for thoracentesis (5) Tobacco abuse Current Visit: Yes Status: Acute Code(s): Z72.0 - TOBACCO USE SNOMED Code( s): 819995764 Comment: I have discussed this with him. Not ready to quit. (6) Atrial fibrillation Current Visit: No Status: Acute Priority: Medium Code(s): I48.91 - UNSPECIFIED ATRIAL FIBRILLATION SNOMED Code(s): 63420447 Comment: continue metoprolol 100mg bid AC with warfarin--had been held in ICU due to supratherapeutic INR, will resume today at 5mg daily, goal INR 2-3
[2017-07-04] MEDS: Mometasone/Formoter 200/5 MDI INH SCH ×2 (09:38→21:09)
[2017-07-04] MEDS: Tiotropium CAP.INH* CAP.INH/18 MCG (USE ORDER SET !) INH SCH (09:38)
[2017-07-04] MEDS ORDERED: NS 0.9% 250 ML* 250 ML ONE (10:15)
[2017-07-04] MEDS: Sertraline* 25 MG TAB PO SCH (10:29)
[2017-07-04] MEDS: predniSONE TAB* 10 MG PO SCH (10:29)
[2017-07-04] MEDS: Famotidine TAB* 20 MG PO SCH ×2 (10:29→20:42)
[2017-07-04] MEDS: Aspirin Low Dose CHEW TAB* 81 MG PO SCH (10:30)
[2017-07-04] MEDS: Diltiazem CD CAP* 240 MG PO SCH (10:30)
[2017-07-04] MEDS: Furosemide TAB* 20 MG PO SCH (10:31)
--- NOTE | 2017-07-04 11:24 | RAD ---
INDICATION: Follow-up pleural effusion COMPARISON: Most recent comparison chest x-rays dated June 29, 2017 TECHNIQUE: Single AP portable view of the chest was obtained. FINDINGS: Image quality is compromised due to the relative inferiority of a portable chest x-ray. There has been interval removal of the endotracheal tube. The left-sided PICC line is unchanged in position. Similar the prior chest x-ray there is mild cardiomegaly. Density obscures the right lung base similar in appearance to the previous chest x-ray. More superiorly the lungs are adequately aerated. Visualized bones are normal for the patient's age. IMPRESSION: Persistent small to moderate right-sided pleural effusion.
--- NOTE | 2017-07-04 11:28 | ECHO ---
Patient: LOLY DUMONT [facility] Rec#: [id number] : 1940 Date: 07/04/2017 Age: 76y Height: 177.8 cm / 70.0 in Weight: 64.86 kg / 143.0 lbs Sex: M BSA: 1.81 Room#: [facility] Admit Date#: 06/26/2017 Type: Inpatient Referring: Kezia Mcmahon MD Reading: Liyah Hernandez MD Rig Supervisor: Honey Alegria [facility] CC: Joseph Washington MD Transthoracic Echocardiogram Indication: Respiratory abn//CHF BP: 154/64 HR: 110 Rhythm: A-Fib Findings History: A-fib,MR,HTN,HLD,CHF,DVT,COPD,recent pneumonia.former smoker,prior cardiac arrest, abdominal wound secondary to mesh implant. Technical Comments: The study is technically limited due to the patient's history of COPD. Definity used to enhance images. The study is technically limited due to the patient's smoking history. Left Ventricle: The left ventricular chamber size is normal. Global left ventricular wall motion and contractility are within normal limits. Left ventricular systolic function is at the lower limits of normal. The estimated ejection fraction is 50-55%. The assessment of diastolic function is non-diagnostic. The left ventricular diastolic filling pattern is consistent with elevated left ventricular end-diastolic pressure. Left Atrium: The left atrium is severely dilated. Right Ventricle: The right ventricular cavity size is normal. The right ventricular global systolic function is mildly reduced. Right Atrium: The right atrium is moderate to severely dilated. Aortic Valve: The aortic valve is trileaflet. The aortic valve leaflets are mildly thickened. Systolic excursion of the aortic valve cusps is reduced. There is mild aortic regurgitation. There is mild aortic stenosis. The aortic valve area, by VTI's, is calculated at 1.4 cm2. Highest aortic valve velocity was acquired with Pedoff in apical position. Mitral Valve: There is mitral annular calcification. The mitral valve leaflets are mildly thickened. Mitral valve leaflet mobility is mildly restricted. There is mild to moderate mitral regurgitation. There is mild mitral stenosis. Tricuspid Valve: The tricuspid valve leaflets are normal. There is mild tricuspid regurgitation. The right ventricular systolic pressure is estimated at 44 mmHg. There is evidence of mild to moderate pulmonary hypertension. There is no tricuspid stenosis. Pulmonic Valve: The pulmonic valve appears normal. There is trace to mild pulmonic regurgitation. There is no pulmonic stenosis. Pericardium: The pericardium appears normal. Aorta: There is no dilatation of the ascending aorta. The aortic arch is not well visualized. There is no dilation of the aortic root. Pulmonary Artery: The main pulmonary artery appears normal. Venous: The venous system is not well visualized. Due to abdominal wound. Contrast: Definity was used to optimize study. A total of 4 ml. used. Intravenous contrast was used to enhance endocardial border definition. Conclusions The patient was in atrial fibrillation throughout the study. Global left ventricular wall motion and contractility are within normal limits. The estimated ejection fraction is 50-55%. Elevated left ventricular end-diastolic pressure based on E/e'. The right ventricular global systolic function is mildly reduced. Biatrial enlargment. There is mild aortic regurgitation. There is mild aortic stenosisL mean gradient is 7.28 mmHg, the SHIRA is 1.4 cm2, DI 0.45. Mitral valve leaflet mobility is mildly restricted with mild mitral stenosis, mean gradient is 5.05 mmHg. There is mild to moderate mitral regurgitation. There is mild tricuspid regurgitation. There is evidence of mild to moderate pulmonary hypertension: 44 mmHg. Compared with prior echo of 01/03/16, LVH no longer noted, ED previously 45-50%, AI previously mild to moderate, MR previously mild, MS previously borderline, TR previoulsy mild to moderate, PA pressure not significantly changed. Measurements Name Value Normal Range RVIDd (AP) 2D 3 cm (0.9 - 2.6) RAd ISD 4CH 6.2 cm (3.4 - 4.9) RA (A4C)W 5.3 cm (2.9 - 4.6) IVSd (2D) 0.7 cm (0.6 - 1) LVPWd (2D) 1 cm (0.6 - 1) LVIDd (2D) 3.8 cm (3.6 - 5.4) LVIDs (2D) 3 cm - LV FS (2D) 21 % (25 - 45) Aortic Annulus 2.1 cm (1.4 - 2.6) Ao root diameter (2D) 3.4 cm (2.1 - 3.5) Ascending Ao 2.9 cm (2.1 - 3.4) LA dimension (AP) 2D 5.7 cm (2.3 - 3.8) LAd ISD 4CH 7.1 cm (2.9 - 5.3) LA ISD 4CH W 5.3 cm (2.5 - 4.5) Name Value Normal Range LA ESV SP 4CH (A/L) 167 ml - LA ESV SP 2CH (A/L) 141 ml - LA ESV BP (A/L) 154 ml - LA ESV BP (A/L) index 85.12 ml/m2 - LA ESV SP 4CH (MOD) 149 ml - LA ESV SP 2CH (MOD) 132 ml - Name Value Normal Range MV E-wave Vmax 2 m/sec - MV deceleration time 218 msec - LV septal e' Vmax 0.09 m/sec - LV lateral e' Vmax 0.09 m/sec - LV E:e' septal ratio 22.22 ratio - LV E:e' lateral ratio 22.22 ratio - Name Value Normal Range AV Vmax 1.9 m/sec - AV VTI 34.9 cm - AV peak gradient 14.59 mmHg - AV mean gradient 7.28 mmHg - LVOT diameter 2 cm - LVOT Vmax 0.9 m/sec - LVOT VTI 15.8 cm - LVOT peak gradient 3.23 mmHg - LVOT mean gradient 1.58 mmHg - SV LVOT 50 ml - SHIRA (continuity Vmax) 1.5 cm2 - SHIRA (continuity VTI) 1.4 cm2 - AR PHT 435 msec - AR peak gradient 47.36 mmHg - Name Value Normal Range MV Vmax 2 m/sec - MV VTI 35.4 cm - MV peak gradient 16.42 mmHg - MV mean gradient 5.05 mmHg - MV PHT 57 msec - MR Vmax 5.5 m/sec - MR VTI 166.9 cm - MVA (PHT) 3.8 cm2 - MVA (continuity VTI) 1.4 cm2 - Name Value Normal Range TR Vmax 3 m/sec - TR peak gradient 36 mmHg - RAP 8 mmHg - RVSP 44 mmHg - Name Value Normal Range PV Vmax 0.8 m/sec - PV peak gradient 2.39 mmHg -
--- NOTE | 2017-07-04 15:01 | RAD ---
CPT II Codes: 6045F INDICATION: Pleural effusion. COMPARISON: Recent chest x-ray. PROCEDURE NOTE AND IMAGING FINDINGS: The benefits of the and risks of procedure explained to the patient. The patient consented of the exam. At the patient's bedside multiple images of the right hemithorax were obtained. There was a small pleural effusion present. The site was marked. A formal time out was performed before beginning the procedure. The patient was prepped and draped in the usual sterile fashion. The patient?s posterior chest wall was anesthetized with 1% lidocaine. A small skin reynold was made to allow placement of the thoracentesis needle and catheter. Approximately 500 mL of dustin-colored fluid was aspirated. The patient tolerated the procedure without incident. IMPRESSION: Uncomplicated thoracentesis as described in the body of the report.
[2017-07-04] MEDS: Warfarin TAB(*) 5 MG PO SCH (17:16)
--- NOTE | 2017-07-04 21:29 | PN ---
Progress Note - Progress Note Date of Service: 07/04/17 - Pulm f/u note Note: Pt seen and examined at bedside. Pt denies any new complaints. Reports that he is being wired, would like to be able to ambulate freely. Denies signficant cough. Had thoracentesis today, 500ml removed Active Medications Generic Name Dose Route Start Last Admin Trade Name Freq PRN Reason Stop Dose Admin Al Hydrox/Mg Hydrox/Simethicone 30 ml 07/03/17 08:02 Maalox Plus* PO Q6H PRN INDIGESTION Albuterol 2.5 mg 06/26/17 22:50 Ventolin 2.5 Mg/3 Ml Neb.Vicenta* INH Q2H PRN SOB/WHEEZING Aspirin 81 mg 07/03/17 08:02 07/04/17 10:30 Aspirin Low Dose Tab* PO 81 mg DAILY [facility] Administration Diltiazem HCl 240 mg 06/30/17 09:00 07/04/17 10:30 Cardizem Cd Cap* PO 240 mg QAM [facility] Administration Docusate Sodium 100 mg 06/27/17 01:42 Colace Liq* PO BID PRN CONSTIPATION Famotidine 20 mg 06/28/17 21:00 07/04/17 20:42 Pepcid Tab* PO 20 mg BID [facility] Administration Furosemide 20 mg 07/03/17 09:00 07/04/17 10:31 Lasix Tab* PO 20 mg DAILY [facility] Administration Heparin Sodium (Porcine) 1 - 3 ml 06/29/17 18:00 07/04/17 20:20 Heparin Flush Picc/Ml/Cvc(*) FLUSH Not Given 0600,1800 [facility] Protocol Piperacillin Sod/Tazobactam 100 mls @ 25 mls/hr 06/27/17 05:30 07/04/17 14:12 Sod 3.375 gm/ Sodium Chloride IVPB 25 mls/hr Q8H [facility] Administration Vancomycin HCl 750 mg/ Sodium 250 mls @ 166.667 mls/hr 06/28/17 10:30 20:21 Chloride IVPB 166.667 mls/hr 0230,1030,1830 [facility] Administration Metoprolol Tartrate 25 mg 06/30/17 17:00 07/04/17 17:09 Lopressor Tab* PO 25 mg Q6H [facility] Administration Mometasone Furoate/Formoterol Fumar 2 puff 07/01/17 21:00 07/04/17 21:09 Dulera 200/5 Mdi* INH 2 puff BID [facility] Administration Ondansetron HCl 4 mg 06/26/17 22:19 Zofran Inj* IV Q4H PRN NAUSEA/VOMITING Pharmacy Consult 1 note 06/26/17 23:00 Zosyn Per Pharmacy* FOLLOW UP .ZOSYN PER PHARMACY [facility] Pharmacy Consult 1 note 06/27/17 00:39 Vancomycin Per Pharmacy* FOLLOW UP . PRN PER PROTOCOL Pharmacy Profile Note 1 note 07/06/17 10:00 Vancomycin Trough Check FOLLOW UP 07/06/17 10:01 ONCE ONE Pharmacy Profile Note 0 note 07/04/17 17:00 07/04/17 17:17 Coumadin Daily Reminder* FOLLOW UP 1 note 1700 [facility] Administration Prednisone 30 mg 07/01/17 11:10 07/04/17 10:29 Deltasone Tab* PO 30 mg DAILY [facility] Administration Senna 1 tab 06/27/17 01:16 Senokot Tab* NG TUBE BID PRN CONSTIPATION Sertraline HCl 25 mg 07/03/17 08:03 07/04/17 10:29 Zoloft* PO 25 mg DAILY [facility] Administration Tiotropium [place] 1 cap 07/02/17 09:00 07/04/17 09:38 Spiriva Cap.Inh* INH 1 cap DAILY [facility] Administration Warfarin Sodium 5 mg 07/04/17 17:00 07/04/17 17:16 Coumadin Tab(*) PO 5 mg DAILY@1700 [facility] Administration Protocol Vital Signs Temp Pulse Resp BP Pulse Ox 97.9 F 94 24 136/66 99 07/04/17 19:50 07/04/17 19:50 07/04/17 19:50 07/04/17 19:50 07/04/17 19:50 Gen: Pt in NAD, alert, awake, sitting in chair HEENT: PERRLA, no JVD, no accessory muscle usage Lungs:Diminished a/e b/l at bases, no wheeze Cardiac: S1, S2+, regular Abdomen: Soft, BS+ Extremities: Improvement in edema of UE and LE, pulses palpable and brisk Neuro: Alert, awake, oriented, no focal defecits, decreased strength in extremities Skin: Chronic changes, bruises from fall at home Laboratory Results - last 24 hr 07/04/17 07/04/17 07/04/17 04:15 04:15 04:15 WBC 20.7 H RBC 4.29 Hgb 12.1 L Hct 37 L MCV 86 MCH 28 MCHC 33 RDW 15 Plt Count 206 MPV 8 INR (Anticoag Therapy) 1.05 H Sodium 140 Potassium 4.2 Chloride 101 Carbon Dioxide 39 H BUN 24 Creatinine 0.73 Est GFR ( Amer) 135.1 Est GFR (Non-Af Amer) 105.0 BUN/Creatinine Ratio 32.9 H Glucose 97 Calcium 8.6 Fluid Source Fluid Volume Fluid Color Fluid Appearance Fluid WBC Fluid RBC Fluid Tot Cell Count Fluid Neutrophils Fluid Lymphocytes Fluid Monocytes Fluid Other Cells 07/04/17 13:31 WBC RBC Hgb Hct MCV MCH MCHC RDW Plt Count MPV INR (Anticoag Therapy) Sodium Potassium Chloride Carbon Dioxide BUN Creatinine Est GFR ( Amer) Est GFR (Non-Af Amer) BUN/Creatinine Ratio Glucose Calcium Fluid Source Pleural fluid Fluid Volume 2.5 Fluid Color Carlotta Fluid Appearance Cloudy Fluid WBC 233 Fluid RBC 53956 Fluid Tot Cell Count 100 Fluid Neutrophils 41 Fluid Lymphocytes 35 Fluid Monocytes 24 Fluid Other Cells 2 Impression/Recommendations: 76 y o f with severe COPD on home O2, chronic resp failure on BiPAP at night, CHF, A.fib, loculated rt effusion, recent admission for PNA, hypoxic and acute on chronic hypercapnic resp failure, d/nicole home 1 day prior to current admission , had cardiac arrest, CPR by , questionable seizure activity, intubated for acute hypoxic and hypercapnic resp failure s/p intubation 2, extubated , minimal O2 requirement, COPD, advanced on home O2 and NIPPV, not in acute exacerbation, PNA on abx,loculated rt pleural effusion s/p thoracentesis / , A.fib, rate controlled, CHF with acute exacerbation, responding to diuresis Improved BP control with increase in beta paulino, CHF improved with diuresis, c /w metoprolol, diltiazem. c/w 2L O2, not in distress, will c/w BiPAP at night and prn for SOB during daytime, c/w nebs, pul toliet - On empiric therapy for HCAP, c/w Zosyn and vanco (completed 8 days). Leucocytosis +, lactic acid normalized, to d/c abx - Prednisone, continue to taper. - Chronic edema of upper and LE, good peripheral pulses, dopplers of UE and LE, Rt LE negative. Has hypoalbuminemia resulting in anasarca, improving. Protein supplementation c/w PT Pt will benefit from subacute rehab when stable IV access: PICC line placed 06/28/17 for fluids, abx administration, given poor peripheral access due to anasarca D/c planning
[2017-07-05] MEDS: Vancomycin(*) 750 MG in NS 0.9% 250 ML* 250 ML IVPB SCH ×3 (03:39→18:25)
[2017-07-05] MEDS: Metoprolol Tartrate TAB* 25 MG PO SCH ×4 (05:19→21:03)
[2017-07-05 05:39] LABS: Hematocrit 37 % (42-52); Hemoglobin 11.8 g/dl (14.0-18.0); Mean Corpuscular HGB Conc 32 g/dl (31-36); Mean Corpuscular Hemoglobin 28 pg (27-31); Mean Corpuscular Volume 87 fL (80-94); Mean Platelet Volume 8 um3 (7.4-10.4); Platelet Count 199 10^3/ul (150-450); Red Blood Count 4.22 10^6/ul (4.0-5.4); Red Cell Distribution Width 15 % (10.5-15); White Blood Count 19.2 10^3/ul (3.5-10.8)
[2017-07-05 05:47] LABS: INR 1.03 (0.77-1.02)
[2017-07-05 05:50] LABS: EGFR Non-African American 122.2 (>60)
[2017-07-05 06:13] LABS: ABS Basophils 0 10^3/ul (0-0.2); ABS Eosinophils 0 10^3/ul (0-0.6); ABS Lymphocytes 0.8 10^3/ul (1.0-4.8); ABS Monocytes 1.5 10^3/ul (0-0.8); ABS Neutrophils 16.7 10^3/ul (1.5-7.7); ABS Nucleated RBC 0 10^3/ul; Eosinophil % 0.2 % (0-6); Lymphocyte % 4.4 % (25-47); Nucleated Red Blood Cells % 0.1
[2017-07-05] MEDS: Furosemide TAB* 20 MG PO SCH (08:56)
[2017-07-05] MEDS: Famotidine TAB* 20 MG PO SCH ×2 (08:56→21:03)
[2017-07-05] MEDS: Sertraline* 25 MG TAB PO SCH (08:56)
[2017-07-05] MEDS: Aspirin Low Dose CHEW TAB* 81 MG PO SCH (08:56)
[2017-07-05] MEDS: Diltiazem CD CAP* 240 MG PO SCH (08:56)
[2017-07-05] MEDS: predniSONE TAB* 10 MG PO SCH (08:56)
[2017-07-05] MEDS: Mometasone/Formoter 200/5 MDI INH SCH ×2 (09:01→19:25)
[2017-07-05] MEDS: Tiotropium CAP.INH* CAP.INH/18 MCG (USE ORDER SET !) INH SCH (09:03)
[2017-07-05 10:41] LABS: Vancomycin Trough 16.2 mcg/mL
[2017-07-05] MEDS ORDERED: Magnesium Sulfate 2 GM IV* 2 GM/50 ML BAG IVPB ONE (13:30)
[2017-07-05] MEDS: Warfarin TAB(*) 5 MG PO SCH (17:01)
--- NOTE | 2017-07-05 19:45 | PN ---
Subjective Date of Service: 07/05/17 Interval History: Reportedly no running water at home. MRSA nares negative Has been denied 3 times for mesh removal surgery. original accident 5 years ago. Afebrile, wbc to 19.2, slightly improved 2+ edema PT(already)/OT/PMRU consults Family History: Unchanged from Admission Social History: Unchanged from Admission Past Medical History: Unchanged from Admission Objective Active Medications: Al Hydrox/Mg Hydrox/Simethicone (Maalox Plus*) 30 ml PO Q6H PRN PRN Reason: INDIGESTION Albuterol (Ventolin 2.5 Mg/3 Ml Neb.Vicenta*) 2.5 mg INH Q2H PRN PRN Reason: SOB/WHEEZING Aspirin (Aspirin Low Dose Tab*) 81 mg PO DAILY [facility] Last Admin: 07/05/17 08:56 Dose: 81 mg Diltiazem HCl (Cardizem Cd Cap*) 240 mg PO QAM [facility] Last Admin: 07/05/17 08:56 Dose: 240 mg Docusate Sodium (Colace Liq*) 100 mg PO BID PRN PRN Reason: CONSTIPATION Famotidine (Pepcid Tab*) 20 mg PO BID [facility] Last Admin: 07/05/17 08:56 Dose: 20 mg Furosemide (Lasix Tab*) 20 mg PO DAILY [facility] Last Admin: 07/05/17 08:56 Dose: 20 mg Heparin Sodium (Porcine) (Heparin Flush Picc/Ml/Cvc(*)) 1 - 3 ml FLUSH 0600, 1800 [facility] PRN Reason: Protocol Last Admin: 07/05/17 14:46 Dose: 2 ml Vancomycin HCl 750 mg/ Sodium (Chloride) 250 mls @ 166.667 mls/hr IVPB 0230, 1030,1830 [facility] Last Admin: 07/05/17 18:25 Dose: 166.667 mls/hr Metoprolol Tartrate (Lopressor Tab*) 25 mg PO Q6H [facility] Last Admin: 07/05/17 17:01 Dose: 25 mg Mometasone Furoate/Formoterol Fumar (Dulera 200/5 Mdi*) 2 puff INH BID [facility] Last Admin: 07/05/17 19:25 Dose: 2 puff Ondansetron HCl (Zofran Inj*) 4 mg IV Q4H PRN PRN Reason: NAUSEA/VOMITING Pharmacy Profile Note (Vancomycin Trough Check) 1 note FOLLOW UP ONCE ONE Stop: 07/06/17 10:01 Pharmacy Profile Note (Coumadin Daily Reminder*) 0 note FOLLOW UP 1700 [facility] Last Admin: 07/05/17 17:01 Dose: 1 note Prednisone (Deltasone Tab*) 20 mg PO DAILY [facility] Last Admin: 07/05/17 08:56 Dose: 20 mg Senna (Senokot Tab*) 1 tab NG TUBE BID PRN PRN Reason: CONSTIPATION Sertraline HCl (Zoloft*) 25 mg PO DAILY [facility] Last Admin: 07/05/17 08:56 Dose: 25 mg Tiotropium [place] (Spiriva Cap.Inh*) 1 cap INH DAILY [facility] Last Admin: 07/05/17 09:03 Dose: 1 cap Warfarin Sodium (Coumadin Tab(*)) 5 mg PO DAILY@1700 [facility] PRN Reason: Protocol Last Admin: 07/05/17 17:01 Dose: 5 mg Vital Signs - 8 hr 07/05/17 07/05/17 15:54 19:26 Temperature 97.9 F Pulse Rate 87 69 Respiratory 22 16 Rate Blood Pressure 95/57 (mmHg) O2 Sat by Pulse 98 99 Oximetry Oxygen Devices in Use Now: Nasal Cannula Appearance: NAD Eyes: No Scleral Icterus, PERRLA Respiratory: Symmetrical Chest Expansion and Respiratory Effort, - - reduced right base, no wheezing or rhonchi. Cardiovascular: NL Sounds; No Murmurs; No JVD, RRR Abdominal: - - soft, nontender, nondistended. hypopigmented scars anterior abdemen w/ crusted scabs. no pietro drainage or erythema. Extremities: - - 2+ edema in LE, no dependent edema in flanks. Neurological: Alert and Oriented x 3, NL Sensation, NL Gait Result Diagrams: 07/05/17 05:20 07/05/17 05:20 Additional Lab and Data: Laboratory Results - last 24 hr 07/04/17 07/04/17 07/04/17 13:31 13:31 13:31 WBC RBC Hgb Hct MCV MCH MCHC RDW Plt Count MPV Neut % (Auto) Lymph % (Auto) Yell % (Auto) Eos % (Auto) Baso % (Auto) Absolute Neuts (auto) Absolute Lymphs (auto) Absolute Monos (auto) Absolute Eos (auto) Absolute Basos (auto) Absolute Nucleated RBC Nucleated RBC % INR (Anticoag Therapy) Sodium Potassium Chloride Carbon Dioxide Anion Gap BUN Creatinine Est GFR ( Amer) Est GFR (Non-Af Amer) BUN/Creatinine Ratio Glucose Calcium Magnesium Total Bilirubin AST ALT Alkaline Phosphatase Total Protein Albumin Globulin Albumin/Globulin Ratio Fluid Source Pleural fluid Pleural fluid Fluid Cell Count Rvw By Fluid Total Protein 1.3 Fluid LDH 88 Fluid Comment Vancomycin Trough 07/05/17 07/05/17 07/05/17 05:20 05:20 05:20 WBC 19.2 H RBC 4.22 Hgb 11.8 L Hct 37 L MCV 87 MCH 28 MCHC 32 RDW 15 Plt Count 199 MPV 8 Neut % (Auto) 87.2 H Lymph % (Auto) 4.4 L Yell % (Auto) 8.0 Eos % (Auto) 0.2 Baso % (Auto) 0.2 Absolute Neuts (auto) 16.7 H Absolute Lymphs (auto) 0.8 L Absolute Monos (auto) 1.5 H Absolute Eos (auto) 0 Absolute Basos (auto) 0 Absolute Nucleated RBC 0 Nucleated RBC % 0.1 INR (Anticoag Therapy) 1.03 H Sodium 139 Potassium 4.2 Chloride 100 L Carbon Dioxide 38 H Anion Gap 1 L BUN 23 Creatinine 0.64 L Est GFR ( Amer) 157.2 Est GFR (Non-Af Amer) 122.2 BUN/Creatinine Ratio 35.9 H Glucose 89 Calcium 8.6 Magnesium 1.8 L Total Bilirubin 1.00 AST 20 ALT 35 Alkaline Phosphatase 60 Total Protein 5.2 L Albumin 2.8 L Globulin 2.4 Albumin/Globulin Ratio 1.2 Fluid Source Fluid Cell Count Rvw By Fluid Total Protein Fluid LDH Fluid Comment Vancomycin Trough 07/05/17 09:45 WBC RBC Hgb Hct MCV MCH MCHC RDW Plt Count MPV Neut % (Auto) Lymph % (Auto) Yell % (Auto) Eos % (Auto) Baso % (Auto) Absolute Neuts (auto) Absolute Lymphs (auto) Absolute Monos (auto) Absolute Eos (auto) Absolute Basos (auto) Absolute Nucleated RBC Nucleated RBC % INR (Anticoag Therapy) Sodium Potassium Chloride Carbon Dioxide Anion Gap BUN Creatinine Est GFR ( Amer) Est GFR (Non-Af Amer) BUN/Creatinine Ratio Glucose Calcium Magnesium Total Bilirubin AST ALT Alkaline Phosphatase Total Protein Albumin Globulin Albumin/Globulin Ratio Fluid Source Fluid Cell Count Rvw By Fluid Total Protein Fluid LDH Fluid Comment Vancomycin Trough 16.2 Microbiology and Other Data: Microbiology 07/04/17 13:31 Pleural Fluid Sterile Body Fluid Culture - Preliminary No Growth Day 1 07/04/17 13:31 Pleural Fluid Sterile Body Fluid Culture - Preliminary No Growth Day 1 07/05/17 09:45 Nasal Nasal Screen MRSA (PCR)(KINJAL) - Final Mrsa Not Detected 07/03/17 06:04 Sputum Gram Stain - Final 07/03/17 06:04 Sputum Sputum Culture - Final YEAST Normal Wilder 07/04/17 13:31 Body Fluid - Pleura Gram Stain - Final 06/26/17 21:44 Blood Venous Aerobic Blood Culture - Final No Growth Day 5 06/26/17 21:44 Blood Venous Anaerobic Blood Culture - Final No Growth Day 5 06/26/17 20:48 Blood Venous Aerobic Blood Culture - Final No Growth Day 5 06/26/17 20:48 Blood Venous Anaerobic Blood Culture - Final No Growth Day 5 Assess/Plan/Problems-Billing Assessment: 78 yo male PMH COPD, diastolic heart failure, and chronic hypoxic (2-3L)and hypercapneic respiratory failure admitted after cardiac arrest at home (12 min CPR bystander), intubated on arrival to the ED. Just discharged day prior ( nonhealing abdominal wound) In the ICU, he has been diuresed, treated for a copd exacerbation, and treated with broad spectrum antibiotics for presumed HCAP. - Patient Problems (1) Chronic diastolic heart failure Current Visit: Yes Status: Acute Code(s): I50.32 - CHRONIC DIASTOLIC ( CONGESTIVE) HEART FAILURE SNOMED Code(s): 598329680 Comment: continue diuresis, still with significant lower extremity edema. daily weights, strict io ECHO with EF 50-55%, mild , mild to moderate MVR s/p thoracentesis 07/04 reports massive edema last discharge and 20 lb weight gain from prior baseline ~ 140 lbs. (2) Acute and chronic respiratory failure with hypoxia Current Visit: Yes Status: Acute Code(s): J96.21 - ACUTE AND CHRONIC RESPIRATORY FAILURE WITH HYPOXIA SNOMED Code(s): 05193889 Comment: Now resolved and back to his baseline O2 requirement of 2-3L He required intubation at admission (though it appears this was more likely related to hypercapnia pCO2 78 on ABGthan hypoxia) sputum cultures yeast and normal wilder (3) Pleural effusion Current Visit: Yes Status: Acute Code(s): J90 - PLEURAL EFFUSION, NOT ELSEWHERE CLASSIFIED SNOMED Code(s): 34166003 Comment: LDH 88 vs pending(serum, added on) Total Protein 1.3 vs 5.2 GS: no orgs, f/u culture loculated appearance on CT appreciate pulm recs (4) Tobacco abuse Current Visit: Yes Status: Acute Code(s): Z72.0 - TOBACCO USE SNOMED Code( s): 813251250 Comment: Not ready to quit. (5) Acute hypercapnic respiratory failure Current Visit: Yes Status: Acute Code(s): J96.02 - ACUTE RESPIRATORY FAILURE WITH HYPERCAPNIA SNOMED Code(s): 581950061 Comment: suspect worsened with volume overload. continue nocturnal bipap. tapering prednisone nebs q2h prn (6) Atrial fibrillation Current Visit: No Status: Acute Priority: Medium Code(s): I48.91 - UNSPECIFIED ATRIAL FIBRILLATION SNOMED Code(s): 53576989 Comment: continue metoprolol 25mg q6 AC with warfarin 5mg daily, goal INR 2-3 (7) COPD (chronic obstructive pulmonary disease) Current Visit: No Status: Acute Priority: Medium Code(s): J44.9 - CHRONIC OBSTRUCTIVE PULMONARY DISEASE, UNSPECIFIED SNOMED Code(s): 21151579 Comment: nebs and steroids for acute exacerbation (8) Chronic abdominal wound infection Current Visit: No Status: Acute Code(s): S31.109A - UNSP OPN WND ABD WALL, UNSP Q W/O PENET PERIT CAV, INIT; L08.9 - LOCAL INFECTION OF THE SKIN AND SUBCUTANEOUS TISSUE, UNSP SNOMED Code(s): 12232985 Comment: with superimposed infection s/p debridement at admission 06/22 5 different organisms were growing and was discharged on flagyl, bactrim. Dr. Ennis recommended referral to a tertiary center for definitive surgery. They planned to go to [place]. Already tried [facility] where original surgery was 5 years ago Status and Disposition: medicine inpatient.
[2017-07-06] MEDS: Metoprolol Tartrate TAB* 25 MG PO SCH ×3 (04:49→18:02)
[2017-07-06 04:55] LABS: Hematocrit 34 % (42-52); Hemoglobin 11.2 g/dl (14.0-18.0); Mean Corpuscular HGB Conc 33 g/dl (31-36); Mean Corpuscular Hemoglobin 29 pg (27-31); Mean Corpuscular Volume 87 fL (80-94); Mean Platelet Volume 8 um3 (7.4-10.4); Platelet Count 183 10^3/ul (150-450); Red Blood Count 3.93 10^6/ul (4.0-5.4); Red Cell Distribution Width 15 % (10.5-15); White Blood Count 16.2 10^3/ul (3.5-10.8)
[2017-07-06 04:59] LABS: INR 1.14 (0.77-1.02)
[2017-07-06 05:04] LABS: EGFR Non-African American 106.7 (>60)
[2017-07-06] MEDS ORDERED: Furosemide TAB* 20 MG PO SCH (07:46)
[2017-07-06] MEDS: Diltiazem CD CAP* 240 MG PO SCH (08:22)
[2017-07-06] MEDS: predniSONE TAB* 10 MG PO SCH (08:23)
[2017-07-06] MEDS: Famotidine TAB* 20 MG PO SCH ×2 (08:23→21:04)
[2017-07-06] MEDS: Sertraline* 25 MG TAB PO SCH (08:23)
[2017-07-06] MEDS: Aspirin Low Dose CHEW TAB* 81 MG PO SCH (08:23)
[2017-07-06] MEDS: Tiotropium CAP.INH* CAP.INH/18 MCG (USE ORDER SET !) INH SCH (09:06)
[2017-07-06] MEDS: Mometasone/Formoter 200/5 MDI INH SCH ×2 (09:07→20:13)
[2017-07-06] MEDS ORDERED: Vancomycin Trough Check NOTE FOLLOW UP ONE (10:00)
--- NOTE | 2017-07-06 14:42 | PN ---
Subjective Date of Service: 07/06/17 Interval History: some twinges of left lateral pleuritic pain x2. no SOB or chest pain/tightness not coughing. no abdominal pain. Afebrile. WBC down. off abx now. Pleural fluid transudative, no growth to date. Family History: Unchanged from Admission Social History: Unchanged from Admission Past Medical History: Unchanged from Admission Objective Active Medications: Al Hydrox/Mg Hydrox/Simethicone (Maalox Plus*) 30 ml PO Q6H PRN PRN Reason: INDIGESTION Albuterol (Ventolin 2.5 Mg/3 Ml Neb.Vicenta*) 2.5 mg INH Q2H PRN PRN Reason: SOB/WHEEZING Aspirin (Aspirin Low Dose Tab*) 81 mg PO DAILY [facility] Last Admin: 07/06/17 08:23 Dose: 81 mg Diltiazem HCl (Cardizem Cd Cap*) 240 mg PO QAM [facility] Last Admin: 07/06/17 08:22 Dose: 240 mg Docusate Sodium (Colace Liq*) 100 mg PO BID PRN PRN Reason: CONSTIPATION Famotidine (Pepcid Tab*) 20 mg PO BID [facility] Last Admin: 07/06/17 08:23 Dose: 20 mg Furosemide (Lasix Iv*) 40 mg IV 0800,1700 [facility] Heparin Sodium (Porcine) (Heparin Flush Picc/Ml/Cvc(*)) 1 - 3 ml FLUSH 0600, 1800 [facility] PRN Reason: Protocol Last Admin: 07/06/17 04:50 Dose: 2 ml Metoprolol Tartrate (Lopressor Tab*) 25 mg PO Q6H [facility] Last Admin: 07/06/17 10:08 Dose: 25 mg Mometasone Furoate/Formoterol Fumar (Dulera 200/5 Mdi*) 2 puff INH BID [facility] Last Admin: 07/06/17 09:07 Dose: 2 puff Ondansetron HCl (Zofran Inj*) 4 mg IV Q4H PRN PRN Reason: NAUSEA/VOMITING Pharmacy Profile Note (Coumadin Daily Reminder*) 0 note FOLLOW UP 1700 [facility] Last Admin: 07/05/17 17:01 Dose: 1 note Prednisone (Deltasone Tab*) 20 mg PO DAILY [facility] Last Admin: 07/06/17 08:23 Dose: 20 mg Senna (Senokot Tab*) 1 tab NG TUBE BID PRN PRN Reason: CONSTIPATION Sertraline HCl (Zoloft*) 25 mg PO DAILY [facility] Last Admin: 07/06/17 08:23 Dose: 25 mg Tiotropium [place] (Spiriva Cap.Inh*) 1 cap INH DAILY [facility] Last Admin: 07/06/17 09:06 Dose: 1 cap Warfarin Sodium (Coumadin Tab(*)) 5 mg PO DAILY@1700 [facility] PRN Reason: Protocol Last Admin: 07/05/17 17:01 Dose: 5 mg Vital Signs - 8 hr 07/06/17 07/06/17 07/06/17 07:45 08:00 11:38 Temperature 97.8 F 98.5 F Pulse Rate 42 94 Respiratory 16 20 20 Rate Blood Pressure 123/65 95/49 (mmHg) O2 Sat by Pulse 96 100 Oximetry Oxygen Devices in Use Now: Nasal Cannula Appearance: chronically ill appearing. sitting in Chair Eyes: No Scleral Icterus, PERRLA Ears/Nose/Mouth/Throat: NL Teeth, Lips, Gums, Mucous Membranes Moist Neck: NL Appearance and Movements; NL JVP Respiratory: - - rales b/l bases, no wheezing or rhonchi Cardiovascular: NL Sounds; No Murmurs; No JVD, RRR, - - w/ ectopy Abdominal: - - soft, nontender. slight erythema and scabs. no drainage. Extremities: - - 3+ edema in b/l LE, dependent. Skin: - - eccymosis; erythema, scabs on abdominal wall. Neurological: Alert and Oriented x 3, NL Sensation, NL Muscle Strength and Tone Nutrition: Taking PO's Result Diagrams: 07/06/17 03:45 07/06/17 03:45 Additional Lab and Data: Laboratory Results - last 24 hr 07/05/17 07/06/17 07/06/17 09:45 03:45 03:45 WBC 16.2 H RBC 3.93 L Hgb 11.2 L Hct 34 L MCV 87 MCH 29 MCHC 33 RDW 15 Plt Count 183 MPV 8 INR (Anticoag Therapy) Sodium 139 Potassium 4.2 Chloride 100 L Carbon Dioxide 38 H Anion Gap 1 L BUN 33 H Creatinine 0.72 Est GFR ( Amer) 137.2 Est GFR (Non-Af Amer) 106.7 BUN/Creatinine Ratio 45.8 H Glucose 96 Calcium 8.4 L Lactate Dehydrogenase 241 07/06/17 03:45 WBC RBC Hgb Hct MCV MCH MCHC RDW Plt Count MPV INR (Anticoag Therapy) 1.14 H Sodium Potassium Chloride Carbon Dioxide Anion Gap BUN Creatinine Est GFR ( Amer) Est GFR (Non-Af Amer) BUN/Creatinine Ratio Glucose Calcium Lactate Dehydrogenase Microbiology and Other Data: Microbiology 07/04/17 13:31 Pleural Fluid Sterile Body Fluid Culture - Preliminary No Growth Day 2 07/04/17 13:31 Pleural Fluid Sterile Body Fluid Culture - Preliminary No Growth Day 2 07/05/17 09:45 Nasal Nasal Screen MRSA (PCR)(KINJAL) - Final Mrsa Not Detected 07/03/17 06:04 Sputum Gram Stain - Final 07/03/17 06:04 Sputum Sputum Culture - Final YEAST Normal Wilder 07/04/17 13:31 Body Fluid - Pleura Gram Stain - Final 06/26/17 21:44 Blood Venous Aerobic Blood Culture - Final No Growth Day 5 06/26/17 21:44 Blood Venous Anaerobic Blood Culture - Final No Growth Day 5 06/26/17 20:48 Blood Venous Aerobic Blood Culture - Final No Growth Day 5 06/26/17 20:48 Blood Venous Anaerobic Blood Culture - Final No Growth Day 5 Assess/Plan/Problems-Billing Assessment: 78 yo male PMH COPD, diastolic heart failure, and chronic hypoxic (2-3L)and hypercapneic respiratory failure admitted after cardiac arrest at home (12 min CPR bystander), intubated on arrival to the ED. Just discharged day prior ( nonhealing abdominal wound) In the ICU, he has been diuresed, treated for a copd exacerbation, and treated with broad spectrum antibiotics for presumed HCAP. Needing aggressive diuresis, still 10kg up of dry weight with 3-4 edema in legs. transudative pleural effusion. - Patient Problems (1) Chronic diastolic heart failure Current Visit: Yes Status: Acute Code(s): I50.32 - CHRONIC DIASTOLIC ( CONGESTIVE) HEART FAILURE SNOMED Code(s): 916636471 Comment: increased diuresis to lasix 40mg IV BID, 10kg up from recent admission weight month ago. still with significant lower extremity edema. daily weights, strict io, fluid restiction 1.5L ECHO with EF 50-55%, mild , mild to moderate MVR s/p thoracentesis 07/04 reports massive edema last discharge and 20 lb weight gain from prior baseline ~ 140 lbs. (2) Acute and chronic respiratory failure with hypoxia Current Visit: Yes Status: Acute Code(s): J96.21 - ACUTE AND CHRONIC RESPIRATORY FAILURE WITH HYPOXIA SNOMED Code(s): 00454023 Comment: Now resolved and back to his baseline O2 requirement of 2-3L He required intubation at admission (though it appears this was more likely related to hypercapnia pCO2 78 on ABGthan hypoxia). increase diuresis in order to discharge safely. sputum cultures yeast and normal wilder (3) Pleural effusion Current Visit: Yes Status: Acute Code(s): J90 - PLEURAL EFFUSION, NOT ELSEWHERE CLASSIFIED SNOMED Code(s): 16963640 Comment: LDH 88 vs 241 Total Protein 1.3 vs 5.2 Transudative GS: no orgs, f/u culture loculated appearance on CT appreciate pulm recs consider CXR 07/07 vs 07/08 (4) Tobacco abuse Current Visit: Yes Status: Acute Code(s): Z72.0 - TOBACCO USE SNOMED Code( s): 245685725 Comment: Not ready to quit. (5) Acute hypercapnic respiratory failure Current Visit: Yes Status: Acute Code(s): J96.02 - ACUTE RESPIRATORY FAILURE WITH HYPERCAPNIA SNOMED Code(s): 036998503 Comment: suspect worsened with volume overload. continue nocturnal bipap. tapering prednisone nebs q2h prn (6) Atrial fibrillation Current Visit: No Status: Acute Priority: Medium Code(s): I48.91 - UNSPECIFIED ATRIAL FIBRILLATION SNOMED Code(s): 93703388 Comment: continue metoprolol 25mg q6 AC with warfarin 5mg daily(was paused in ICU given supratherpeutic), goal INR 2- 3 (7) COPD (chronic obstructive pulmonary disease) Current Visit: No Status: Acute Priority: Medium Code(s): J44.9 - CHRONIC OBSTRUCTIVE PULMONARY DISEASE, UNSPECIFIED SNOMED Code(s): 76943279 Comment: nebs and steroids for acute exacerbation (8) Chronic abdominal wound infection Current Visit: No Status: Acute Code(s): S31.109A - UNSP OPN WND ABD WALL, UNSP Q W/O PENET PERIT CAV, INIT; L08.9 - LOCAL INFECTION OF THE SKIN AND SUBCUTANEOUS TISSUE, UNSP SNOMED Code(s): 42983848 Comment: with superimposed infection s/p debridement at admission 06/22 5 different organisms were growing and was discharged on flagyl, bactrim. Dr. Ennis recommended referral to a tertiary center for definitive surgery. [facility] Already tried [place] where original surgery was 5 years ago off abx currently. touched base briefly with Kiko Campo who can see on Sunday if still admitted. Status and Disposition: medicine inpatient. needing further diuresis
[2017-07-06] MEDS: Warfarin TAB(*) 5 MG PO SCH (17:47)
[2017-07-06] MEDS: Furosemide IV* 10 MG/ML VIAL (40 MG) IV SCH (17:50)
[2017-07-07] MEDS: Metoprolol Tartrate TAB* 25 MG PO SCH ×5 (00:02→23:41)
[2017-07-07 07:44] LABS: Hematocrit 37 % (42-52); Hemoglobin 11.8 g/dl (14.0-18.0); Mean Corpuscular HGB Conc 32 g/dl (31-36); Mean Corpuscular Hemoglobin 28 pg (27-31); Mean Corpuscular Volume 87 fL (80-94); Mean Platelet Volume 9 um3 (7.4-10.4); Platelet Count 221 10^3/ul (150-450); Red Blood Count 4.21 10^6/ul (4.0-5.4); Red Cell Distribution Width 15 % (10.5-15); White Blood Count 16.5 10^3/ul (3.5-10.8)
[2017-07-07 07:48] LABS: INR 1.2 (0.77-1.02)
[2017-07-07] MEDS: Tiotropium CAP.INH* CAP.INH/18 MCG (USE ORDER SET !) INH SCH (08:05)
[2017-07-07] MEDS: Mometasone/Formoter 200/5 MDI INH SCH ×2 (08:05→20:32)
[2017-07-07] MEDS: Diltiazem CD CAP* 240 MG PO SCH (09:29)
[2017-07-07] MEDS: Aspirin Low Dose CHEW TAB* 81 MG PO SCH (09:29)
[2017-07-07] MEDS: predniSONE TAB* 10 MG PO SCH (09:29)
[2017-07-07] MEDS: Famotidine TAB* 20 MG PO SCH ×2 (09:29→21:09)
[2017-07-07] MEDS: Furosemide IV* 10 MG/ML VIAL (40 MG) IV SCH ×2 (09:32→17:01)
[2017-07-07] MEDS: Sertraline* 25 MG TAB PO SCH (09:32)
--- NOTE | 2017-07-07 16:07 | PN ---
Subjective Date of Service: 07/07/17 Interval History: Seen sitting in chair eating lunch Denies CP, SOB, pain, N/V Has walk to bathroom with assistance without SOB Appetite excellent Family History: Unchanged from Admission Social History: Unchanged from Admission Past Medical History: Unchanged from Admission Objective Active Medications: Al Hydrox/Mg Hydrox/Simethicone (Maalox Plus*) 30 ml PO Q6H PRN PRN Reason: INDIGESTION Albuterol (Ventolin 2.5 Mg/3 Ml Neb.Vicenta*) 2.5 mg INH Q2H PRN PRN Reason: SOB/WHEEZING Aspirin (Aspirin Low Dose Tab*) 81 mg PO DAILY [facility] Last Admin: 07/07/17 09:29 Dose: 81 mg Diltiazem HCl (Cardizem Cd Cap*) 240 mg PO QAM [facility] Last Admin: 07/07/17 09:29 Dose: 240 mg Docusate Sodium (Colace Liq*) 100 mg PO BID PRN PRN Reason: CONSTIPATION Famotidine (Pepcid Tab*) 20 mg PO BID [facility] Last Admin: 07/07/17 09:29 Dose: 20 mg Furosemide (Lasix Iv*) 40 mg IV 0800,1700 [facility] Last Admin: 07/07/17 09:32 Dose: 40 mg Heparin Sodium (Porcine) (Heparin Flush Picc/Ml/Cvc(*)) 1 - 3 ml FLUSH 0600, 1800 [facility] PRN Reason: Protocol Last Admin: 07/07/17 06:30 Dose: 2 ml Metoprolol Tartrate (Lopressor Tab*) 25 mg PO Q6H [facility] Last Admin: 07/07/17 09:40 Dose: 25 mg Mometasone Furoate/Formoterol Fumar (Dulera 200/5 Mdi*) 2 puff INH BID [facility] Last Admin: 07/07/17 08:05 Dose: 2 puff Ondansetron HCl (Zofran Inj*) 4 mg IV Q4H PRN PRN Reason: NAUSEA/VOMITING Pharmacy Profile Note (Coumadin Daily Reminder*) 0 note FOLLOW UP 1700 [facility] Last Admin: 07/06/17 17:50 Dose: 1 note Prednisone (Deltasone Tab*) 20 mg PO DAILY [facility] Last Admin: 07/07/17 09:29 Dose: 20 mg Senna (Senokot Tab*) 1 tab NG TUBE BID PRN PRN Reason: CONSTIPATION Sertraline HCl (Zoloft*) 25 mg PO DAILY [facility] Last Admin: 07/07/17 09:32 Dose: 25 mg Tiotropium [place] (Spiriva Cap.Inh*) 1 cap INH DAILY [facility] Last Admin: 07/07/17 08:05 Dose: 1 cap Warfarin Sodium (Coumadin Tab(*)) 5 mg PO DAILY@1700 [facility] PRN Reason: Protocol Last Admin: 07/06/17 17:47 Dose: 5 mg Vital Signs - 8 hr 07/07/17 08:26 Temperature 97.8 F Pulse Rate 91 Respiratory 16 Rate Blood Pressure 112/66 (mmHg) O2 Sat by Pulse 100 Oximetry Oxygen Devices in Use Now: Nasal Cannula Appearance: older than stated age, NAD Eyes: No Scleral Icterus, PERRLA Ears/Nose/Mouth/Throat: Mucous Membranes Moist Neck: NL Appearance and Movements; NL JVP, Trachea Midline Respiratory: Symmetrical Chest Expansion and Respiratory Effort, - - decreased in bases Cardiovascular: RRR Abdominal: NL Sounds; No Tenderness; No Distention, No Hepatosplenomegaly Lymphatic: No Cervical Adenopathy Extremities: - - 3+ b/l LE edema Neurological: Alert and Oriented x 3 Result Diagrams: 07/07/17 06:10 07/07/17 06:10 Additional Lab and Data: Laboratory Results - last 24 hr 07/05/17 07/06/17 07/06/17 09:45 03:45 03:45 WBC 16.2 H RBC 3.93 L Hgb 11.2 L Hct 34 L MCV 87 MCH 29 MCHC 33 RDW 15 Plt Count 183 MPV 8 INR (Anticoag Therapy) Sodium 139 Potassium 4.2 Chloride 100 L Carbon Dioxide 38 H Anion Gap 1 L BUN 33 H Creatinine 0.72 Est GFR ( Amer) 137.2 Est GFR (Non-Af Amer) 106.7 BUN/Creatinine Ratio 45.8 H Glucose 96 Calcium 8.4 L Lactate Dehydrogenase 241 07/06/17 03:45 WBC RBC Hgb Hct MCV MCH MCHC RDW Plt Count MPV INR (Anticoag Therapy) 1.14 H Sodium Potassium Chloride Carbon Dioxide Anion Gap BUN Creatinine Est GFR ( Amer) Est GFR (Non-Af Amer) BUN/Creatinine Ratio Glucose Calcium Lactate Dehydrogenase Microbiology and Other Data: Microbiology 07/04/17 13:31 Pleural Fluid Sterile Body Fluid Culture - Preliminary No Growth Day 2 07/04/17 13:31 Pleural Fluid Sterile Body Fluid Culture - Preliminary No Growth Day 2 07/05/17 09:45 Nasal Nasal Screen MRSA (PCR)(KINJAL) - Final Mrsa Not Detected 07/03/17 06:04 Sputum Gram Stain - Final 07/03/17 06:04 Sputum Sputum Culture - Final YEAST Normal [place] 07/04/17 13:31 Body Fluid - Pleura Gram Stain - Final 06/26/17 21:44 Blood Venous Aerobic Blood Culture - Final No Growth Day 5 06/26/17 21:44 Blood Venous Anaerobic Blood Culture - Final No Growth Day 5 06/26/17 20:48 Blood Venous Aerobic Blood Culture - Final No Growth Day 5 06/26/17 20:48 Blood Venous Anaerobic Blood Culture - Final No Growth Day 5 Assess/Plan/Problems-Billing Assessment: 78 yo male PMH COPD, diastolic heart failure, and chronic hypoxic (2-3L)and hypercapneic respiratory failure admitted after cardiac arrest at home (12 min CPR bystander), intubated on arrival to the ED. Just discharged day prior ( nonhealing abdominal wound) In the ICU, he has been diuresed, treated for a copd exacerbation, and treated with broad spectrum antibiotics for presumed HCAP. Receiving aggressive diresis. Noted with transudative pleural effusion. - Patient Problems (1) Chronic diastolic heart failure Comment: lasix 40mg IV BID starting 07/07 Up from recent admission weight 1 month ago. daily weights, strict io, fluid restiction 1.5L ECHO with EF 50-55%, mild , mild to moderate MVR s/p thoracentesis 07/04 baseline ~ 140 lbs. (2) Acute and chronic respiratory failure with hypoxia Comment: Resolved Baseline O2 requirement of 2-3L He required intubation at admission (though it appears this was more likely related to hypercapnia pCO2 78 on ABG than hypoxia). (3) Pleural effusion Comment: LDH 88 vs 241 Total Protein 1.3 vs 5.2 Transudative GS: no orgs, culture NGTD loculated appearance on CT (4) Tobacco abuse Comment: no ready to quite (5) Acute hypercapnic respiratory failure Comment: suspect worsened with volume overload. continue nocturnal bipap. tapering prednisone nebs q2h prn (6) Atrial fibrillation Comment: continue metoprolol 25mg q6 AC with warfarin 5mg daily (was paused in ICU given supratherpeutic), goal INR 2 -3 (7) COPD (chronic obstructive pulmonary disease) Comment: nebs and steroids for acute exacerbation (8) Chronic abdominal wound infection Comment: with superimposed infection s/p debridement at admission 06/22 5 different organisms were growing and was discharged on flagyl, bactrim. Dr. Ennis recommended referral to a tertiary center for definitive surgery. [facility] Already tried [place] where original surgery was 5 years ago off abx currently. touched base briefly with Kiko Campo who can see on Sunday if still admitted. Status and Disposition: medicine inpatient. needing further diuresis.
[2017-07-07] MEDS: Warfarin TAB(*) 5 MG PO SCH (17:01)
--- NOTE | 2017-07-07 17:15 | RAD ---
Indication: Right pleural effusion. 2 views of the chest are reviewed and compared to previous exam dated July 03, 2017. Right pleural effusion appears to be slightly improved when compared to previous exam. Lung enrique appear hyperinflated. No mediastinal shift is noted. IMPRESSION: There appears to BE improved right pleural effusion.
[2017-07-08] MEDS: Metoprolol Tartrate TAB* 25 MG PO SCH ×2 (06:30→11:44)
[2017-07-08] MEDS: Tiotropium CAP.INH* CAP.INH/18 MCG (USE ORDER SET !) INH SCH (08:06)
[2017-07-08] MEDS: Mometasone/Formoter 200/5 MDI INH SCH (08:06)
[2017-07-08] MEDS: Furosemide IV* 10 MG/ML VIAL (40 MG) IV SCH (08:12)
[2017-07-08 08:16] VITALS: BP 124/42
[2017-07-08] MEDS: Diltiazem CD CAP* 240 MG PO SCH (08:20)
[2017-07-08] MEDS: Famotidine TAB* 20 MG PO SCH (08:20)
[2017-07-08] MEDS: Aspirin Low Dose CHEW TAB* 81 MG PO SCH (08:20)
[2017-07-08] MEDS: Sertraline* 25 MG TAB PO SCH (08:20)
[2017-07-08] MEDS: predniSONE TAB* 10 MG PO SCH (08:20)
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
== END 2017-07-08 13:05 | disposition home health service (06) | DRG 208 ==
LOC: ED 19:50 → ICU 22:19 → MEDTELE 07-02 11:12
PROVIDERS: ADMIT Pediatrics; ATTEND Internal Medicine
PROC: 5A1945Z Respiratory Ventilation, 24-96 Consecutive Hours (ICD-10-PCS; principal; 2017-06-26)
PROC: 0BH17EZ Insertion of Endotracheal Airway into Trachea, Via Natural or Artificial Opening (ICD-10-PCS; 2017-06-26)
PROC: 5A09357 Assistance with Respiratory Ventilation, Less than 24 Consecutive Hours, Continuous Positive Airway Pressure (ICD-10-PCS; 2017-06-29)
PROC: 02HV33Z Insertion of Infusion Device into Superior Vena Cava, Percutaneous Approach (ICD-10-PCS; 2017-06-29)
PROC: 0W993ZZ Drainage of Right Pleural Cavity, Percutaneous Approach (ICD-10-PCS; 2017-07-04)
DX: J96.21 Acute and chronic respiratory failure with hypoxia (principal); J18.9 Pneumonia, unspecified organism; I50.43 Acute on chronic combined systolic (congestive) and diastolic (congestive) heart failure; E46 Unspecified protein-calorie malnutrition; J90 Pleural effusion, not elsewhere classified; I11.0 Hypertensive heart disease with heart failure; I48.91 Unspecified atrial fibrillation; J44.1 Chronic obstructive pulmonary disease with (acute) exacerbation; J96.02 Acute respiratory failure with hypercapnia; M19.90 Unspecified osteoarthritis, unspecified site; R31.9 Hematuria, unspecified; N40.0 Benign prostatic hyperplasia without lower urinary tract symptoms; D63.8 Anemia in other chronic diseases classified elsewhere; S31.109A Unspecified open wound of abdominal wall, unspecified quadrant without penetration into peritoneal cavity, initial encounter; L08.9 Local infection of the skin and subcutaneous tissue, unspecified; I08.0 Rheumatic disorders of both mitral and aortic valves; Z79.82 Long term (current) use of aspirin; Z79.01 Long term (current) use of anticoagulants; Z79.52 Long term (current) use of systemic steroids; Z87.01 Personal history of pneumonia (recurrent); Z82.3 Family history of stroke; Z87.891 Personal history of nicotine dependence; Z86.718 Personal history of other venous thrombosis and embolism; Z83.3 Family history of diabetes mellitus; Z99.81 Dependence on supplemental oxygen; Z68.1 Body mass index [BMI] 19.9 or less, adult
CPT/HCPCS: 32555; 36415; 36600; 70450; 71045; 71046; 71260; 80048; 80053; 80202; 80320; 81003; 81015; 82140; 82565; 82803; 83605; 83615; 83735; 84100; 84157; 84484; 84520; 85025; 85027; 85610; 85730; 87040; 87070; 87205; 87641; 88112; 89051; 93005; 93306; 94002; 94003; 94640; 94660; 94760; 99285; A9270-GY; C1751; C8929; G0480; J0330; J0696; J1160; J1940; J2543; J2704; J2920; J3010; J3370; J3475; J7512; Q9967

== ENCOUNTER 2017-07-16 06:17 | Inpatient (IN) | payer MEDICARE, OTHER ==
[2017-07-16] MEDS ORDERED: Magnesium Sulfate 2 GM IV* 2 GM/50 ML BAG IVPB ONE (06:25)
[2017-07-16] MEDS ORDERED: NS 0.9% 1000 ML* 1,000 ML IV ONE (06:25)
[2017-07-16] MEDS ORDERED: methylPREDNISolone 125 MG* 2 ML VIAL IV ONE (06:25)
[2017-07-16] MEDS ORDERED: Levofloxacin 750 MG IVPREMIX(* 750 MG/150 ML BAG IVPB ONE (06:30)
[2017-07-16] MEDS ORDERED: Albuterol/Ipratropium NEB.SOL* Albuterol 2.5 MG/Ipratropium 0.5 MG 3 ML ONE (06:30)
[2017-07-16 06:45] LABS: ABS Basophils 0.1 10^3/ul (0-0.2); ABS Eosinophils 0 10^3/ul (0-0.6); ABS Lymphocytes 0.5 10^3/ul (1.0-4.8); ABS Monocytes 0.6 10^3/ul (0-0.8); ABS Nucleated RBC 0 10^3/ul; Eosinophil % 0.1 % (0-6); Hematocrit 40 % (42-52); Hemoglobin 13.1 g/dl (14.0-18.0); Mean Corpuscular HGB Conc 33 g/dl (31-36); Mean Corpuscular Hemoglobin 29 pg (27-31); Mean Corpuscular Volume 88 fL (80-94); Mean Platelet Volume 8 um3 (7.4-10.4); Nucleated Red Blood Cells % 0.1; Platelet Count 248 10^3/ul (150-450); Red Blood Count 4.56 10^6/ul (4.0-5.4); Red Cell Distribution Width 16 % (10.5-15); White Blood Count 8.1 10^3/ul (3.5-10.8)
[2017-07-16] MEDS ORDERED: Albuterol 0.5% CONC NEB.SOL* 5 MG/ML 20 ml BOT INH SCH (07:00)
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
[2017-07-16 07:09] LABS: INR 3.41 (0.77-1.02)
[2017-07-16] MEDS: Albuterol/Ipratropium NEB.SOL* Albuterol 2.5 MG/Ipratropium 0.5 MG 3 ML INH ONE ×3 (07:22→07:24)
--- NOTE | 2017-07-16 07:52 | RAD ---
HISTORY: Shortness of breath COMPARISONS: July 07, 2017 VIEWS: 1: frontal portable view of the chest at 7:22 AM FINDINGS: LINES AND TUBES: None. CARDIOMEDIASTINAL SILHOUETTE: The cardiomediastinal silhouette is normal for portable technique. PLEURA: There is a small right pleural effusion versus chronic pleural thickening, stable. LUNG PARENCHYMA: There are several inflation. There is multifocal alveolar opacification within both lungs, predominantly within the lung bases bilaterally. This is developed compared to the previous examination. ABDOMEN: The upper abdomen is clear. There is no subphrenic gas. BONES AND SOFT TISSUES: No bone or soft tissue abnormalities are noted. IMPRESSION: 1. COPD. 2. MULTIFOCAL CONSOLIDATION THROUGHOUT BOTH LUNGS. 3. SMALL RIGHT PLEURAL EFFUSION VERSUS CHRONIC PLEURAL THICKENING, STABLE. 4. RECOMMEND FOLLOW-UP UNTIL RESOLUTION TO EXCLUDE UNDERLYING PULMONARY PARENCHYMAL PATHOLOGY.
[2017-07-16] MEDS ORDERED: Albuterol/Ipratropium NEB.SOL* Albuterol 2.5 MG/Ipratropium 0.5 MG 3 ML INH PRN (08:37)
[2017-07-16] MEDS ORDERED: Morphine INJ* 2 MG/ML 1 ML CARPUJECT IV PRN (08:46)
[2017-07-16] MEDS ORDERED: Acetaminophen TAB* 325 MG PO PRN (08:46)
[2017-07-16] MEDS: Cefepime 2 GM in Dextrose(*) 2 GM/50 ML BAG IV SCH ×2 (11:33→20:37)
[2017-07-16] MEDS: Docusate CAP* 100 MG PO SCH ×2 (11:33→20:36)
[2017-07-16] MEDS: Metoprolol Tartrate TAB* 50 mg PO SCH ×2 (11:33→20:36)
[2017-07-16] MEDS: Sertraline* 100 MG TAB PO SCH (11:34)
[2017-07-16] MEDS: Aspirin EC Low Dose* 81 MG TAB.EC PO SCH (11:34)
[2017-07-16] MEDS: Diltiazem CD CAP* 240 MG PO SCH (11:34)
[2017-07-16] MEDS: NS 0.9% 1000 ML* 1,000 ML IV SCH ×2 (11:39→23:45)
[2017-07-16] MEDS: methylPREDNISolone SOD 40 MG* 1 ML VIAL IV SCH ×2 (13:52→22:46)
[2017-07-16] MEDS: Albuterol/Ipratropium NEB.SOL* Albuterol 2.5 MG/Ipratropium 0.5 MG 3 ML INH SCH ×2 (14:00→20:01)
[2017-07-16] MEDS ORDERED: Heparin VIAL(*) 5000 UNITS/ML VIAL (FIVE THOUSAND) SUBCUT SCH (14:00)
[2017-07-16] MEDS ORDERED: Warfarin TAB(*) 5 MG PO SCH (17:00)
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
[2017-07-16] MEDS ORDERED: Spiriva Inhaler DEVICE* 1 EACH DEVICE INH SCH (23:00)
[2017-07-17] MEDS: Albuterol/Ipratropium NEB.SOL* Albuterol 2.5 MG/Ipratropium 0.5 MG 3 ML INH SCH ×2 (01:52→08:09)
[2017-07-17] MEDS: Omeprazole CAP* 20 MG PO SCH (05:51)
[2017-07-17 06:49] LABS: ABS Basophils 0 10^3/ul (0-0.2); ABS Eosinophils 0 10^3/ul (0-0.6); ABS Lymphocytes 0.3 10^3/ul (1.0-4.8); ABS Monocytes 0.2 10^3/ul (0-0.8); ABS Neutrophils 4.5 10^3/ul (1.5-7.7); ABS Nucleated RBC 0 10^3/ul; Eosinophil % 0 % (0-6); Hematocrit 38 % (42-52); Hemoglobin 12.2 g/dl (14.0-18.0); Lymphocyte % 5.5 % (25-47); Mean Corpuscular HGB Conc 32 g/dl (31-36); Mean Corpuscular Hemoglobin 29 pg (27-31); Mean Corpuscular Volume 89 fL (80-94); Mean Platelet Volume 8 um3 (7.4-10.4); Nucleated Red Blood Cells % 0.2; Platelet Count 193 10^3/ul (150-450); Red Blood Count 4.21 10^6/ul (4.0-5.4); Red Cell Distribution Width 16 % (10.5-15); White Blood Count 4.9 10^3/ul (3.5-10.8)
[2017-07-17 06:59] LABS: INR 6.06 (0.77-1.02)
[2017-07-17] MEDS: Mometasone/Formoter 200/5 MDI INH SCH ×2 (08:09→20:08)
[2017-07-17] MEDS: Tiotropium CAP.INH* CAP.INH/18 MCG (USE ORDER SET !) INH SCH (08:10)
--- NOTE | 2017-07-17 08:10 | PN ---
Subjective Date of Service: 07/17/17 Interval History: Seen with at bedside On BIPAP but denies SOB, off Bipap for some time yesterday Coughing prior to presentation but none currently Denies CP, N/V, LH or other complaints Objective Active Medications: Acetaminophen (Tylenol Tab*) 650 mg PO Q4H PRN PRN Reason: FEVER/PAIN Albuterol (Albuterol 0.5% Conc Neb.Ivcenta*) 0.5 ml INH .Q20M [facility] Albuterol/Ipratropium (Duoneb (Albuterol 2.5 Mg/Ipratropium 0.5 Mg)) 1 neb INH [id number] AWAKE [facility] Last Admin: 07/17/17 01:52 Dose: Not Given Albuterol/Ipratropium (Duoneb (Albuterol 2.5 Mg/Ipratropium 0.5 Mg)) 1 neb INH Q2H PRN PRN Reason: SOB/WHEEZING Aspirin (Aspirin Ec Low Dose*) 81 mg PO DAILY [facility] Last Admin: 07/16/17 11:34 Dose: 81 mg Device (Tiotropium Inhaler Device*) 1 each .SEE ORDER .USE w/ SPIRIVA CAPS [facility] Diltiazem HCl (Cardizem Cd Cap*) 240 mg PO QAM [facility] Last Admin: 07/16/17 11:34 Dose: 240 mg Docusate Sodium (Colace Cap*) 100 mg PO BID [facility] Last Admin: 07/16/17 20:36 Dose: 100 mg Levofloxacin/Dextrose (Levaquin 500 Mg Ivpremix(*)) 500 mg in 100 mls @ 100 mls /hr IVPB Q24H [facility] Cefepime HCl (Maxipime 2 Gm In Dextrose Duplex (*)) 2 gm in 50 mls @ 100 mls/ hr IV Q12H [facility] Last Admin: 07/16/17 20:37 Dose: 100 mls/hr Methylprednisolone Sodium Succinate (Solu-Medrol 40 Mg) 40 mg IV Q8HR [facility] Last Admin: 07/16/17 22:46 Dose: 40 mg Metoprolol Tartrate (Lopressor Tab*) 50 mg PO BID [facility] Last Admin: 07/16/17 20:36 Dose: 50 mg Mometasone Furoate/Formoterol Fumar (Dulera 200/5 Mdi*) 2 puff INH BID [facility] Morphine Sulfate (Morphine Inj (Syringe)*) 1 mg IV Q4H PRN PRN Reason: PAIN Mupirocin (Bactroban 2 % Oint*) 1 applic TOPICAL DAILY [facility] Omeprazole (Prilosec Cap*) 20 mg PO DAILY@0600 [facility] Last Admin: 07/17/17 05:51 Dose: 20 mg Sertraline HCl (Zoloft*) 100 mg PO DAILY [facility] Last Admin: 07/16/17 11:34 Dose: 100 mg Tiotropium Artesian (Spiriva Cap.Inh*) 1 cap INH DAILY [facility] Vital Signs - 8 hr 07/17/17 07/17/17 07/17/17 00:05 00:06 00:15 Temperature Pulse Rate 89 83 82 Respiratory 26 21 22 Rate Blood Pressure 110/69 (mmHg) O2 Sat by Pulse 99 94 97 Oximetry 07/17/17 07/17/17 07/17/17 00:32 00:45 01:00 Temperature Pulse Rate 93 92 Respiratory 20 25 22 Rate Blood Pressure 123/71 111/73 114/77 (mmHg) O2 Sat by Pulse 95 95 Oximetry 07/17/17 07/17/17 07/17/17 01:01 01:15 01:30 Temperature Pulse Rate 95 82 89 Respiratory 25 24 22 Rate Blood Pressure 118/75 118/84 (mmHg) O2 Sat by Pulse 94 94 95 Oximetry 07/17/17 07/17/17 07/17/17 01:45 02:00 02:15 Temperature Pulse Rate 85 99 89 Respiratory 23 27 25 Rate Blood Pressure 123/72 123/59 112/73 (mmHg) O2 Sat by Pulse 94 95 96 Oximetry 07/17/17 07/17/17 07/17/17 02:30 02:45 03:00 Temperature Pulse Rate 93 80 82 Respiratory 24 19 18 Rate Blood Pressure 113/71 111/73 111/74 (mmHg) O2 Sat by Pulse 95 94 96 Oximetry 07/17/17 07/17/17 07/17/17 03:15 03:30 03:45 Temperature Pulse Rate 92 89 99 Respiratory 21 20 21 Rate Blood Pressure 106/74 111/73 121/68 (mmHg) O2 Sat by Pulse 96 96 95 Oximetry 07/17/17 07/17/17 07/17/17 04:00 04:15 04:30 Temperature Pulse Rate 91 81 85 Respiratory 20 17 22 Rate Blood Pressure 113/63 124/74 105/64 (mmHg) O2 Sat by Pulse 96 94 96 Oximetry 07/17/17 07/17/17 07/17/17 04:45 05:00 05:01 Temperature Pulse Rate 87 91 86 Respiratory 24 17 20 Rate Blood Pressure 110/68 117/71 (mmHg) O2 Sat by Pulse 94 93 96 Oximetry 07/17/17 07/17/17 07/17/17 05:15 05:30 05:45 Temperature Pulse Rate 89 96 86 Respiratory 19 18 17 Rate Blood Pressure 119/71 124/76 128/77 (mmHg) O2 Sat by Pulse 96 95 96 Oximetry 07/17/17 07/17/17 07/17/17 06:00 06:15 06:30 Temperature Pulse Rate 96 95 Respiratory 20 28 23 Rate Blood Pressure 132/80 137/81 122/88 (mmHg) O2 Sat by Pulse 96 96 Oximetry 07/17/17 07/17/17 07/17/17 06:45 07:00 07:01 Temperature Pulse Rate 92 89 89 Respiratory 22 19 22 Rate Blood Pressure 128/90 126/96 (mmHg) O2 Sat by Pulse 96 94 96 Oximetry 07/17/17 07/17/17 07/17/17 07:15 07:30 07:58 Temperature 98.6 F Pulse Rate 82 84 Respiratory 21 19 Rate Blood Pressure 121/79 129/76 (mmHg) O2 Sat by Pulse 97 97 Oximetry Oxygen Devices in Use Now: BiPAP Appearance: chronically ill, converses in full sentences, NAD Eyes: No Scleral Icterus, PERRLA Ears/Nose/Mouth/Throat: Clear Oropharnyx, - - dry MM Neck: NL Appearance and Movements; NL JVP, Trachea Midline Respiratory: Symmetrical Chest Expansion and Respiratory Effort, - - decreased throughout, no rales/rhonchi Cardiovascular: - - IRIR, no mrg Abdominal: NL Sounds; No Tenderness; No Distention, No Hepatosplenomegaly Lymphatic: No Cervical Adenopathy Extremities: No Edema, No Clubbing, Cyanosis Skin: - - abdominal wounds healed, clean, dry Neurological: Alert and Oriented x 3 Result Diagrams: 07/17/17 06:00 07/17/17 06:00 Assess/Plan/Problems-Billing Assessment: 76 yo M h/o COPD with chronic resp failure (2L o2 and home bipap), dCHF, afib, non healing abdominal wounds, admitted beginning of june for non healing wounds with superinfection, discharged then returned after respiratory failure with bystander CPR at home (no meds, no meds) with stay notable for intubation and treatment of PNA x 10 days with broad spectrum abx, treatment of CHF with aggressive diuresis, thoracentesis returning now with sudden onset increased SOB and coughing for 12 hours prior to presentation - Patient Problems (1) Acute and chronic respiratory failure with hypoxia Comment: Baseline O2 requirement of 2-3L Lasix was completed day prior to presentation but clinically not volume overloaded CXR with patchy consolidations may be c/w PNA but in absence of preceeding fevers/chills no leukocytosis, no sick contacts. I think this is less likely bacterial PNA but given poor lung reserve will c/w abx (cefepime and levaquin) and tx for COPD exacerbation which lung exam is most consistent with. My goal is to narrow abx qucikly and repeat CXR in 1-2 days. (2) COPD (chronic obstructive pulmonary disease) Comment: nebs and steroids for acute exacerbation (3) Atrial fibrillation Comment: continue cardizem hold coumadin given supratherapeutic inr (4) Supratherapeutic INR Comment: only acute phase reactant that is elevated Hold and monitor (5) DVT prophylaxis Comment: holding Coumadin
[2017-07-17] MEDS: Cefepime 2 GM in Dextrose(*) 2 GM/50 ML BAG IV SCH (08:44)
[2017-07-17] MEDS: Sertraline* 100 MG TAB PO SCH (08:44)
[2017-07-17] MEDS: methylPREDNISolone SOD 40 MG* 1 ML VIAL IV SCH ×3 (08:44→22:41)
[2017-07-17] MEDS: Docusate CAP* 100 MG PO SCH ×2 (08:44→22:41)
[2017-07-17] MEDS: Metoprolol Tartrate TAB* 50 mg PO SCH ×2 (08:45→22:41)
[2017-07-17] MEDS: Mupirocin 2% OINT* TUBE TOPICAL SCH (08:45)
[2017-07-17] MEDS: Aspirin EC Low Dose* 81 MG TAB.EC PO SCH (08:45)
[2017-07-17] MEDS: Diltiazem CD CAP* 240 MG PO SCH (08:45)
[2017-07-17] MEDS: Levofloxacin 500 MG IVPREMIX(* 500 MG/100 ML BAG IVPB SCH (08:46)
[2017-07-17] MEDS ORDERED: Spiriva Inhaler DEVICE* 1 EACH DEVICE SCH (09:00)
[2017-07-17] MEDS ORDERED: Albuterol HFA INHALER* 8 gm MDI INH PRN (11:32)
--- NOTE | 2017-07-17 16:31 | ED ---
Damian Irwin Angela, scribed for Shmuel Dukes MD on 07/16/17 at 0718 . Progress - Progress Note Progress Note: This pt was signed out by Dr. Gordillo, pending disposition, awaiting chest XR and labs. Chest XR, as read by radiologist: IMPRESSION: 1. COPD. 2. Multifocal consolidation throughout both lungs. 3. Small right pleural effusion versus chronic pleural thickening. Stable. 4. Recommend follow-up until resolution to exclude underlying pulmonary parenchymal pathology. Dr. Dukes has reviewed this radiology report. Physical Exam: VITAL SIGNS: Reviewed. GENERAL: Patient is an elderly and fragile male who is on bipap. Pt is on severe respiratory distress. HEAD AND FACE: No signs of trauma. No ecchymosis, hematomas or skull depressions. No sinus tenderness. EYES: PERRLA, EOMI x 2, No injected conjunctiva, no nystagmus. EARS: Hearing grossly intact. Ear canals and tympanic membranes are within normal limits. MOUTH: Oropharynx within normal limits. NECK: Supple, trachea is midline, no adenopathy, no JVD, no carotid bruit, no c- spine tenderness, neck with full ROM. CHEST: Symmetric, no tenderness at palpation LUNGS: Crackles in both bases of the lunges, more left than the right. CVS: Regular rate and rhythm, S1 and S2 present, no murmurs or gallops appreciated. ABDOMEN: Soft, non-tender. No signs of distention. No rebound no guarding, and no masses palpated. Bowel sounds are normal. EXTREMITIES: FROM in all major joints, no edema, no cyanosis or clubbing. Right arm: bruising and skin tears. Bruising on left hand. NEURO: Alert and oriented x 3. No acute neurological deficits. Speech is normal and follows commands. SKIN: Dry and warm This pt was signed out by Dr. Gordillo, he reports the pt has COPD exacerbation. Dr. Gordillo ordered multiple duonebs, pt is on bipap, and is taking Levaquin and Magnesium. Test results show hemoglobin of 13.1, hematocrit of 40, ABG pH of 7.32, pCO2 of 67, pO2 of 157, O2 saturation of 99.7 on BiPAP, glucose of 201, CRP of 63, BNP of 310. I discussed pt care with Dr. Polk, hospitalist, who has agreed to admit the pt. Pt will be admitted to [facility], in stable condition, with a diagnosis of COPD exacerbation, pneumonia, hypoxia with BiPAP. Condition: Stable Disposition: Admit to [facility] Re-Evaluation - Re-Evaluation First Eval Re-Evaluation Time: 07:19 Change: Improved Comment: Pt reports feeling better. He is currently on BiPAP. Course/Dx - Diagnoses Provider Diagnoses: COPD exacerbation, Pneumonia, Hypoxia, On BiPAP - Provider Notifications Discussed Care Of Patient With: Gabriella Polk Time Discussed With Above Provider: 08:00 Instructed by Provider To: Other - I discussed pt care with Dr. Polk, hospitalist, who has agreed to admit the pt. - Critical Care Time Critical Care Time: 30-74 min - 40 minutes The documentation as recorded by the Damian brown Angela accurately reflects the service I personally performed and the decisions made by me, Shmuel Dukes MD.
--- NOTE | 2017-07-17 17:14 | PN ---
Progress Note - Progress Note Date of Service: 07/17/17 Note: SW noted that patient did not fill his medications since last discharge including meds for COPD.
[2017-07-17] MEDS: Cefepime(*) 2 GM in NS 0.9% 50 ML* 50 ML IVPB SCH (22:07)
[2017-07-18] MEDS: methylPREDNISolone SOD 40 MG* 1 ML VIAL IV SCH ×2 (05:17→21:02)
[2017-07-18] MEDS: Omeprazole CAP* 20 MG PO SCH (05:17)
[2017-07-18 06:32] LABS: ABS Basophils 0 10^3/ul (0-0.2); ABS Eosinophils 0 10^3/ul (0-0.6); ABS Lymphocytes 0.3 10^3/ul (1.0-4.8); ABS Monocytes 0.3 10^3/ul (0-0.8); ABS Neutrophils 7.4 10^3/ul (1.5-7.7); ABS Nucleated RBC 0 10^3/ul; Eosinophil % 0 % (0-6); Hematocrit 32 % (42-52); Hemoglobin 10.8 g/dl (14.0-18.0); Lymphocyte % 3.2 % (25-47); Mean Corpuscular HGB Conc 33 g/dl (31-36); Mean Corpuscular Hemoglobin 29 pg (27-31); Mean Corpuscular Volume 87 fL (80-94); Mean Platelet Volume 8 um3 (7.4-10.4); Nucleated Red Blood Cells % 0; Platelet Count 229 10^3/ul (150-450); Red Blood Count 3.73 10^6/ul (4.0-5.4); Red Cell Distribution Width 15 % (10.5-15)
[2017-07-18 07:34] LABS: INR 6.23 (0.77-1.02)
[2017-07-18 07:56] LABS: EGFR Non-African American 139.7 (>60)
[2017-07-18] MEDS: Tiotropium CAP.INH* CAP.INH/18 MCG (USE ORDER SET !) INH SCH (08:05)
[2017-07-18] MEDS: Mometasone/Formoter 200/5 MDI INH SCH ×2 (08:06→20:33)
[2017-07-18] MEDS: Cefepime(*) 2 GM in NS 0.9% 50 ML* 50 ML IVPB SCH (08:47)
[2017-07-18] MEDS: Levofloxacin 500 MG IVPREMIX(* 500 MG/100 ML BAG IVPB SCH (10:09)
[2017-07-18] MEDS: Diltiazem CD CAP* 240 MG PO SCH (10:09)
[2017-07-18] MEDS: Metoprolol Tartrate TAB* 50 mg PO SCH ×2 (10:09→21:02)
[2017-07-18] MEDS: Docusate CAP* 100 MG PO SCH ×2 (10:09→21:02)
[2017-07-18] MEDS: Mupirocin 2% OINT* TUBE TOPICAL SCH (10:09)
[2017-07-18] MEDS: Sertraline* 100 MG TAB PO SCH (10:09)
[2017-07-18] MEDS: Aspirin EC Low Dose* 81 MG TAB.EC PO SCH (10:09)
--- NOTE | 2017-07-18 10:14 | PN ---
Subjective Date of Service: 07/18/17 Interval History: Seen with at bedside. Both agree breathing better but not back to baseline non productive cough When ambulating HR increased, 80s-90s at rest indicates 1 of the inhaled medications from last admission was not picked up because of cost Objective Active Medications: Acetaminophen (Tylenol Tab*) 650 mg PO Q4H PRN PRN Reason: FEVER/PAIN Albuterol (Ventolin Hfa Inhaler*) 2 puff INH Q4H PRN PRN Reason: SOB/WHEEZING Albuterol/Ipratropium (Duoneb (Albuterol 2.5 Mg/Ipratropium 0.5 Mg)) 1 neb INH Q2H PRN PRN Reason: SOB/WHEEZING Aspirin (Aspirin Ec Low Dose*) 81 mg PO DAILY [facility] Last Admin: 07/17/17 08:45 Dose: 81 mg Device (Tiotropium Inhaler Device*) 1 each .SEE ORDER .USE w/ SPIRIVA CAPS [facility] Diltiazem HCl (Cardizem Cd Cap*) 240 mg PO QAM [facility] Last Admin: 07/17/17 08:45 Dose: 240 mg Docusate Sodium (Colace Cap*) 100 mg PO BID [facility] Last Admin: 07/17/17 22:41 Dose: 100 mg Guaifenesin/Dextromethorphan (Robitussin Dm*) 5 ml PO Q4H PRN PRN Reason: COUGH Levofloxacin/Dextrose (Levaquin 500 Mg Ivpremix(*)) 500 mg in 100 mls @ 100 mls /hr IVPB Q24H [facility] Last Admin: 07/17/17 08:46 Dose: 100 mls/hr Methylprednisolone Sodium Succinate (Solu-Medrol 40 Mg) 40 mg IV Q12HR [facility] Metoprolol Tartrate (Lopressor Tab*) 50 mg PO BID [facility] Last Admin: 07/17/17 22:41 Dose: 50 mg Mometasone Furoate/Formoterol Fumar (Dulera 200/5 Mdi*) 2 puff INH BID [facility] Last Admin: 07/18/17 08:06 Dose: 2 puff Morphine Sulfate (Morphine Inj (Syringe)*) 1 mg IV Q4H PRN PRN Reason: PAIN Mupirocin (Bactroban 2 % Oint*) 1 applic TOPICAL DAILY [facility] Last Admin: 07/17/17 08:45 Dose: 1 admin Omeprazole (Prilosec Cap*) 20 mg PO DAILY@0600 [facility] Last Admin: 07/18/17 05:17 Dose: 20 mg Sertraline HCl (Zoloft*) 100 mg PO DAILY [facility] Last Admin: 07/17/17 08:44 Dose: 100 mg Tiotropium [place] (Spiriva Cap.Inh*) 1 cap INH DAILY [facility] Last Admin: 07/18/17 08:05 Dose: 1 cap Vital Signs - 8 hr 07/18/17 07/18/17 04:00 09:01 Temperature 98.5 F 97.4 F Pulse Rate 101 113 Respiratory 16 Rate Blood Pressure 124/68 137/61 (mmHg) O2 Sat by Pulse 93 90 Oximetry Oxygen Devices in Use Now: Nasal Cannula, CPAP Appearance: older than stated age, NAD Eyes: No Scleral Icterus, PERRLA Ears/Nose/Mouth/Throat: Clear Oropharnyx, Mucous Membranes Moist Neck: NL Appearance and Movements; NL JVP, Trachea Midline Respiratory: Symmetrical Chest Expansion and Respiratory Effort, - - rales left base Cardiovascular: - - IRIR Abdominal: NL Sounds; No Tenderness; No Distention, No Hepatosplenomegaly Extremities: No Edema, No Clubbing, Cyanosis Skin: - - skin breakdown over bridge of nose, abdomen with healing wounds no erythema Neurological: Alert and Oriented x 3, - - cn2-12 intact Result Diagrams: 07/18/17 05:32 07/18/17 05:32 Assess/Plan/Problems-Billing Assessment: 76 yo M h/o COPD with chronic resp failure (2L o2 and home bipap), dCHF, afib, non healing abdominal wounds, admitted beginning of june for non healing wounds with superinfection, discharged then returned after respiratory failure with bystander CPR at home (no shocks, no meds) with stay notable for intubation and treatment of PNA x 10 days with broad spectrum abx, treatment of CHF with aggressive diuresis, thoracentesis returning now with sudden onset increased SOB and coughing for 12 hours prior to presentation - Patient Problems (1) Acute and chronic respiratory failure with hypoxia Comment: Baseline O2 requirement of 2-3L Lasix was completed day prior to presentation but clinically not volume overloaded CXR with patchy consolidations may be c/w PNA but in absence of preceeding fevers/chills no leukocytosis, no sick contacts. I think this is less likely bacterial PNA - Narrow to levaquin alone (dc cefepime 07/18) tx for COPD exacerbation which lung exam is most consistent with - taper steroids to BID Repeat CXR tomorrow (2) COPD (chronic obstructive pulmonary disease) Comment: nebs and steroids for acute exacerbation (3) Atrial fibrillation Comment: continue cardizem hold coumadin given supratherapeutic inr (4) Supratherapeutic INR Comment: only acute phase reactant that is elevated Hold and monitor (5) DVT prophylaxis Comment: holding Coumadin
[2017-07-18] MEDS ORDERED: Morphine INJ* 4 MG/ML 1 ML SYRINGE (NEW SYRINGE VERSION) IV PRN (13:50)
[2017-07-18] MEDS ORDERED: Morphine INJ* 2 MG/ML 1 ML CARPUJECT IV PRN (13:57)
[2017-07-18] MEDS: Al Hydrox/Mg Hydrox/Simet LIQ* 30 ML UDC PO PRN (19:20)
[2017-07-19] MEDS: GuaiFENesin DM* 5 ML UDC PO PRN ×2 (01:16→09:18)
[2017-07-19] MEDS: Omeprazole CAP* 20 MG PO SCH (04:36)
[2017-07-19 06:07] LABS: ABS Basophils 0 10^3/ul (0-0.2); ABS Eosinophils 0 10^3/ul (0-0.6); ABS Lymphocytes 0.2 10^3/ul (1.0-4.8); ABS Monocytes 0.3 10^3/ul (0-0.8); ABS Neutrophils 6.9 10^3/ul (1.5-7.7); ABS Nucleated RBC 0 10^3/ul; Eosinophil % 0 % (0-6); Hematocrit 37 % (42-52); Lymphocyte % 3.3 % (25-47); Mean Corpuscular HGB Conc 33 g/dl (31-36); Mean Corpuscular Hemoglobin 28 pg (27-31); Mean Corpuscular Volume 87 fL (80-94); Mean Platelet Volume 8 um3 (7.4-10.4); Nucleated Red Blood Cells % 0; Platelet Count 256 10^3/ul (150-450); Red Blood Count 4.26 10^6/ul (4.0-5.4); Red Cell Distribution Width 15 % (10.5-15); White Blood Count 7.4 10^3/ul (3.5-10.8)
[2017-07-19 06:36] LABS: INR 3.36 (0.77-1.02)
[2017-07-19] MEDS: Tiotropium CAP.INH* CAP.INH/18 MCG (USE ORDER SET !) INH SCH (07:50)
[2017-07-19] MEDS: Mometasone/Formoter 200/5 MDI INH SCH ×2 (07:50→19:24)
[2017-07-19] MEDS: Aspirin EC Low Dose* 81 MG TAB.EC PO SCH (08:03)
[2017-07-19] MEDS: Docusate CAP* 100 MG PO SCH ×2 (08:03→19:50)
[2017-07-19] MEDS: Sertraline* 100 MG TAB PO SCH (08:03)
[2017-07-19] MEDS: Diltiazem CD CAP* 240 MG PO SCH (08:03)
[2017-07-19] MEDS: Metoprolol Tartrate TAB* 50 mg PO SCH ×2 (08:03→20:50)
[2017-07-19] MEDS ORDERED: Sodium Polystyrene ORAL.SOL* 15 GM/60 ML BTL PO ONE (08:07)
--- NOTE | 2017-07-19 09:04 | RAD ---
HISTORY: Chronic and acute respiratory failure, follow-up COMPARISONS: July 16, 2017 VIEWS: 4: Frontal dual-energy and lateral views of the chest. FINDINGS: CARDIOMEDIASTINAL SILHOUETTE: The cardiomediastinal silhouette is normal. TIESHA: The tiesha are normal. PLEURA: There are small bilateral, right greater than left, pleural effusions LUNG PARENCHYMA: There is hyper inflation. Again noted is multifocal alveolar opacification throughout both lung enrique, with improved aeration of the lungs bilaterally with persistent opacification of the lower lung enrique bilaterally. ABDOMEN: The upper abdomen is clear. There is no subphrenic gas. BONES AND SOFT TISSUES: Degenerative changes are noted along the spine. OTHER: None. IMPRESSION: 1. COPD. 2. PERSISTENT, BUT IMPROVED, MULTIFOCAL CONSOLIDATION OF THE LUNGS BILATERALLY. 3. BILATERAL PLEURAL EFFUSIONS.
[2017-07-19] MEDS: Al Hydrox/Mg Hydrox/Simet LIQ* 30 ML UDC PO PRN (09:18)
[2017-07-19] MEDS: Levofloxacin 500 MG IVPREMIX(* 500 MG/100 ML BAG IVPB SCH (09:18)
[2017-07-19] MEDS: methylPREDNISolone SOD 40 MG* 1 ML VIAL IV SCH ×2 (09:18→19:50)
[2017-07-19] MEDS: Mupirocin 2% OINT* TUBE TOPICAL SCH (10:16)
--- NOTE | 2017-07-19 14:34 | CONSULT ---
Palliative / Hospice Consult - Subjective Code Status: Full Code-Needs Follow Up Advance Directives Location: No Advance Directives MOLST Part A Completed: No MOLST Part E Completed:: No HCP Completed: Yes - Evelia Simms - History or Present Illness History or Present Illness: This 76 year old man ia now hospitalized for the third time in 2 months, again with COPD exacerbation, manifesting with hypoxia (O2 sat 88%) and respiratory acidosis. He has end stage disease, is chronically on 2 L O2 at home and uses nocturnal BiPAP. During a 17 day June 2017 admission he was intubated and ventilated, and underwent thoracentesis. He has a 50 pack year history of smoking but stopped 4 years ago. Additionally, he has chronic AF, and hx of DVT with IVC filter, systolic CHF, aortic and mitral stenosis, mitral regurg and pulmonary HTN. He is on maximal medical therapy. He has parker getting weaker and has been falling. He had a cardiac arrest that was likely due to respiratory arrest in late June. He has no memory of being on the ventilator in the ICU. The patient tends a herd of horses and this is his "whole life," and what he really would like to get back to. When I asked what he understood the purpose of his hospitalization to be, he said it was to find a medication that would allow him to breathe and live longer. Lab Values: Abnormal Lab Results 07/18/17 07/18/17 07/19/17 14:43 16:47 05:48 WBC RBC Hgb Hct MCV MCH MCHC RDW Plt Count MPV Neut % (Auto) Lymph % (Auto) [place] % (Auto) Eos % (Auto) Baso % (Auto) Absolute Neuts (auto) Absolute Lymphs (auto) Absolute Monos (auto) Absolute Eos (auto) Absolute Basos (auto) Absolute Nucleated RBC Nucleated RBC % INR (Anticoag Therapy) 3.36 H Sodium Potassium Chloride Carbon Dioxide Anion Gap BUN Creatinine Est GFR ( Amer) Est GFR (Non-Af Amer) BUN/Creatinine Ratio Glucose Calcium Troponin I 0.01 0.01 07/19/17 07/19/17 05:48 05:48 WBC 7.4 RBC 4.26 Hgb 12.0 L Hct 37 L MCV 87 MCH 28 MCHC 33 RDW 15 Plt Count 256 MPV 8 Neut % (Auto) 92.7 H Lymph % (Auto) 3.3 L [place] % (Auto) 4.0 Eos % (Auto) 0 Baso % (Auto) 0 Absolute Neuts (auto) 6.9 Absolute Lymphs (auto) 0.2 L Absolute Monos (auto) 0.3 Absolute Eos (auto) 0 Absolute Basos (auto) 0 Absolute Nucleated RBC 0 Nucleated RBC % 0 INR (Anticoag Therapy) Sodium 143 Potassium 5.7 H D Chloride 103 Carbon Dioxide 39 H Anion Gap 1 L BUN 36 H Creatinine 0.67 Est GFR ( Amer) 149.1 Est GFR (Non-Af Amer) 116.0 BUN/Creatinine Ratio 53.7 H Glucose 158 H Calcium 8.9 Troponin I Laboratory Last Values WBC 7.4 10^3/ul (3.5-10.8) 07/19/17 05:48 RBC 4.26 10^6/ul (4.0-5.4) 07/19/17 05:48 Hgb 12.0 g/dl (14.0-18.0) L 07/19/17 05:48 Hct 37 % (42-52) L 07/19/17 05:48 MCV 87 fL (80-94) 07/19/17 05:48 MCH 28 pg (27-31) 07/19/17 05:48 MCHC 33 g/dl (31-36) 07/19/17 05:48 RDW 15 % (10.5-15) 07/19/17 05:48 Plt Count 256 10^3/ul (150-450) 07/19/17 05:48 MPV 8 um3 (7.4-10.4) 07/19/17 05:48 Neut % (Auto) 92.7 % (38-83) H 07/19/17 05:48 Lymph % (Auto) 3.3 % (25-47) L 07/19/17 05:48 [place] % (Auto) 4.0 % (0-7) 07/19/17 05:48 Eos % (Auto) 0 % (0-6) 07/19/17 05:48 Baso % (Auto) 0 % (0-2) 07/19/17 05:48 Absolute Neuts (auto) 6.9 10^3/ul (1.5-7.7) 07/19/17 05:48 Absolute Lymphs (auto) 0.2 10^3/ul (1.0-4.8) L 07/19/17 05:48 Absolute Monos (auto) 0.3 10^3/ul (0-0.8) 07/19/17 05:48 Absolute Eos (auto) 0 10^3/ul (0-0.6) 07/19/17 05:48 Absolute Basos (auto) 0 10^3/ul (0-0.2) 07/19/17 05:48 Absolute Nucleated RBC 0 10^3/ul 07/19/17 05:48 Nucleated RBC % 0 07/19/17 05:48 INR (Anticoag Therapy) 3.36 (0.77-1.02) H 07/19/17 05:48 APTT 49.4 seconds (26.0-36.3) H 07/16/17 06:30 Patient Temperature Not Reportable 07/16/17 09:55 ABG pH 7.37 (7.35-7.45) 07/16/17 09:55 ABG pH (Temp Correct) Not Reportable 07/16/17 09:55 ABG pCO2 63 mmHg (35-45) H 07/16/17 09:55 ABG pCO2 (Temp Corrct Not Reportable 07/16/17 09:55 ABG pO2 97 mmHg (80-100) 07/16/17 09:55 ABG pO2 (Temp Correct Not Reportable 07/16/17 09:55 ABG HCO3 32.1 mmol/L (19-31) H 07/16/17 09:55 ABG O2 Saturation 99.6 % (95-98) H 07/16/17 09:55 ABG Base Excess 9.2 (-2.0-2.0) H 07/16/17 09:55 Respiration Rate 12 07/16/17 09:55 Ventilator Type Not Reportable 07/16/17 09:55 Vent Mode Not Reportable 07/16/17 09:55 FiO2 40 07/16/17 09:55 Inspiratory Time Not Reportable 07/16/17 09:55 PEEP Not Reportable 07/16/17 09:55 Pressure Support Not Reportable 07/16/17 09:55 Pressure Control Not Reportable 07/16/17 09:55 EPAP 6 07/16/17 09:55 IPAP 12 07/16/17 09:55 BiPAP s/t 07/16/17 09:55 Sodium 143 mmol/L (133-145) 07/19/17 05:48 Potassium 5.7 mmol/L (3.5-5.0) H D 07/19/17 05:48 Chloride 103 mmol/L (101-111) 07/19/17 05:48 Carbon Dioxide 39 mmol/L (22-32) H 07/19/17 05:48 Anion Gap 1 mmol/L (2-11) L 07/19/17 05:48 BUN 36 mg/dL (6-24) H 07/19/17 05:48 Creatinine 0.67 mg/dL (0.67-1.17) 07/19/17 05:48 Est GFR ( Amer) 149.1 (>60) 07/19/17 05:48 Est GFR (Non-Af Amer) 116.0 (>60) 07/19/17 05:48 BUN/Creatinine Ratio 53.7 (8-20) H 07/19/17 05:48 Glucose 158 mg/dL (70-100) H 07/19/17 05:48 Lactic Acid 1.7 mmol/L (0.5-2.0) 07/16/17 06:30 Calcium 8.9 mg/dL (8.6-10.3) 07/19/17 05:48 Total Bilirubin 0.70 mg/dL (0.2-1.0) 07/16/17 06:30 AST 21 U/L (13-39) 07/16/17 06:30 ALT 22 U/L (7-52) 07/16/17 06:30 Alkaline Phosphatase 89 U/L (34-104) 07/16/17 06:30 Troponin I 0.01 ng/mL (<0.04) 07/18/17 16:47 C-Reactive Protein 63.06 mg/L (< 5.00) H 07/16/17 06:30 B-Natriuretic Peptide 310 pg/mL (-100) H 07/16/17 06:30 Total Protein 6.4 g/dL (6.4-8.9) 07/16/17 06:30 Albumin 3.4 g/dL (3.2-5.2) 07/16/17 06:30 Globulin 3.0 g/dL (2-4) 07/16/17 06:30 Albumin/Globulin Ratio 1.1 (1-3) 07/16/17 06:30 Procalcitonin 0.1 ng/mL (<0.6) 07/17/17 09:40 - Objective Active Medications: Acetaminophen (Tylenol Tab*) 650 mg PO Q4H PRN PRN Reason: FEVER/PAIN Al Hydrox/Mg Hydrox/Simethicone (Maalox Plus*) 30 ml PO Q2H PRN PRN Reason: HEARTBURN Last Admin: 07/19/17 09:18 Dose: 30 ml Albuterol (Ventolin Hfa Inhaler*) 2 puff INH Q4H PRN PRN Reason: SOB/WHEEZING Albuterol/Ipratropium (Duoneb (Albuterol 2.5 Mg/Ipratropium 0.5 Mg)) 1 neb INH Q2H PRN PRN Reason: SOB/WHEEZING Aspirin (Aspirin Ec Low Dose*) 81 mg PO DAILY [facility] Last Admin: 07/19/17 08:03 Dose: 81 mg Device (Tiotropium Inhaler Device*) 1 each .SEE ORDER .USE w/ SPIRIVA CAPS [facility] Diltiazem HCl (Cardizem Cd Cap*) 240 mg PO QAM [facility] Last Admin: 07/19/17 08:03 Dose: 240 mg Docusate Sodium (Colace Cap*) 100 mg PO BID [facility] Last Admin: 07/19/17 08:03 Dose: 100 mg Guaifenesin/Dextromethorphan (Robitussin Dm*) 5 ml PO Q4H PRN PRN Reason: COUGH Last Admin: 07/19/17 09:18 Dose: 5 ml Levofloxacin/Dextrose (Levaquin 500 Mg Ivpremix(*)) 500 mg in 100 mls @ 100 mls /hr IVPB Q24H [facility] Last Admin: 07/19/17 09:18 Dose: 100 mls/hr Methylprednisolone Sodium Succinate (Solu-Medrol 40 Mg) 40 mg IV Q12HR [facility] Last Admin: 07/19/17 09:18 Dose: 40 mg Metoprolol Tartrate (Lopressor Tab*) 50 mg PO BID [facility] Last Admin: 07/19/17 08:03 Dose: 50 mg Mometasone Furoate/Formoterol Fumar (Dulera 200/5 Mdi*) 2 puff INH BID [facility] Last Admin: 07/19/17 07:50 Dose: 2 puff Morphine Sulfate (Morphine Inj (Syringe)*) 2 mg IV Q4H PRN PRN Reason: PAIN Last Admin: 07/18/17 14:06 Dose: 2 mg Mupirocin (Bactroban 2 % Oint*) 1 applic TOPICAL DAILY [facility] Last Admin: 07/19/17 10:16 Dose: 1 admin Omeprazole (Prilosec Cap*) 20 mg PO DAILY@0600 [facility] Last Admin: 07/19/17 04:36 Dose: 20 mg Sertraline HCl (Zoloft*) 100 mg PO DAILY [facility] Last Admin: 07/19/17 08:03 Dose: 100 mg Tiotropium [place] (Spiriva Cap.Inh*) 1 cap INH DAILY [facility] Last Admin: 07/19/17 07:50 Dose: 1 cap Vital Signs: Vital Signs: Temp Pulse Resp BP Pulse Ox 98.3 F 96 18 114/54 98 07/19/17 11:21 07/19/17 11:21 07/19/17 11:21 07/19/17 11:21 07/19/17 11:21 Patient Weight: Weight 136 lb 12.8 oz Intake and Output: Intake & Output 07/17/17 07/18/17 07/19/17 07/20/17 06:59 06:59 06:59 06:59 Intake Total 2220 1300 Output Total 800 400 600 Balance 1420 900 -600 Weight 132 lb 15.02 oz 136 lb 12.8 oz Intake: IV Fluids 1425 150 NS (0.9%) 1425 150 IVPB 105 50 NS (0.9%) 105 50 Oral 690 1100 Output: Urine 800 400 600 Other: Estimated Void Medium Medium Date of Last Bowel 07/16/17 Movement # Bowel Movements 1 # Voids 3 0 ADLs: Meal Record Start: 07/16/17 08: 41 Freq: , Status: Inactive Protocol: Document 07/16/17 13:00 [id number] (Rec: 07/16/17 14:07 [id number] ICU-C10) Document 07/17/17 09:00 [id number] (Rec: 07/17/17 10:38 [id number] ICU-C16) Document 07/17/17 13:00 [id number] (Rec: 07/17/17 13:17 [id number] ICU-C16) Document 07/17/17 18:00 [id number] (Rec: 07/17/17 19:46 [id number] ICU-C10) Intake and Output Start: 07/16/17 08: 41 Freq: 06,14,22 Status: Inactive Protocol: Document 07/16/17 14:00 [id number] (Rec: 07/16/17 14:09 [id number] ICU-C10) Document 07/16/17 19:38 [id number] (Rec: 07/16/17 19:38 [id number] ICU-C11) Document 07/16/17 22:00 [id number] (Rec: 07/16/17 22:49 [id number] ICU-M06) Document 07/17/17 02:14 [id number] (Rec: 07/17/17 02:14 [id number] ICU-C15) Document 07/17/17 06:00 [id number] (Rec: 07/17/17 06:04 [id number] ICU-M06) Document 07/17/17 10:30 [id number] (Rec: 07/17/17 13:46 [id number] ICU-C16) Document 07/17/17 13:43 [id number] (Rec: 07/17/17 13:44 [id number] ICU-C16) Document 07/17/17 18:20 [id number] (Rec: 07/17/17 18:25 [id number] ICU-C10) Document 07/17/17 22:00 [id number] (Rec: 07/17/17 22:32 [id number] MED-C11) Intake and Output Start: 07/18/17 14: 33 Freq: Status: Active Protocol: Document 07/18/17 14:00 [id number] (Rec: 07/18/17 14:34 [id number] MED-C02) Created 07/18/17 14:33 [id number] (Rec: 07/18/17 14:33 [id number] MED-C02) General Impression: Pleasant, thoughtful man in NAD, makes good eye contact. Head: Symmetrical Eyes: No Scleral Icterus, PERRLA Ears/Nose/Mouth/Throat: Clear Oropharnyx, Mucous Membranes Moist Neck: NL Appearance and Movements; NL JVP, Trachea Midline Cardiovascular: - - irregularly irregular, systolic murmur at LUSB. Respiratory: Symmetrical Chest Expansion and Respiratory Effort - Scattered wheezes and distant BS Abdominal: NL Sounds; No Tenderness; No Distention, No Hepatosplenomegaly, - - Healing ventral midline scar. Extremities: No Edema, No Clubbing, Cyanosis Neurological: Alert and Oriented x 3, - - Assessment Assessment: This 76 year old man has end-satge COPD and is on maximal medical therapy. I educated him about this reality, and explained that there is nothing more that can be done by the hospital for his failing lungs. The natural history of this disease would forecast more and more frequent hospitalizations for longer and longer and longer duration, culminating in mechanical ventilation in the ICU. The patient stated he does NOT want this outcome but then questioned what an alternative could be. I described the Medicare Hospice benefit that would allow hi to remain at home and have nursing and other supportive care there, and comfort medications that would ease the sense of air hunger. He was agreeable to this, but said he wanted to discuss it with his here. Unfortunately I have been unable to reach her by phone, and left a message for her to call me. I think he will be agreeable to completing a MOLST form specifying comfort measures, and he will certainly be appropriate for home hospice services, with a primary diagnosis of COPD and a secondary of hypoxic hypercarbic respiratory failure. Thanks for suggesting a palliative consult on this very ill man. - Plan Consult Plan (MU): Hospice - Time On Unit Date of Evaluation: 07/19/17 Hospice Consult Time in: 13:45 Hospice Consult Time Out: 14:45 Hospice Consult Time Total: 60 > 50% of Time Spend In Counseling or Coordinating Care: Yes
[2017-07-19 15:15] LABS: EGFR Non-African American 166.4 (>60)
--- NOTE | 2017-07-19 17:43 | PN ---
Subjective Date of Service: 07/19/17 Interval History: Reports pain when swallowing like something gets stuck in his throat. Worse with solids versus liquids Feels breathing is improving and is expectorating sputum now whereas previously he could not No other complaints Objective Active Medications: Acetaminophen (Tylenol Tab*) 650 mg PO Q4H PRN PRN Reason: FEVER/PAIN Al Hydrox/Mg Hydrox/Simethicone (Maalox Plus*) 30 ml PO Q2H PRN PRN Reason: HEARTBURN Last Admin: 07/19/17 09:18 Dose: 30 ml Albuterol (Ventolin Hfa Inhaler*) 2 puff INH Q4H PRN PRN Reason: SOB/WHEEZING Albuterol/Ipratropium (Duoneb (Albuterol 2.5 Mg/Ipratropium 0.5 Mg)) 1 neb INH Q2H PRN PRN Reason: SOB/WHEEZING Aspirin (Aspirin Ec Low Dose*) 81 mg PO DAILY [facility] Last Admin: 07/19/17 08:03 Dose: 81 mg Device (Tiotropium Inhaler Device*) 1 each .SEE ORDER .USE w/ SPIRIVA CAPS [facility] Diltiazem HCl (Cardizem Cd Cap*) 240 mg PO QAM [facility] Last Admin: 07/19/17 08:03 Dose: 240 mg Docusate Sodium (Colace Cap*) 100 mg PO BID [facility] Last Admin: 07/19/17 08:03 Dose: 100 mg Guaifenesin/Dextromethorphan (Robitussin Dm*) 5 ml PO Q4H PRN PRN Reason: COUGH Last Admin: 07/19/17 09:18 Dose: 5 ml Levofloxacin/Dextrose (Levaquin 500 Mg Ivpremix(*)) 500 mg in 100 mls @ 100 mls /hr IVPB Q24H [facility] Last Admin: 07/19/17 09:18 Dose: 100 mls/hr Methylprednisolone Sodium Succinate (Solu-Medrol 40 Mg) 40 mg IV Q12HR [facility] Last Admin: 07/19/17 09:18 Dose: 40 mg Metoprolol Tartrate (Lopressor Tab*) 50 mg PO BID [facility] Last Admin: 07/19/17 08:03 Dose: 50 mg Mometasone Furoate/Formoterol Fumar (Dulera 200/5 Mdi*) 2 puff INH BID [facility] Last Admin: 07/19/17 07:50 Dose: 2 puff Morphine Sulfate (Morphine Inj (Syringe)*) 2 mg IV Q4H PRN PRN Reason: PAIN Last Admin: 07/18/17 14:06 Dose: 2 mg Mupirocin (Bactroban 2 % Oint*) 1 applic TOPICAL DAILY [facility] Last Admin: 07/19/17 10:16 Dose: 1 admin Omeprazole (Prilosec Cap*) 20 mg PO DAILY@0600 [facility] Last Admin: 07/19/17 04:36 Dose: 20 mg Sertraline HCl (Zoloft*) 100 mg PO DAILY [facility] Last Admin: 07/19/17 08:03 Dose: 100 mg Tiotropium [place] (Spiriva Cap.Inh*) 1 cap INH DAILY [facility] Last Admin: 07/19/17 07:50 Dose: 1 cap Vital Signs - 8 hr 07/19/17 07/19/17 07/19/17 11:21 14:58 16:00 Temperature 98.3 F 98.0 F Pulse Rate 96 97 Respiratory 18 20 Rate Blood Pressure 114/54 129/67 (mmHg) O2 Sat by Pulse 98 97 97 Oximetry Oxygen Devices in Use Now: Nasal Cannula Appearance: older than stated age, NAD Eyes: No Scleral Icterus, PERRLA Ears/Nose/Mouth/Throat: Clear Oropharnyx, Mucous Membranes Moist Neck: NL Appearance and Movements; NL JVP, Trachea Midline Respiratory: Symmetrical Chest Expansion and Respiratory Effort, - - decreased throughout Cardiovascular: - - IRIR Abdominal: NL Sounds; No Tenderness; No Distention, No Hepatosplenomegaly Lymphatic: No Cervical Adenopathy Neurological: Alert and Oriented x 3 Result Diagrams: 07/19/17 05:48 07/19/17 14:38 Assess/Plan/Problems-Billing Assessment: 76 yo M h/o COPD with chronic resp failure (2L o2 and home bipap), dCHF, afib, non healing abdominal wounds, admitted beginning of june for non healing wounds with superinfection, discharged then returned after respiratory failure with bystander CPR at home (no shocks, no meds) with stay notable for intubation and treatment of PNA x 10 days with broad spectrum abx, treatment of CHF with aggressive diuresis, thoracentesis returning now with sudden onset increased SOB and coughing for 12 hours prior to presentation - Patient Problems (1) Acute and chronic respiratory failure with hypoxia Comment: Baseline O2 requirement of 2-3L CXR remains with patchy consolidations but improving on abx, steroids. Procalcitonin nominal. I think this is less likely bacterial PNA but with appearance of CXR and tenuous respiratory status will c/w levaquin alone (dc cefepime 07/18) tx for COPD exacerbation which lung exam is most consistent with - taper steroids to BID (2) COPD (chronic obstructive pulmonary disease) Comment: nebs and steroids for acute exacerbation (3) Atrial fibrillation Comment: continue cardizem hold coumadin given supratherapeutic inr (4) Supratherapeutic INR Comment: only acute phase reactant that is elevated Hold and monitor (5) DVT prophylaxis Comment: holding Coumadin
[2017-07-19] MEDS ORDERED: Metoprolol Tartrate IV* 1 MG/ML 5 ML VIAL IV ONE (19:11)
[2017-07-20 04:22] LABS: ABS Basophils 0 10^3/ul (0-0.2); ABS Eosinophils 0 10^3/ul (0-0.6); ABS Lymphocytes 0.2 10^3/ul (1.0-4.8); ABS Monocytes 0.4 10^3/ul (0-0.8); ABS Neutrophils 7.5 10^3/ul (1.5-7.7); ABS Nucleated RBC 0 10^3/ul; Eosinophil % 0 % (0-6); Hematocrit 36 % (42-52); Hemoglobin 11.9 g/dl (14.0-18.0); Lymphocyte % 2.1 % (25-47); Mean Corpuscular HGB Conc 33 g/dl (31-36); Mean Corpuscular Hemoglobin 28 pg (27-31); Mean Corpuscular Volume 87 fL (80-94); Mean Platelet Volume 8 um3 (7.4-10.4); Nucleated Red Blood Cells % 0; Platelet Count 279 10^3/ul (150-450); Red Blood Count 4.17 10^6/ul (4.0-5.4); Red Cell Distribution Width 15 % (10.5-15); White Blood Count 8.1 10^3/ul (3.5-10.8)
[2017-07-20 04:28] LABS: INR 2.18 (0.77-1.02)
[2017-07-20 04:38] LABS: EGFR Non-African American 145.6 (>60)
[2017-07-20] MEDS: Omeprazole CAP* 20 MG PO SCH (05:40)
[2017-07-20] MEDS: Mometasone/Formoter 200/5 MDI INH SCH ×2 (07:32→20:08)
[2017-07-20] MEDS: Tiotropium CAP.INH* CAP.INH/18 MCG (USE ORDER SET !) INH SCH (07:32)
[2017-07-20] MEDS: Levofloxacin 500 MG IVPREMIX(* 500 MG/100 ML BAG IVPB SCH (08:29)
[2017-07-20] MEDS: methylPREDNISolone SOD 40 MG* 1 ML VIAL IV SCH ×2 (08:29→22:30)
[2017-07-20] MEDS: Metoprolol Tartrate TAB* 50 mg PO SCH ×2 (08:30→19:45)
[2017-07-20] MEDS: Docusate CAP* 100 MG PO SCH ×2 (08:30→22:30)
[2017-07-20] MEDS: Sertraline* 100 MG TAB PO SCH (08:30)
[2017-07-20] MEDS: Diltiazem CD CAP* 240 MG PO SCH (08:30)
[2017-07-20] MEDS: Aspirin EC Low Dose* 81 MG TAB.EC PO SCH (08:30)
[2017-07-20] MEDS: Mupirocin 2% OINT* TUBE TOPICAL SCH (08:30)
--- NOTE | 2017-07-20 11:45 | RAD ---
HISTORY: Dysphagia COMPARISONS: None TECHNIQUE: A double contrast fluoroscopic study was performed of the esophagus. Effervescent granules were administered, followed by thin and thick liquid barium under fluoroscopic observation. Multiple digital spot images were obtained. Total fluoroscopy time is 1.6 minutes. FINDINGS: ESOPHAGUS: The esophagus is normal in contour, course, and caliber. There is no stricture or web. Contrast passes easily through the gastroesophageal junction into the stomach. There is presbyesophagus with mild dysmotility. STOMACH: The visualized portion of the stomach is unremarkable . OTHER: Contrast is noted within the laryngeal vestibule suggestive of penetration without appreciable aspiration.. IMPRESSION: 1. PRESBYESOPHAGUS WITH MILD ESOPHAGEAL DYSMOTILITY. 2. CONTRAST IS NOTED WITHIN THE LARYNGEAL VESTIBULE CONSISTENT WITH PENETRATION, WITHOUT APPRECIABLE ASPIRATION. CONSIDER EVALUATION OF SWALLOW BY SPEECH PATHOLOGY CPT II Codes: 6045F
--- NOTE | 2017-07-20 17:15 | PN ---
Subjective Date of Service: 07/20/17 Interval History: Seen with daughter Feels better but more fatigue No additional pain with swallowing Discussed goals of care and neither are prepared to complete a MOLST at this time Producing more phlegm Objective Active Medications: Acetaminophen (Tylenol Tab*) 650 mg PO Q4H PRN PRN Reason: FEVER/PAIN Al Hydrox/Mg Hydrox/Simethicone (Maalox Plus*) 30 ml PO Q2H PRN PRN Reason: HEARTBURN Last Admin: 07/19/17 09:18 Dose: 30 ml Albuterol (Ventolin Hfa Inhaler*) 2 puff INH Q4H PRN PRN Reason: SOB/WHEEZING Albuterol/Ipratropium (Duoneb (Albuterol 2.5 Mg/Ipratropium 0.5 Mg)) 1 neb INH Q2H PRN PRN Reason: SOB/WHEEZING Aspirin (Aspirin Ec Low Dose*) 81 mg PO DAILY [facility] Last Admin: 07/20/17 08:30 Dose: 81 mg Device (Tiotropium Inhaler Device*) 1 each .SEE ORDER .USE w/ SPIRIV[employer]S [facility] Diltiazem HCl (Cardizem Cd Cap*) 240 mg PO QAM [facility] Last Admin: 07/20/17 08:30 Dose: 240 mg Docusate Sodium (Colace Cap*) 100 mg PO BID [facility] Last Admin: 07/20/17 08:30 Dose: 100 mg Guaifenesin/Dextromethorphan (Robitussin Dm*) 5 ml PO Q4H PRN PRN Reason: COUGH Last Admin: 07/19/17 09:18 Dose: 5 ml Levofloxacin/Dextrose (Levaquin 500 Mg Ivpremix(*)) 500 mg in 100 mls @ 100 mls /hr IVPB Q24H [facility] Last Admin: 07/20/17 08:29 Dose: 100 mls/hr Methylprednisolone Sodium Succinate (Solu-Medrol 40 Mg) 40 mg IV Q12HR [facility] Last Admin: 07/20/17 08:29 Dose: 40 mg Metoprolol Tartrate (Lopressor Tab*) 50 mg PO BID [facility] Last Admin: 07/20/17 08:30 Dose: 50 mg Mometasone Furoate/Formoterol Fumar (Dulera 200/5 Mdi*) 2 puff INH BID [facility] Last Admin: 07/20/17 07:32 Dose: 2 puff Morphine Sulfate (Morphine Inj (Syringe)*) 2 mg IV Q4H PRN PRN Reason: PAIN Last Admin: 07/18/17 14:06 Dose: 2 mg Mupirocin (Bactroban 2 % Oint*) 1 applic TOPICAL DAILY [facility] Last Admin: 07/20/17 08:30 Dose: 1 admin Omeprazole (Prilosec Cap*) 20 mg PO DAILY@0600 [facility] Last Admin: 07/20/17 05:40 Dose: Not Given Sertraline HCl (Zoloft*) 150 mg PO DAILY [facility] Last Admin: 07/20/17 08:30 Dose: 150 mg Tiotropium [place] (Spiriva Cap.Inh*) 1 cap INH DAILY [facility] Last Admin: 07/20/17 07:32 Dose: 1 cap Vital Signs - 8 hr 07/20/17 07/20/17 12:10 15:32 Temperature 98.0 F 98.0 F Pulse Rate 82 110 Respiratory 18 18 Rate Blood Pressure 118/57 120/51 (mmHg) O2 Sat by Pulse 98 96 Oximetry Oxygen Devices in Use Now: Nasal Cannula Appearance: older than stated age, NAD Eyes: No Scleral Icterus, PERRLA Ears/Nose/Mouth/Throat: NL Teeth, Lips, Gums, Clear Oropharnyx, - - dry MM Neck: NL Appearance and Movements; NL JVP, Trachea Midline Respiratory: Symmetrical Chest Expansion and Respiratory Effort, - - decreased throughout, mild expiratory wheeze Cardiovascular: RRR Abdominal: NL Sounds; No Tenderness; No Distention, No Hepatosplenomegaly Lymphatic: No Cervical Adenopathy Extremities: No Edema Neurological: Alert and Oriented x 3 Result Diagrams: 07/20/17 04:10 07/20/17 04:10 Microbiology and Other Data: Microbiology 07/20/17 11:40 Gram Stain - Final Sputum Assess/Plan/Problems-Billing Assessment: 76 yo M h/o COPD with chronic resp failure (2L o2 and home bipap), dCHF, afib, non healing abdominal wounds, admitted beginning of june for non healing wounds with superinfection, discharged then returned after respiratory failure with bystander CPR at home (no shocks, no meds) with stay notable for intubation and treatment of PNA x 10 days with broad spectrum abx, treatment of CHF with aggressive diuresis, thoracentesis returning now with sudden onset increased SOB and coughing for 12 hours prior to presentation with CXR concerning for PNA - Patient Problems (1) Acute and chronic respiratory failure with hypoxia Comment: Baseline O2 requirement of 2-3L CXR remains with patchy consolidations but improving on abx, steroids. Procalcitonin nominal. I think this is less likely bacterial PNA but with appearance of CXR and tenuous respiratory status will c/w levaquin alone (dc cefepime 07/18) tx for COPD exacerbation which lung exam is most consistent with - taper steroids to BID (2) COPD (chronic obstructive pulmonary disease) Comment: nebs and steroids for acute exacerbation (3) Atrial fibrillation Comment: continue cardizem restart coumadin (4) Supratherapeutic INR Comment: resolved (5) Esophageal dysfunction Comment: only mild on esophagram swallow eval no recurrent pain on swallowing since 07/19/16 (6) DVT prophylaxis Comment: Coumadin
[2017-07-20] MEDS: Warfarin TAB(*) 5 MG PO SCH (17:52)
[2017-07-21] MEDS: Omeprazole CAP* 20 MG PO SCH (05:21)
[2017-07-21] MEDS: Tiotropium CAP.INH* CAP.INH/18 MCG (USE ORDER SET !) INH SCH (08:39)
[2017-07-21] MEDS: Mometasone/Formoter 200/5 MDI INH SCH ×2 (08:40→20:01)
[2017-07-21] MEDS: Metoprolol Tartrate TAB* 50 mg PO SCH ×2 (08:54→20:24)
[2017-07-21] MEDS: Diltiazem CD CAP* 240 MG PO SCH (08:54)
[2017-07-21] MEDS: Levofloxacin 500 MG IVPREMIX(* 500 MG/100 ML BAG IVPB SCH (08:54)
[2017-07-21] MEDS: methylPREDNISolone SOD 40 MG* 1 ML VIAL IV SCH ×2 (08:54→20:24)
[2017-07-21] MEDS: Aspirin EC Low Dose* 81 MG TAB.EC PO SCH (08:54)
[2017-07-21] MEDS: Docusate CAP* 100 MG PO SCH ×2 (08:54→20:24)
[2017-07-21] MEDS: Sertraline* 100 MG TAB PO SCH (08:55)
[2017-07-21] MEDS: Mupirocin 2% OINT* TUBE TOPICAL SCH (08:55)
--- NOTE | 2017-07-21 14:46 | PN ---
Subjective Date of Service: 07/21/17 Interval History: no overnight events, wearing bipap because he was napping. says he feels "not too bad" today. no cough, no fevers, no chest pain, some shortness of breath, no orthopnea. Objective Active Medications: Acetaminophen (Tylenol Tab*) 650 mg PO Q4H PRN PRN Reason: FEVER/PAIN Al Hydrox/Mg Hydrox/Simethicone (Maalox Plus*) 30 ml PO Q2H PRN PRN Reason: HEARTBURN Last Admin: 07/19/17 09:18 Dose: 30 ml Albuterol (Ventolin Hfa Inhaler*) 2 puff INH Q4H PRN PRN Reason: SOB/WHEEZING Albuterol/Ipratropium (Duoneb (Albuterol 2.5 Mg/Ipratropium 0.5 Mg)) 1 neb INH Q2H PRN PRN Reason: SOB/WHEEZING Aspirin (Aspirin Ec Low Dose*) 81 mg PO DAILY [facility] Last Admin: 07/21/17 08:54 Dose: 81 mg Device (Tiotropium Inhaler Device*) 1 each .SEE ORDER .USE w/ SPIRIVA CAPS [facility] Diltiazem HCl (Cardizem Cd Cap*) 240 mg PO QAM [facility] Last Admin: 07/21/17 08:54 Dose: 240 mg Docusate Sodium (Colace Cap*) 100 mg PO BID [facility] Last Admin: 07/21/17 08:54 Dose: 100 mg Guaifenesin/Dextromethorphan (Robitussin Dm*) 5 ml PO Q4H PRN PRN Reason: COUGH Last Admin: 07/19/17 09:18 Dose: 5 ml Levofloxacin/Dextrose (Levaquin 500 Mg Ivpremix(*)) 500 mg in 100 mls @ 100 mls /hr IVPB Q24H [facility] Last Admin: 07/21/17 08:54 Dose: 100 mls/hr Methylprednisolone Sodium Succinate (Solu-Medrol 40 Mg) 40 mg IV Q12HR [facility] Last Admin: 07/21/17 08:54 Dose: 40 mg Metoprolol Tartrate (Lopressor Tab*) 50 mg PO BID [facility] Last Admin: 07/21/17 08:54 Dose: 50 mg Mometasone Furoate/Formoterol Fumar (Dulera 200/5 Mdi*) 2 puff INH BID [facility] Last Admin: 07/21/17 08:40 Dose: 2 puff Morphine Sulfate (Morphine Inj (Syringe)*) 2 mg IV Q4H PRN PRN Reason: PAIN Last Admin: 07/18/17 14:06 Dose: 2 mg Mupirocin (Bactroban 2 % Oint*) 1 applic TOPICAL DAILY [facility] Last Admin: 07/21/17 08:55 Dose: 1 admin Omeprazole (Prilosec Cap*) 20 mg PO DAILY@0600 [facility] Last Admin: 07/21/17 05:21 Dose: 20 mg Sertraline HCl (Zoloft*) 150 mg PO DAILY [facility] Last Admin: 07/21/17 08:55 Dose: 150 mg Tiotropium [place] (Spiriva Cap.Inh*) 1 cap INH DAILY [facility] Last Admin: 07/21/17 08:39 Dose: 1 cap Warfarin Sodium (Coumadin Tab(*)) 5 mg PO DAILY@1700 [facility] PRN Reason: Protocol Last Admin: 07/20/17 17:52 Dose: 5 mg Vital Signs - 8 hr 07/21/17 07/21/17 07/21/17 08:00 08:21 08:44 Temperature 97.7 F Pulse Rate 115 109 Respiratory 16 18 16 Rate Blood Pressure 144/56 (mmHg) O2 Sat by Pulse 94 93 Oximetry 07/21/17 11:31 Temperature 98.2 F Pulse Rate 97 Respiratory Rate Blood Pressure 129/58 (mmHg) O2 Sat by Pulse 92 Oximetry Oxygen Devices in Use Now: Nasal Cannula Appearance: alert, pleasant, appropriate Eyes: No Scleral Icterus, PERRLA Ears/Nose/Mouth/Throat: NL Teeth, Lips, Gums Neck: - - JVP ~8cm Respiratory: - - very poor aeration, no wheezing Cardiovascular: - - irregular rhythm Abdominal: - - extensive superficial abdominal wound with granulation tissue, no erythema or drainage, mesh protruding at inferior section Lymphatic: No Cervical Adenopathy Extremities: No Edema, - - right clavicular deformity Neurological: Alert and Oriented x 3 Result Diagrams: 07/20/17 04:10 07/20/17 04:10 Microbiology and Other Data: Microbiology 07/20/17 11:40 Gram Stain - Final Sputum Assess/Plan/Problems-Billing Assessment: 76 yo M h/o COPD with chronic resp failure (2L o2 and home bipap), dCHF, afib, non healing abdominal wounds, admitted beginning of june for non healing wounds with superinfection, discharged then returned after respiratory failure with bystander CPR at home (no shocks, no meds) with stay notable for intubation and treatment of PNA x 10 days with broad spectrum abx, treatment of CHF with aggressive diuresis, thoracentesis returning now with sudden onset increased SOB and coughing for 12 hours prior to presentation with CXR concerning for PNA - Patient Problems (1) Acute and chronic respiratory failure with hypoxia Current Visit: Yes Status: Acute Code(s): J96.21 - ACUTE AND CHRONIC RESPIRATORY FAILURE WITH HYPOXIA SNOMED Code(s): 86371969 Comment: he is on his home baseline O2 requirement of 2-3L I agree that his exam is most consistent with severe bronchospasm and copd exacerbation despite being on steroids for most of the past month. Continue solumedrol and standing nebs May be approaching end-stage COPD given his recurrent hospitalizations I agree that this is less likely bacterial PNA but with appearance of CXR and tenuous respiratory status will c/w levaquin alone (dc cefepime 07/18) (2) Atrial fibrillation Current Visit: Yes Status: Acute Priority: Medium Code(s): I48.91 - UNSPECIFIED ATRIAL FIBRILLATION SNOMED Code(s): 96941058 Comment: continue cardizem and metoprolol AC with coumadin (3) COPD (chronic obstructive pulmonary disease) Current Visit: Yes Status: Acute Priority: Medium Code(s): J44.9 - CHRONIC OBSTRUCTIVE PULMONARY DISEASE, UNSPECIFIED SNOMED Code(s): 43362507 Comment: nebs and steroids for acute exacerbation (4) Esophageal dysfunction Current Visit: Yes Status: Acute Code(s): K22.4 - DYSKINESIA OF ESOPHAGUS SNOMED Code(s): 672595860 Comment: only mild on esophagram swallow eval was okay no recurrent pain on swallowing since 07/19/16 (5) Chronic diastolic heart failure Current Visit: No Status: Acute Code(s): I50.32 - CHRONIC DIASTOLIC ( CONGESTIVE) HEART FAILURE SNOMED Code(s): 248691689 Comment: euvolemic today ECHO with EF 50-55%, mild , mild to moderate MVR baseline ~ 140 lbs. (6) Full code status Current Visit: No Status: Acute Code(s): Z78.9 - OTHER SPECIFIED HEALTH STATUS SNOMED Code(s): 845257609 Comment: evaluated by Dr. Cabrera; he and his were not ready to discuss code status, but were open to discussions about home hospice (7) Tobacco abuse Current Visit: No Status: Acute Code(s): Z72.0 - TOBACCO USE SNOMED Code(s ): 812077405 Comment: continues to smoke tobacco daily, which may also be contributing to his recurrent admissions
[2017-07-21] MEDS: Warfarin TAB(*) 5 MG PO SCH (16:34)
[2017-07-22] MEDS: Omeprazole CAP* 20 MG PO SCH (05:44)
[2017-07-22 06:05] LABS: ABS Basophils 0 10^3/ul (0-0.2); ABS Eosinophils 0 10^3/ul (0-0.6); ABS Lymphocytes 0.2 10^3/ul (1.0-4.8); ABS Monocytes 0.6 10^3/ul (0-0.8); ABS Neutrophils 10.5 10^3/ul (1.5-7.7); ABS Nucleated RBC 0 10^3/ul; Eosinophil % 0 % (0-6); Hematocrit 38 % (42-52); Hemoglobin 12.2 g/dl (14.0-18.0); Lymphocyte % 1.8 % (25-47); Mean Corpuscular HGB Conc 32 g/dl (31-36); Mean Corpuscular Hemoglobin 28 pg (27-31); Mean Corpuscular Volume 87 fL (80-94); Mean Platelet Volume 8 um3 (7.4-10.4); Nucleated Red Blood Cells % 0; Platelet Count 269 10^3/ul (150-450); Red Blood Count 4.35 10^6/ul (4.0-5.4); Red Cell Distribution Width 15 % (10.5-15); White Blood Count 11.3 10^3/ul (3.5-10.8)
[2017-07-22 06:18] LABS: INR 2.85 (0.77-1.02)
[2017-07-22] MEDS: Tiotropium CAP.INH* CAP.INH/18 MCG (USE ORDER SET !) INH SCH (07:56)
[2017-07-22] MEDS: Mometasone/Formoter 200/5 MDI INH SCH ×2 (07:57→20:09)
[2017-07-22] MEDS: Docusate CAP* 100 MG PO SCH ×2 (08:54→21:37)
[2017-07-22] MEDS: Metoprolol Tartrate TAB* 50 mg PO SCH (08:54)
[2017-07-22] MEDS: Aspirin EC Low Dose* 81 MG TAB.EC PO SCH (08:54)
[2017-07-22] MEDS: methylPREDNISolone SOD 40 MG* 1 ML VIAL IV SCH ×2 (08:54→21:37)
[2017-07-22] MEDS: Mupirocin 2% OINT* TUBE TOPICAL SCH (08:54)
[2017-07-22] MEDS: Diltiazem CD CAP* 240 MG PO SCH (08:54)
[2017-07-22] MEDS: Sertraline* 100 MG TAB PO SCH (08:54)
[2017-07-22] MEDS: Levofloxacin 500 MG IVPREMIX(* 500 MG/100 ML BAG IVPB SCH (08:54)
--- NOTE | 2017-07-22 15:42 | PN ---
Subjective Date of Service: 07/22/17 Interval History: feels okay today, went for a walk and had to stop mcc around the unit to catch his breath. denies shortness of breath when he is at rest in the bed. no cough, fevers, chest pain, orthopnea. Family History: Unchanged from Admission Social History: Unchanged from Admission Past Medical History: Unchanged from Admission Objective Active Medications: Acetaminophen (Tylenol Tab*) 650 mg PO Q4H PRN PRN Reason: FEVER/PAIN Al Hydrox/Mg Hydrox/Simethicone (Maalox Plus*) 30 ml PO Q2H PRN PRN Reason: HEARTBURN Last Admin: 07/19/17 09:18 Dose: 30 ml Albuterol (Ventolin Hfa Inhaler*) 2 puff INH Q4H PRN PRN Reason: SOB/WHEEZING Albuterol/Ipratropium (Duoneb (Albuterol 2.5 Mg/Ipratropium 0.5 Mg)) 1 neb INH Q4H [facility] Aspirin (Aspirin Ec Low Dose*) 81 mg PO DAILY [facility] Last Admin: 07/22/17 08:54 Dose: 81 mg Device (Tiotropium Inhaler Device*) 1 each .SEE ORDER .USE w/ SPIRIVA CAPS [facility] Diltiazem HCl (Cardizem Cd Cap*) 240 mg PO QAM [facility] Last Admin: 07/22/17 08:54 Dose: 240 mg Docusate Sodium (Colace Cap*) 100 mg PO BID [facility] Last Admin: 07/22/17 08:54 Dose: 100 mg Guaifenesin/Dextromethorphan (Robitussin Dm*) 5 ml PO Q4H PRN PRN Reason: COUGH Last Admin: 07/19/17 09:18 Dose: 5 ml Levofloxacin/Dextrose (Levaquin 500 Mg Ivpremix(*)) 500 mg in 100 mls @ 100 mls /hr IVPB Q24H [facility] Last Admin: 07/22/17 08:54 Dose: 100 mls/hr Methylprednisolone Sodium Succinate (Solu-Medrol 40 Mg) 40 mg IV Q12HR [facility] Last Admin: 07/22/17 08:54 Dose: 40 mg Metoprolol Tartrate (Lopressor Tab*) 50 mg PO BID [facility] Last Admin: 07/22/17 08:54 Dose: 50 mg Mometasone Furoate/Formoterol Fumar (Dulera 200/5 Mdi*) 2 puff INH BID [facility] Last Admin: 07/22/17 07:57 Dose: 2 puff Morphine Sulfate (Morphine Inj (Syringe)*) 2 mg IV Q4H PRN PRN Reason: PAIN Last Admin: 07/18/17 14:06 Dose: 2 mg Mupirocin (Bactroban 2 % Oint*) 1 applic TOPICAL DAILY [facility] Last Admin: 07/22/17 08:54 Dose: 1 admin Omeprazole (Prilosec Cap*) 20 mg PO DAILY@0600 [facility] Last Admin: 07/22/17 05:44 Dose: 20 mg Pharmacy Profile Note (Coumadin Daily Reminder*) 1 note FOLLOW UP 1700 [facility] Sertraline HCl (Zoloft*) 150 mg PO DAILY [facility] Last Admin: 07/22/17 08:54 Dose: 150 mg Tiotropium [place] (Spiriva Cap.Inh*) 1 cap INH DAILY [facility] Last Admin: 07/22/17 07:56 Dose: 1 cap Warfarin Sodium (Coumadin Tab(*)) 4 mg PO DAILY@1700 [facility] PRN Reason: Protocol Vital Signs - 8 hr 07/22/17 07/22/17 08:00 11:25 Temperature 98.6 F Pulse Rate 111 Respiratory 20 17 Rate Blood Pressure 143/78 (mmHg) O2 Sat by Pulse 93 98 Oximetry Oxygen Devices in Use Now: Nasal Cannula Appearance: alert, lying nearly flat, becomes dyspneic with speaking--cannot speak a full sentence Eyes: No Scleral Icterus Ears/Nose/Mouth/Throat: NL Teeth, Lips, Gums Neck: NL Appearance and Movements; NL JVP Respiratory: - - very poor air flow, prolonged expiratory phase Cardiovascular: NL Sounds; No Murmurs; No JVD, No Edema, - - irregular rhythm Abdominal: - - large purplish superficial wound with granulation tissue and mesh protruding at the inferior portion, no erythema or drainage Lymphatic: No Cervical Adenopathy Extremities: No Edema Skin: No Rash or Ulcers Result Diagrams: 07/22/17 05:45 07/22/17 05:45 Microbiology and Other Data: Microbiology 07/20/17 11:40 Gram Stain - Final Sputum Assess/Plan/Problems-Billing Assessment: 76 yo M h/o COPD with chronic resp failure (2L o2 and home bipap), dCHF, afib, non healing abdominal wounds, admitted beginning of june for non healing wounds with superinfection, discharged then returned after respiratory failure with bystander CPR at home (no shocks, no meds) with stay notable for intubation and treatment of PNA x 10 days with broad spectrum abx, treatment of CHF with aggressive diuresis, thoracentesis returning now with sudden onset increased SOB and coughing for 12 hours prior to presentation with CXR concerning for PNA - Patient Problems (1) Acute and chronic respiratory failure with hypoxia Current Visit: Yes Status: Acute Code(s): J96.21 - ACUTE AND CHRONIC RESPIRATORY FAILURE WITH HYPOXIA SNOMED Code(s): 34872995 Comment: he is on his home baseline O2 requirement of 2-3L I agree that his exam is most consistent with severe bronchospasm and copd exacerbation despite being on steroids for most of the past month. Continue solumedrol, and he had only been getting PRN nebs--I am changing them to standing while awake I believe he is approaching end-stage COPD given his recurrent hospitalizations , and he understands this as well I agree that this is less likely bacterial PNA but with appearance of CXR and tenuous respiratory status will c/w levaquin alone (today is day 7, will plan to continue for 10 days total) (2) Atrial fibrillation Current Visit: Yes Status: Acute Priority: Medium Code(s): I48.91 - UNSPECIFIED ATRIAL FIBRILLATION SNOMED Code(s): 33173270 Comment: poorly controlled. I am increasing his metoprolol to 75mg q12. AC with coumadin. I am reducing the dose to 4mg daily due to the sharp increase in INR today. (3) COPD (chronic obstructive pulmonary disease) Current Visit: Yes Status: Acute Priority: Medium Code(s): J44.9 - CHRONIC OBSTRUCTIVE PULMONARY DISEASE, UNSPECIFIED SNOMED Code(s): 19507567 Comment: nebs and steroids for acute exacerbation (4) Esophageal dysfunction Current Visit: Yes Status: Acute Code(s): K22.4 - DYSKINESIA OF ESOPHAGUS SNOMED Code(s): 944769189 Comment: only mild on esophagram swallow eval was okay no recurrent pain on swallowing since 07/19/16 (5) Chronic diastolic heart failure Current Visit: No Status: Acute Code(s): I50.32 - CHRONIC DIASTOLIC ( CONGESTIVE) HEART FAILURE SNOMED Code(s): 582080140 Comment: euvolemic today ECHO with EF 50-55%, mild , mild to moderate MVR baseline ~ 140 lbs. (6) Full code status Current Visit: No Status: Acute Code(s): Z78.9 - OTHER SPECIFIED HEALTH STATUS SNOMED Code(s): 498258639 Comment: evaluated by Dr. Cabrera; he and his were not ready to discuss code status, but were open to discussions about home hospice (7) Tobacco abuse Current Visit: No Status: Acute Code(s): Z72.0 - TOBACCO USE SNOMED Code(s ): 179836386 Comment: continues to smoke tobacco daily, which may also be contributing to his recurrent admissions
[2017-07-22] MEDS: Albuterol/Ipratropium NEB.SOL* Albuterol 2.5 MG/Ipratropium 0.5 MG 3 ML INH SCH ×2 (16:28→20:09)
[2017-07-22] MEDS ORDERED: Warfarin TAB(*) 4 MG PO SCH (17:00)
[2017-07-22] MEDS ORDERED: Diltiazem IV* 5 MG/ML 5 ML VIAL (for loading dose/IV Push) (25 MG) IV SLOW PU ONE (20:58)
[2017-07-22] MEDS: Metoprolol Tartrate TAB* 25 MG PO SCH (21:38)
[2017-07-22] MEDS ORDERED: Diltiazem DRIP* 100 MG/100 ML ADDV.BAG IVPB ONE (21:59)
[2017-07-22] MEDS ORDERED: Diltiazem IV VIAL* 125 MG in NS 0.9% 100 ML* 100 ML IV ONE (22:00)
[2017-07-23] MEDS: Albuterol/Ipratropium NEB.SOL* Albuterol 2.5 MG/Ipratropium 0.5 MG 3 ML INH SCH ×3 (02:15→13:57)
[2017-07-23] MEDS: Omeprazole CAP* 20 MG PO SCH (06:22)
[2017-07-23 06:43] LABS: ABS Basophils 0 10^3/ul (0-0.2); ABS Eosinophils 0 10^3/ul (0-0.6); ABS Lymphocytes 0.1 10^3/ul (1.0-4.8); ABS Monocytes 0.7 10^3/ul (0-0.8); ABS Neutrophils 12.9 10^3/ul (1.5-7.7); ABS Nucleated RBC 0 10^3/ul; Eosinophil % 0 % (0-6); Hematocrit 37 % (42-52); Hemoglobin 11.9 g/dl (14.0-18.0); Mean Corpuscular HGB Conc 33 g/dl (31-36); Mean Corpuscular Hemoglobin 28 pg (27-31); Mean Corpuscular Volume 87 fL (80-94); Mean Platelet Volume 8 um3 (7.4-10.4); Nucleated Red Blood Cells % 0.1; Platelet Count 266 10^3/ul (150-450); Red Blood Count 4.22 10^6/ul (4.0-5.4); Red Cell Distribution Width 15 % (10.5-15); White Blood Count 13.7 10^3/ul (3.5-10.8)
[2017-07-23 06:45] LABS: INR 3.56 (0.77-1.02)
[2017-07-23] MEDS: Mometasone/Formoter 200/5 MDI INH SCH ×2 (07:27→19:31)
[2017-07-23] MEDS: Tiotropium CAP.INH* CAP.INH/18 MCG (USE ORDER SET !) INH SCH (07:27)
[2017-07-23] MEDS: Diltiazem CD CAP* 240 MG PO SCH (08:22)
[2017-07-23] MEDS: Sertraline* 100 MG TAB PO SCH (08:22)
[2017-07-23] MEDS: methylPREDNISolone SOD 40 MG* 1 ML VIAL IV SCH ×2 (08:22→21:37)
[2017-07-23] MEDS: Metoprolol Tartrate TAB* 25 MG PO SCH ×2 (08:22→21:37)
[2017-07-23] MEDS: Aspirin EC Low Dose* 81 MG TAB.EC PO SCH (08:22)
[2017-07-23] MEDS: Docusate CAP* 100 MG PO SCH ×2 (08:22→21:37)
[2017-07-23] MEDS: Levofloxacin 500 MG IVPREMIX(* 500 MG/100 ML BAG IVPB SCH (09:22)
[2017-07-23] MEDS ORDERED: Metoprolol Tartrate TAB* 50 mg PO ONE (10:03)
--- NOTE | 2017-07-23 11:46 | RAD ---
Indication: Evaluate CHF. 2 views of the chest demonstrates bilateral pleural effusions. Cardiomegaly with interstitial edema is noted. No changes noted since July 19, 2017. IMPRESSION: Cardiomegaly with bilateral pleural effusions and interstitial edema.
[2017-07-23] MEDS: Mupirocin 2% OINT* TUBE TOPICAL SCH (11:53)
--- NOTE | 2017-07-23 11:54 | PN ---
Subjective Date of Service: 07/23/17 Interval History: Seen with at bedside Breathing feels stable no better No chest pain . Events from overnight reviewed. Transferred to ICU for cardizem gtt after afiv RVR. Family adamant about not returning to . Rate well controlled this AM tearful in room. Considering home with hospice. Discussed together more in depth what this means. They would both like to try morphine PO if needed prior to any discharge. Family History: Unchanged from Admission Social History: Unchanged from Admission Past Medical History: Unchanged from Admission Objective Active Medications: Acetaminophen (Tylenol Tab*) 650 mg PO Q4H PRN PRN Reason: FEVER/PAIN Acetazolamide (Diamox Tab*) 250 mg PO BID [facility] Al Hydrox/Mg Hydrox/Simethicone (Maalox Plus*) 30 ml PO Q2H PRN PRN Reason: HEARTBURN Last Admin: 07/19/17 09:18 Dose: 30 ml Albuterol (Ventolin Hfa Inhaler*) 2 puff INH Q4H PRN PRN Reason: SOB/WHEEZING Albuterol/Ipratropium (Duoneb (Albuterol 2.5 Mg/Ipratropium 0.5 Mg)) 1 neb INH [id number] AWAKE [facility] Last Admin: 07/23/17 07:19 Dose: 1 neb Aspirin (Aspirin Ec Low Dose*) 81 mg PO DAILY [facility] Last Admin: 07/23/17 08:22 Dose: 81 mg Device (Tiotropium Inhaler Device*) 1 each .SEE ORDER .USE w/ SPIRIVA CAPS [facility] Diltiazem HCl (Cardizem Cd Cap*) 240 mg PO QAM [facility] Last Admin: 07/23/17 08:22 Dose: 240 mg Docusate Sodium (Colace Cap*) 100 mg PO BID [facility] Last Admin: 07/23/17 08:22 Dose: Not Given Guaifenesin/Dextromethorphan (Robitussin Dm*) 5 ml PO Q4H PRN PRN Reason: COUGH Last Admin: 07/19/17 09:18 Dose: 5 ml Levofloxacin/Dextrose (Levaquin 500 Mg Ivpremix(*)) 500 mg in 100 mls @ 100 mls /hr IVPB Q24H [facility] Last Admin: 07/23/17 09:22 Dose: 100 mls/hr Methylprednisolone Sodium Succinate (Solu-Medrol 40 Mg) 40 mg IV Q12HR [facility] Last Admin: 07/23/17 08:22 Dose: 40 mg Metoprolol Tartrate (Lopressor Tab*) 75 mg PO BID [facility] Last Admin: 07/23/17 08:22 Dose: 75 mg Mometasone Furoate/Formoterol Fumar (Dulera 200/5 Mdi*) 2 puff INH BID [facility] Last Admin: 07/23/17 07:27 Dose: 2 puff Morphine Sulfate (Morphine Oral Concentrate*) 5 mg SL Q6H PRN PRN Reason: PAIN Mupirocin (Bactroban 2 % Oint*) 1 applic TOPICAL DAILY [facility] Last Admin: 07/22/17 08:54 Dose: 1 admin Omeprazole (Prilosec Cap*) 20 mg PO DAILY@0600 [facility] Last Admin: 07/23/17 06:22 Dose: 20 mg Pharmacy Profile Note (Coumadin Daily Reminder*) 1 note FOLLOW UP 1700 [facility] Last Admin: 07/22/17 15:53 Dose: 1 note Sertraline HCl (Zoloft*) 150 mg PO DAILY [facility] Last Admin: 07/23/17 08:22 Dose: 150 mg Tiotropium [place] (Spiriva Cap.Inh*) 1 cap INH DAILY [facility] Last Admin: 07/23/17 07:27 Dose: 1 cap Warfarin Sodium (Coumadin Tab(*)) 4 mg PO DAILY@1700 [facility] PRN Reason: Protocol Last Admin: 07/22/17 15:52 Dose: 4 mg Vital Signs - 8 hr 07/23/17 07/23/17 07/23/17 03:58 04:00 05:00 Temperature 98.8 F Pulse Rate Respiratory 24 33 Rate Blood Pressure 159/82 (mmHg) O2 Sat by Pulse 95 91 Oximetry 07/23/17 07/23/17 07/23/17 05:01 06:00 06:01 Temperature Pulse Rate Respiratory 28 26 27 Rate Blood Pressure 150/91 150/94 (mmHg) O2 Sat by Pulse 84 90 92 Oximetry 07/23/17 07/23/17 07/23/17 06:27 07:00 07:01 Temperature Pulse Rate 100 98 Respiratory 19 25 23 Rate Blood Pressure 155/97 (mmHg) O2 Sat by Pulse 94 95 Oximetry 03/12/18 03/12/18 03/12/18 07:20 07:35 08:00 Temperature 99.2 F Pulse Rate 101 105 Respiratory 21 28 Rate Blood Pressure 162/92 (mmHg) O2 Sat by Pulse 96 97 Oximetry 07/23/17 07/23/17 07/23/17 09:00 09:06 09:37 Temperature Pulse Rate 103 104 Respiratory 29 23 16 Rate Blood Pressure 143/85 (mmHg) O2 Sat by Pulse 93 95 97 Oximetry 07/23/17 07/23/17 07/23/17 10:00 10:09 11:00 Temperature Pulse Rate 95 Respiratory 26 26 18 Rate Blood Pressure 126/82 140/100 (mmHg) O2 Sat by Pulse 86 Oximetry 07/23/17 11:42 Temperature 99.6 F Pulse Rate Respiratory Rate Blood Pressure (mmHg) O2 Sat by Pulse Oximetry Oxygen Devices in Use Now: Nasal Cannula Appearance: older than stated age, NAD Eyes: No Scleral Icterus, PERRLA Ears/Nose/Mouth/Throat: Clear Oropharnyx, Mucous Membranes Moist Neck: NL Appearance and Movements; NL JVP, Trachea Midline Respiratory: Symmetrical Chest Expansion and Respiratory Effort, - - greatly decreased throughout Cardiovascular: - - irir Abdominal: NL Sounds; No Tenderness; No Distention Extremities: No Edema Neurological: Alert and Oriented x 3 Result Diagrams: 07/23/17 06:15 07/23/17 06:15 Microbiology and Other Data: Microbiology 07/20/17 11:40 Gram Stain - Final Sputum Assess/Plan/Problems-Billing Assessment: 76 yo M h/o COPD with chronic resp failure (2L o2 and home bipap), dCHF, afib, non healing abdominal wounds, admitted beginning of june for non healing wounds with superinfection, discharged then returned after respiratory failure with bystander CPR at home (no shocks, no meds) with stay notable for intubation and treatment of PNA x 10 days with broad spectrum abx, treatment of CHF with aggressive diuresis, thoracentesis returning now with sudden onset increased SOB and coughing for 12 hours prior to presentation with CXR concerning for PNA with stay c/b afib RVR - Patient Problems (1) Acute and chronic respiratory failure with hypoxia Comment: he is on his home baseline O2 requirement of 2-3L exam consistent with severe bronchospasm and copd exacerbation despite being on steroids for most of the past month. Continue solumedrol, and he had only been getting PRN nebs--changed to standing while awake Likely approaching end-stage COPD given his recurrent hospitalizations, and he understands this as well and is considering hospice bacterial PNA less likely but with appearance of CXR and tenuous respiratory status will c/w levaquin alone (today is day ) (2) COPD (chronic obstructive pulmonary disease) Comment: nebs and steroids for acute exacerbation (3) Atrial fibrillation Comment: poorly controlled. metoprolol increased to 75mg q12. 07/22. Extra 50mg PO now AC with coumadin. Coumadin reduced to 4mg daily due to the sharp increase in INR today. (4) Supratherapeutic INR Comment: resolved (5) Esophageal dysfunction Comment: only mild on esophagram swallow eval was okay no recurrent pain on swallowing since 07/19/16 (6) DVT prophylaxis Comment: Coumadin
[2017-07-23 12:43] LABS: Urine Appearance Clear; Urine Blood Negative (Negative); Urine Color Yellow; Urine Ketones Negative (Negative); Urine Protein Negative (Negative); Urine Specific Gravity 1.017 (1.010-1.030); Urine Urobilinogen Negative (Negative)
[2017-07-23] MEDS ORDERED: Albuterol/Ipratropium NEB.SOL* Albuterol 2.5 MG/Ipratropium 0.5 MG 3 ML INH SCH (14:00)
[2017-07-23] MEDS ORDERED: Albuterol/Ipratropium NEB.SOL* Albuterol 2.5 MG/Ipratropium 0.5 MG 3 ML INH PRN (14:09)
[2017-07-23] MEDS: acetaZOLAMIDE TAB* 250 MG PO SCH (21:37)
[2017-07-24] MEDS: Omeprazole CAP* 20 MG PO SCH (05:40)
[2017-07-24] MEDS: methylPREDNISolone SOD 40 MG* 1 ML VIAL IV SCH (08:28)
[2017-07-24] MEDS: Aspirin EC Low Dose* 81 MG TAB.EC PO SCH (08:29)
[2017-07-24] MEDS: Diltiazem CD CAP* 240 MG PO SCH (08:29)
[2017-07-24] MEDS: Levofloxacin 500 MG IVPREMIX(* 500 MG/100 ML BAG IVPB SCH (08:29)
[2017-07-24] MEDS: Docusate CAP* 100 MG PO SCH ×2 (08:29→21:50)
[2017-07-24] MEDS: Metoprolol Tartrate TAB* 25 MG PO SCH (08:29)
[2017-07-24] MEDS: Sertraline* 100 MG TAB PO SCH (08:29)
[2017-07-24] MEDS: acetaZOLAMIDE TAB* 250 MG PO SCH ×2 (08:30→21:59)
[2017-07-24] MEDS: Mupirocin 2% OINT* TUBE TOPICAL SCH (08:30)
[2017-07-24] MEDS: Tiotropium CAP.INH* CAP.INH/18 MCG (USE ORDER SET !) INH SCH (08:37)
[2017-07-24] MEDS: Mometasone/Formoter 200/5 MDI INH SCH ×2 (08:38→19:18)
--- NOTE | 2017-07-24 15:03 | PN ---
Subjective Date of Service: 07/24/17 Interval History: Seen with at bedside Per pt felt like his head was cloudy this AM but then resolved Feels "a little short of breath" when seen Family History: Unchanged from Admission Social History: Unchanged from Admission Past Medical History: Unchanged from Admission Objective Active Medications: Acetaminophen (Tylenol Tab*) 650 mg PO Q4H PRN PRN Reason: FEVER/PAIN Acetazolamide (Diamox Tab*) 250 mg PO BID [facility] Last Admin: 07/24/17 08:30 Dose: 250 mg Al Hydrox/Mg Hydrox/Simethicone (Maalox Plus*) 30 ml PO Q2H PRN PRN Reason: HEARTBURN Last Admin: 07/19/17 09:18 Dose: 30 ml Albuterol (Ventolin Hfa Inhaler*) 2 puff INH Q4H PRN PRN Reason: SOB/WHEEZING Albuterol/Ipratropium (Duoneb (Albuterol 2.5 Mg/Ipratropium 0.5 Mg)) 1 neb INH Q4H PRN PRN Reason: SOB/WHEEZING Aspirin (Aspirin Ec Low Dose*) 81 mg PO DAILY [facility] Last Admin: 07/24/17 08:29 Dose: 81 mg Device (Tiotropium Inhaler Device*) 1 each .SEE ORDER .USE w/ SPIRIVA CAPS [facility] Diltiazem HCl (Cardizem Cd Cap*) 240 mg PO QAM [facility] Last Admin: 07/24/17 08:29 Dose: 240 mg Docusate Sodium (Colace Cap*) 100 mg PO BID [facility] Last Admin: 07/24/17 08:29 Dose: 100 mg Guaifenesin/Dextromethorphan (Robitussin Dm*) 5 ml PO Q4H PRN PRN Reason: COUGH Last Admin: 07/19/17 09:18 Dose: 5 ml Levofloxacin/Dextrose (Levaquin 500 Mg Ivpremix(*)) 500 mg in 100 mls @ 100 mls /hr IVPB Q24H [facility] Last Admin: 07/24/17 08:29 Dose: 100 mls/hr Metoprolol Tartrate (Lopressor Tab*) 75 mg PO BID [facility] Last Admin: 07/24/17 08:29 Dose: 75 mg Mometasone Furoate/Formoterol Fumar (Dulera 200/5 Mdi*) 2 puff INH BID [facility] Last Admin: 07/24/17 08:38 Dose: 2 puff Morphine Sulfate (Morphine Oral Concentrate*) 5 mg SL Q6H PRN PRN Reason: PAIN Mupirocin (Bactroban 2 % Oint*) 1 applic TOPICAL DAILY [facility] Last Admin: 07/24/17 08:30 Dose: Not Given Omeprazole (Prilosec Cap*) 20 mg PO DAILY@0600 [facility] Last Admin: 07/24/17 05:40 Dose: 20 mg Prednisone (Deltasone Tab*) 60 mg PO DAILY [facility] Sertraline HCl (Zoloft*) 150 mg PO DAILY [facility] Last Admin: 07/24/17 08:29 Dose: 150 mg Tiotropium [place] (Spiriva Cap.Inh*) 1 cap INH DAILY [facility] Last Admin: 07/24/17 08:37 Dose: 1 cap Vital Signs - 8 hr 07/24/17 08:41 O2 Sat by Pulse 98 Oximetry Oxygen Devices in Use Now: Nasal Cannula - 2l Appearance: NAD, sitting in chair Eyes: No Scleral Icterus, PERRLA Ears/Nose/Mouth/Throat: Clear Oropharnyx, Mucous Membranes Moist Neck: NL Appearance and Movements; NL JVP, Trachea Midline Respiratory: Symmetrical Chest Expansion and Respiratory Effort, - - decreased throughout, wheeze anterior Cardiovascular: - - irir Abdominal: NL Sounds; No Tenderness; No Distention, No Hepatosplenomegaly Lymphatic: No Cervical Adenopathy Extremities: No Edema Neurological: Alert and Oriented x 3 Result Diagrams: 07/23/17 06:15 07/23/17 06:15 Microbiology and Other Data: Microbiology 07/20/17 11:40 Gram Stain - Final Sputum Assess/Plan/Problems-Billing Assessment: 76 yo M h/o COPD with chronic resp failure (2L o2 and home bipap), dCHF, afib, non healing abdominal wounds, admitted beginning of june for non healing wounds with superinfection, discharged then returned after respiratory failure with bystander CPR at home (no shocks, no meds) with stay notable for intubation and treatment of PNA x 10 days with broad spectrum abx, treatment of CHF with aggressive diuresis, thoracentesis returning now with sudden onset increased SOB and coughing for 12 hours prior to presentation with CXR concerning for PNA with stay c/b afib RVR - Patient Problems (1) Acute and chronic respiratory failure with hypoxia Comment: he is on his home baseline O2 requirement of 2-3L exam consistent with severe bronchospasm and copd exacerbation despite being on steroids for most of the past month. titrate IV steroids to PO starting 07/25 Continue solumedrol Declining nebulizers Likely approaching end-stage COPD given his recurrent hospitalizations, and he understands this as well and is considering hospice - would like to go home and if worsens sign on to hospice at that time bacterial PNA less likely but with appearance of CXR and tenuous respiratory status will c/w levaquin alone (today is day ) (2) COPD (chronic obstructive pulmonary disease) Comment: nebs and steroids for acute exacerbation PO steroid starting 07/25 (3) Atrial fibrillation Comment: poorly controlled. metoprolol increased to 75mg q12. 07/22 then 100mg BID 07/24 in evening AC with coumadin. Coumadin reduced to 4mg daily due to the sharp increase in INR INR tomorrow (4) Supratherapeutic INR Comment: resolved (5) Esophageal dysfunction Comment: only mild on esophagram swallow eval was okay no recurrent pain on swallowing since 07/19/16 (6) DVT prophylaxis Comment: Coumadin
[2017-07-24] MEDS: Metoprolol Tartrate TAB* 100 MG TAB PO SCH (21:50)
[2017-07-25] MEDS: Omeprazole CAP* 20 MG PO SCH (06:12)
[2017-07-25 07:14] LABS: Hematocrit 44 % (42-52); Hemoglobin 14.2 g/dl (14.0-18.0); Mean Corpuscular HGB Conc 33 g/dl (31-36); Mean Corpuscular Hemoglobin 28 pg (27-31); Mean Corpuscular Volume 87 fL (80-94); Mean Platelet Volume 9 um3 (7.4-10.4); Platelet Count 307 10^3/ul (150-450); Red Blood Count 5.03 10^6/ul (4.0-5.4); Red Cell Distribution Width 16 % (10.5-15); White Blood Count 25.3 10^3/ul (3.5-10.8)
[2017-07-25 07:16] LABS: INR 1.44 (0.77-1.02)
[2017-07-25 07:20] LABS: EGFR Non-African American 124.5 (>60)
[2017-07-25 07:44] LABS: ABS Basophils 0 10^3/ul (0-0.2); ABS Eosinophils 0 10^3/ul (0-0.6); ABS Lymphocytes 0.4 10^3/ul (1.0-4.8); ABS Monocytes 2.3 10^3/ul (0-0.8); ABS Neutrophils 22.6 10^3/ul (1.5-7.7); ABS Nucleated RBC 0 10^3/ul; Eosinophil % 0 % (0-6); Lymphocyte % 1.4 % (25-47); Nucleated Red Blood Cells % 0
[2017-07-25] MEDS: Tiotropium CAP.INH* CAP.INH/18 MCG (USE ORDER SET !) INH SCH (08:10)
[2017-07-25] MEDS: Mometasone/Formoter 200/5 MDI INH SCH ×2 (08:10→21:07)
[2017-07-25] MEDS: Morphine ORAL CONCENTRATE* 5 MG/0.25 ML ORAL.SYRIN SL PRN (09:12)
[2017-07-25] MEDS: Levofloxacin 500 MG IVPREMIX(* 500 MG/100 ML BAG IVPB SCH (10:13)
[2017-07-25] MEDS: Sertraline* 100 MG TAB PO SCH (10:23)
[2017-07-25] MEDS: Aspirin EC Low Dose* 81 MG TAB.EC PO SCH (10:24)
[2017-07-25] MEDS: acetaZOLAMIDE TAB* 250 MG PO SCH ×2 (10:24→22:11)
[2017-07-25] MEDS: Docusate CAP* 100 MG PO SCH ×2 (10:24→22:11)
[2017-07-25] MEDS: predniSONE TAB* 20 MG PO SCH (10:24)
[2017-07-25] MEDS: Metoprolol Tartrate TAB* 100 MG TAB PO SCH ×3 (10:24→22:16)
[2017-07-25] MEDS: Diltiazem CD CAP* 240 MG PO SCH (10:25)
[2017-07-25] MEDS: Mupirocin 2% OINT* TUBE TOPICAL SCH (11:32)
--- NOTE | 2017-07-25 11:49 | PN ---
Subjective Date of Service: 07/25/17 Interval History: Seen with Patient had left rib pain and SOB earlier for which he took PO morphine with good relief Currently reports he feels better then he has Denies SOB, N/V No diarrhea Pt indicates he would like to be DNR. confirms would like to speak outside and patient gave me the permission to do so. He also granted her the right to make decisions on his behalf at this time. Family History: Unchanged from Admission Social History: Unchanged from Admission Past Medical History: Unchanged from Admission Objective Active Medications: Acetaminophen (Tylenol Tab*) 650 mg PO Q4H PRN PRN Reason: FEVER/PAIN Acetazolamide (Diamox Tab*) 250 mg PO BID [facility] Last Admin: 07/25/17 10:24 Dose: 250 mg Al Hydrox/Mg Hydrox/Simethicone (Maalox Plus*) 30 ml PO Q2H PRN PRN Reason: HEARTBURN Last Admin: 07/19/17 09:18 Dose: 30 ml Albuterol (Ventolin Hfa Inhaler*) 2 puff INH Q4H PRN PRN Reason: SOB/WHEEZING Albuterol/Ipratropium (Duoneb (Albuterol 2.5 Mg/Ipratropium 0.5 Mg)) 1 neb INH Q4H PRN PRN Reason: SOB/WHEEZING Aspirin (Aspirin Ec Low Dose*) 81 mg PO DAILY [facility] Last Admin: 07/25/17 10:24 Dose: 81 mg Device (Tiotropium Inhaler Device*) 1 each .SEE ORDER .USE w/ SPIRIVA CAPS [facility] Diltiazem HCl (Cardizem Cd Cap*) 240 mg PO QAM [facility] Last Admin: 07/25/17 10:25 Dose: 240 mg Docusate Sodium (Colace Cap*) 100 mg PO BID [facility] Last Admin: 07/25/17 10:24 Dose: 100 mg Guaifenesin/Dextromethorphan (Robitussin Dm*) 5 ml PO Q4H PRN PRN Reason: COUGH Last Admin: 07/19/17 09:18 Dose: 5 ml Levofloxacin/Dextrose (Levaquin 500 Mg Ivpremix(*)) 500 mg in 100 mls @ 100 mls /hr IVPB Q24H [facility] Last Admin: 07/25/17 10:13 Dose: 100 mls/hr Metoprolol Tartrate (Lopressor Tab*) 100 mg PO BID [facility] Last Admin: 07/25/17 10:24 Dose: 100 mg Mometasone Furoate/Formoterol Fumar (Dulera 200/5 Mdi*) 2 puff INH BID [facility] Last Admin: 07/25/17 08:10 Dose: 2 puff Morphine Sulfate (Morphine Oral Concentrate*) 5 mg SL Q6H PRN PRN Reason: PAIN Last Admin: 07/25/17 09:12 Dose: 5 mg Mupirocin (Bactroban 2 % Oint*) 1 applic TOPICAL DAILY [facility] Last Admin: 07/25/17 11:32 Dose: Not Given Omeprazole (Prilosec Cap*) 20 mg PO DAILY@0600 [facility] Last Admin: 07/25/17 06:12 Dose: 20 mg Prednisone (Deltasone Tab*) 60 mg PO DAILY [facility] Last Admin: 07/25/17 10:24 Dose: 60 mg Sertraline HCl (Zoloft*) 150 mg PO DAILY [facility] Last Admin: 07/25/17 10:23 Dose: 150 mg Tiotropium [place] (Spiriva Cap.Inh*) 1 cap INH DAILY [facility] Last Admin: 07/25/17 08:10 Dose: 1 cap Vital Signs - 8 hr 07/25/17 07/25/17 07/25/17 07:34 08:18 09:12 Temperature 97.7 F Pulse Rate 55 120 Respiratory 16 16 19 Rate Blood Pressure 117/64 (mmHg) O2 Sat by Pulse 96 92 Oximetry 07/25/17 10:09 Temperature Pulse Rate 100 Respiratory 18 Rate Blood Pressure 111/64 (mmHg) O2 Sat by Pulse 96 Oximetry Oxygen Devices in Use Now: Nasal Cannula Appearance: older than stated age, lethargic, NAD Eyes: No Scleral Icterus, PERRLA Ears/Nose/Mouth/Throat: Mucous Membranes Moist Neck: NL Appearance and Movements; NL JVP, Trachea Midline Respiratory: Symmetrical Chest Expansion and Respiratory Effort, - - decreased throughout, wheezes anteriorly resolved Cardiovascular: - - IRIR Abdominal: NL Sounds; No Tenderness; No Distention, No Hepatosplenomegaly Extremities: No Edema Skin: No Rash or Ulcers Neurological: Alert and Oriented x 3 Result Diagrams: 07/25/17 05:30 07/25/17 05:30 Microbiology and Other Data: Microbiology 07/20/17 11:40 Gram Stain - Final Sputum Assess/Plan/Problems-Billing Assessment: 76 yo M h/o COPD with chronic resp failure (2L o2 and home bipap), dCHF, afib, non healing abdominal wounds, admitted beginning of june for non healing wounds with superinfection, discharged then returned after respiratory failure with bystander CPR at home (no shocks, no meds) with stay notable for intubation and treatment of PNA x 10 days with broad spectrum abx, treatment of CHF with aggressive diuresis, thoracentesis returning now with sudden onset increased SOB and coughing for 12 hours prior to presentation with CXR concerning for PNA with stay c/b afib RVR - Patient Problems (1) Acute and chronic respiratory failure with hypoxia Comment: he is on his home baseline O2 requirement of 2-3L exam consistent with severe bronchospasm and copd exacerbation despite being on steroids for most of the past month. titrate IV steroids to PO starting 07/25 Continue solumedrol Declining nebulizers Likely approaching end-stage COPD given his recurrent hospitalizations, and he understands this as well and is considering hospice - would like to go home and if worsens sign on to hospice at that time bacterial PNA less likely but with appearance of CXR and tenuous respiratory status has received 10 days levaquin WBC now greatly increased unlikely related to steroids given late increase in WBC while steroids decreased. Add vancomycin. Consider cefepime tomorrow. (2) COPD (chronic obstructive pulmonary disease) Comment: nebs and steroids for acute exacerbation PO steroid starting 07/25 (3) Atrial fibrillation Comment: poorly controlled. metoprolol increased to 75mg q12. 07/22 then 100mg BID 07/24 in evening AC with coumadin. Coumadin reduced to 4mg daily due to the sharp increase in INR INR tomorrow (4) Supratherapeutic INR Comment: resolved (5) Esophageal dysfunction Comment: only mild on esophagram swallow eval was okay no recurrent pain on swallowing since 07/19/16 (6) DVT prophylaxis Comment: Coumadin
[2017-07-25] MEDS ORDERED: Vancomycin(*) 1,000 MG in NS 0.9% 250 ML* 250 ML IVPB ONE (12:00)
[2017-07-25] MEDS ORDERED: Vancomycin per Pharmacy* NOTE FOLLOW UP PRN (12:46)
[2017-07-25] MEDS: Warfarin TAB(*) 4 MG PO SCH (17:04)
[2017-07-26] MEDS: Vancomycin(*) 1,000 MG in NS 0.9% 250 ML* 250 ML IVPB SCH ×2 (01:39→12:35)
[2017-07-26] MEDS: Omeprazole CAP* 20 MG PO SCH (05:41)
[2017-07-26 06:26] LABS: Hematocrit 40 % (42-52); Hemoglobin 13.2 g/dl (14.0-18.0); Mean Corpuscular HGB Conc 33 g/dl (31-36); Mean Corpuscular Hemoglobin 29 pg (27-31); Mean Corpuscular Volume 87 fL (80-94); Mean Platelet Volume 8 um3 (7.4-10.4); Platelet Count 271 10^3/ul (150-450); Red Blood Count 4.64 10^6/ul (4.0-5.4); Red Cell Distribution Width 15 % (10.5-15); White Blood Count 22.4 10^3/ul (3.5-10.8)
[2017-07-26 06:33] LABS: INR 1.29 (0.77-1.02)
[2017-07-26 06:45] LABS: EGFR Non-African American 126.8 (>60)
[2017-07-26 07:02] LABS: ABS Basophils 0 10^3/ul (0-0.2); ABS Eosinophils 0 10^3/ul (0-0.6); ABS Lymphocytes 0.4 10^3/ul (1.0-4.8); ABS Nucleated RBC 0 10^3/ul; Eosinophil % 0 % (0-6); Lymphocyte % 1.7 % (25-47); Nucleated Red Blood Cells % 0.1
[2017-07-26] MEDS: Sertraline* 100 MG TAB PO SCH (07:41)
[2017-07-26] MEDS: Diltiazem CD CAP* 240 MG PO SCH (07:41)
[2017-07-26] MEDS: Metoprolol Tartrate TAB* 100 MG TAB PO SCH ×2 (07:41→20:29)
[2017-07-26] MEDS: Aspirin EC Low Dose* 81 MG TAB.EC PO SCH (07:41)
[2017-07-26] MEDS: acetaZOLAMIDE TAB* 250 MG PO SCH ×2 (07:41→20:29)
[2017-07-26] MEDS: Levofloxacin 500 MG IVPREMIX(* 500 MG/100 ML BAG IVPB SCH (07:41)
[2017-07-26] MEDS: Docusate CAP* 100 MG PO SCH ×2 (07:42→20:30)
[2017-07-26] MEDS: predniSONE TAB* 20 MG PO SCH (07:42)
[2017-07-26] MEDS: Mupirocin 2% OINT* TUBE TOPICAL SCH (07:42)
[2017-07-26] MEDS: Tiotropium CAP.INH* CAP.INH/18 MCG (USE ORDER SET !) INH SCH (08:29)
[2017-07-26] MEDS: Mometasone/Formoter 200/5 MDI INH SCH ×2 (08:29→20:36)
[2017-07-26] MEDS ORDERED: Metoprolol Tartrate IV* 1 MG/ML 5 ML VIAL ONE ×2 (10:31→13:39)
[2017-07-26] MEDS: Morphine ORAL CONCENTRATE* 5 MG/0.25 ML ORAL.SYRIN SL PRN (12:34)
[2017-07-26] MEDS ORDERED: Digoxin IV* 0.5 MG/2 ML AMP (0.25 MG/ML) IV SLOW PU ONE (12:43)
[2017-07-26] MEDS ORDERED: PYRIDOXINE 100 MG/ML IV ONE (12:44)
[2017-07-26] MEDS ORDERED: Furosemide IV* 10 MG/ML VIAL (40 MG) IV ONE (13:00)
[2017-07-26] MEDS ORDERED: Metoprolol Tartrate IV* 1 MG/ML 5 ML VIAL IV ONE (13:00)
[2017-07-26] MEDS ORDERED: Furosemide IV* 10 MG/ML VIAL (40 MG) ONE (13:02)
--- NOTE | 2017-07-26 13:53 | RAD ---
Indication: Worsening shortness of breath. Hypertension. Chronic obstructive pulmonary disease. Comparison: July 23, 2017 Technique: Upright AP 1329 hours Report: Elevated lung volumes and both diffuse mild prominence of the interstitial markings and patchy rarefaction of the mid to upper lung zone interstitial markings. Unchanged small dependent RIGHT and trace LEFT pleural effusions. Asymmetric alveolar consolidation at the LEFT lung base without change suspicious for pneumonia. The heart, pulmonary vasculature, and mediastinal contours are unremarkable. IMPRESSION: No significant interval change in LEFT basilar alveolar infiltrate most suspicious for pneumonia superimposed on chronic obstructive pulmonary disease and pulmonary vascular congestion. Unchanged RIGHT larger than LEFT small pleural effusions with proportional atelectasis.
[2017-07-26] MEDS ORDERED: Metoprolol Tartrate IV* 1 MG/ML 5 ML VIAL IV PRN (14:05)
[2017-07-26] MEDS: Warfarin TAB(*) 4 MG PO SCH (16:43)
--- NOTE | 2017-07-26 18:39 | PN ---
Subjective Date of Service: 07/26/17 Interval History: Seen with at bedside This AM felt like breathing was stable. No better. No pain with swallowing. No other pain. Does not want to discuss disposition or end of life goals without present. This afternoon developed afib RVR unresponsive to dixogin load and metoprolol 5mg IV x 3. Discussed with patient and transfer to ICU for IV infusion but expressed my concern that this was a difficult to control problem as he had been to ICU earlier this week for similar event. When given the option to not treat afib RVR and remove telemetry instead of ICU transfer patient opted for the former with the goal of continuing antibiotics but also increasing morphine dose should the current dose be ineffective at alleviating symptoms. Family History: Unchanged from Admission Social History: Unchanged from Admission Past Medical History: Unchanged from Admission Objective Active Medications: Acetaminophen (Tylenol Tab*) 650 mg PO Q4H PRN PRN Reason: FEVER/PAIN Acetazolamide (Diamox Tab*) 250 mg PO BID [facility] Last Admin: 07/26/17 07:41 Dose: 250 mg Al Hydrox/Mg Hydrox/Simethicone (Maalox Plus*) 30 ml PO Q2H PRN PRN Reason: HEARTBURN Last Admin: 07/19/17 09:18 Dose: 30 ml Albuterol (Ventolin Hfa Inhaler*) 2 puff INH Q4H PRN PRN Reason: SOB/WHEEZING Albuterol/Ipratropium (Duoneb (Albuterol 2.5 Mg/Ipratropium 0.5 Mg)) 1 neb INH Q4H PRN PRN Reason: SOB/WHEEZING Last Admin: 07/26/17 12:07 Dose: 1 neb Aspirin (Aspirin Ec Low Dose*) 81 mg PO DAILY [facility] Last Admin: 07/26/17 07:41 Dose: 81 mg Device (Tiotropium Inhaler Device*) 1 each .SEE ORDER .USE w/ SPIRIVA CAPS [facility] Diltiazem HCl (Cardizem Cd Cap*) 240 mg PO QAM [facility] Last Admin: 07/26/17 07:41 Dose: 240 mg Docusate Sodium (Colace Cap*) 100 mg PO BID [facility] Last Admin: 07/26/17 07:42 Dose: 100 mg Guaifenesin/Dextromethorphan (Robitussin Dm*) 5 ml PO Q4H PRN PRN Reason: COUGH Last Admin: 07/19/17 09:18 Dose: 5 ml Levofloxacin/Dextrose (Levaquin 500 Mg Ivpremix(*)) 500 mg in 100 mls @ 100 mls /hr IVPB Q24H [facility] Last Admin: 07/26/17 07:41 Dose: 100 mls/hr Vancomycin HCl 1,000 mg/ (Sodium Chloride) 250 mls @ 166.667 mls/hr IVPB Q12H [facility] Last Admin: 07/26/17 12:35 Dose: 166.667 mls/hr Metoprolol Tartrate (Lopressor Tab*) 100 mg PO BID [facility] Last Admin: 07/26/17 07:41 Dose: 100 mg Metoprolol Tartrate (Lopressor Iv*) 5 mg IV Q6H PRN PRN Reason: BLOOD PRESSURE Mometasone Furoate/Formoterol Fumar (Dulera 200/5 Mdi*) 2 puff INH BID [facility] Last Admin: 07/26/17 08:29 Dose: 2 puff Morphine Sulfate (Morphine Oral Concentrate*) 5 mg SL Q6H PRN PRN Reason: PAIN Last Admin: 07/26/17 12:34 Dose: 5 mg Mupirocin (Bactroban 2 % Oint*) 1 applic TOPICAL DAILY [facility] Last Admin: 07/26/17 07:42 Dose: Not Given Omeprazole (Prilosec Cap*) 20 mg PO DAILY@0600 [facility] Last Admin: 07/26/17 05:41 Dose: 20 mg Pharmacy Consult (Vancomycin Per Pharmacy*) 1 note FOLLOW UP . PRN PRN Reason: PER PROTOCOL Pharmacy Profile Note (Vancomycin Trough Check) 1 note FOLLOW UP ONCE ONE Stop: 07/27/17 12:31 Prednisone (Deltasone Tab*) 60 mg PO DAILY [facility] Last Admin: 07/26/17 07:42 Dose: 60 mg Sertraline HCl (Zoloft*) 150 mg PO DAILY [facility] Last Admin: 07/26/17 07:41 Dose: 150 mg Tiotropium [place] (Spiriva Cap.Inh*) 1 cap INH DAILY [facility] Last Admin: 07/26/17 08:29 Dose: 1 cap Warfarin Sodium (Coumadin Tab(*)) 4 mg PO DAILY@1700 [facility] PRN Reason: Protocol Last Admin: 07/26/17 16:43 Dose: 4 mg Vital Signs - 8 hr 07/26/17 07/26/17 07/26/17 11:23 11:49 11:55 Temperature 98.3 F Pulse Rate 82 132 Respiratory 16 22 Rate Blood Pressure 103/50 (mmHg) O2 Sat by Pulse 88 90 90 Oximetry 07/26/17 07/26/17 07/26/17 12:09 12:34 12:53 Temperature Pulse Rate 90 158 Respiratory 14 22 Rate Blood Pressure (mmHg) O2 Sat by Pulse 2 Oximetry 07/26/17 07/26/17 07/26/17 13:23 14:12 14:30 Temperature Pulse Rate 154 122 Respiratory 18 20 20 Rate Blood Pressure 97/69 108/72 (mmHg) O2 Sat by Pulse 94 Oximetry 07/26/17 15:50 Temperature 98.8 F Pulse Rate 73 Respiratory 28 Rate Blood Pressure 97/64 (mmHg) O2 Sat by Pulse 98 Oximetry Oxygen Devices in Use Now: Simple Face Mask Appearance: ill appearing, slow to response but able to communicate, NAD Eyes: No Scleral Icterus Ears/Nose/Mouth/Throat: - - +thrush Neck: NL Appearance and Movements; NL JVP, Trachea Midline Respiratory: - - decreased throughout, faint end expiratory wheeze Cardiovascular: - - rapid, IRIR Abdominal: NL Sounds; No Tenderness; No Distention, No Hepatosplenomegaly, - - multiple healing abdominal scars Extremities: No Edema Neurological: Alert and Oriented x 3 Result Diagrams: 07/26/17 06:18 07/26/17 06:18 Microbiology and Other Data: Microbiology 07/20/17 11:40 Gram Stain - Final Sputum Assess/Plan/Problems-Billing Assessment: 76 yo M h/o COPD with chronic resp failure (2L o2 and home bipap), dCHF, afib, non healing abdominal wounds, admitted beginning of june for non healing wounds with superinfection, discharged then returned after respiratory failure with bystander CPR at home (no shocks, no meds) with stay notable for intubation and treatment of PNA x 10 days with broad spectrum abx, treatment of CHF with aggressive diuresis, thoracentesis returning now with sudden onset increased SOB and coughing for 12 hours prior to presentation with CXR concerning for PNA with stay c/b afib RVR and worsening leukocytsosis not temporally related to steroid administration - Patient Problems (1) Atrial fibrillation Comment: Telemetry discontinued at my requests - see subjective from 07/26 note detailing conversation with patient c/w metoprolol 100mg BID AC with coumadin. Coumadin reduced to 4mg daily due to the sharp increase in INR INR tomorrow (2) Acute and chronic respiratory failure with hypoxia Comment: he is on his home baseline O2 requirement of 2-3L exam consistent with severe bronchospasm and copd exacerbation despite being on steroids for most of the past month. 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 Cabrera. However pt and would still like to pursue some limited therapies which include IV abx. We did discuss that we could readdress hospice if he continues to worsen on abx. c/w morphine PO. Titrate up as necessary. This is patient's and 's request bacterial PNA less likely but with appearance of CXR and tenuous respiratory status has received 10 days levaquin WBC now greatly increased unlikely related to steroids given late increase in WBC while steroids decreased. Added vancomycin. Consider cefepime (3) COPD (chronic obstructive pulmonary disease) Comment: nebs and steroids for acute exacerbation PO steroid starting 07/25 (4) Supratherapeutic INR Comment: resolved (5) Esophageal dysfunction Comment: only mild on esophagram swallow eval was okay no recurrent pain on swallowing since 07/19/16 now with thrush. Esophageal pain may be related to esophageal candidiasis. Started fluconazole 07/26 (6) DVT prophylaxis Comment: Coumadin
[2017-07-26] MEDS: Fluconazole 100 MG TAB* TAB PO SCH (20:29)
[2017-07-27] MEDS: Vancomycin(*) 1,000 MG in NS 0.9% 250 ML* 250 ML IVPB SCH ×2 (01:41→14:15)
[2017-07-27] MEDS: Omeprazole CAP* 20 MG PO SCH (05:06)
[2017-07-27 06:55] LABS: Hematocrit 43 % (42-52); Hemoglobin 13.6 g/dl (14.0-18.0); Mean Corpuscular HGB Conc 32 g/dl (31-36); Mean Corpuscular Hemoglobin 28 pg (27-31); Mean Corpuscular Volume 88 fL (80-94); Mean Platelet Volume 9 um3 (7.4-10.4); Platelet Count 256 10^3/ul (150-450); Red Blood Count 4.85 10^6/ul (4.0-5.4); Red Cell Distribution Width 16 % (10.5-15); White Blood Count 22.1 10^3/ul (3.5-10.8)
[2017-07-27 07:08] LABS: INR 1.67 (0.77-1.02)
[2017-07-27 07:08] LABS: EGFR Non-African American 94.5 (>60)
[2017-07-27 08:07] LABS: ABS Basophils 0 10^3/ul (0-0.2); ABS Eosinophils 0 10^3/ul (0-0.6); ABS Lymphocytes 0.3 10^3/ul (1.0-4.8); ABS Monocytes 2.1 10^3/ul (0-0.8); ABS Neutrophils 19.7 10^3/ul (1.5-7.7); ABS Nucleated RBC 0 10^3/ul; Eosinophil % 0.1 % (0-6); Lymphocyte % 1.3 % (25-47); Nucleated Red Blood Cells % 0
[2017-07-27] MEDS: Mometasone/Formoter 200/5 MDI INH SCH ×2 (08:17→20:18)
[2017-07-27] MEDS: Tiotropium CAP.INH* CAP.INH/18 MCG (USE ORDER SET !) INH SCH (08:18)
[2017-07-27] MEDS: Levofloxacin 500 MG IVPREMIX(* 500 MG/100 ML BAG IVPB SCH (09:00)
[2017-07-27] MEDS: acetaZOLAMIDE TAB* 250 MG PO SCH ×2 (09:02→21:20)
[2017-07-27] MEDS: Diltiazem CD CAP* 240 MG PO SCH (09:03)
[2017-07-27] MEDS: Sertraline* 100 MG TAB PO SCH (09:03)
[2017-07-27] MEDS: Aspirin EC Low Dose* 81 MG TAB.EC PO SCH (09:03)
[2017-07-27] MEDS: Docusate CAP* 100 MG PO SCH ×2 (09:03→21:20)
[2017-07-27] MEDS: Metoprolol Tartrate TAB* 100 MG TAB PO SCH ×2 (09:04→21:20)
[2017-07-27] MEDS: Fluconazole 100 MG TAB* TAB PO SCH (09:04)
[2017-07-27] MEDS: predniSONE TAB* 20 MG PO SCH (09:04)
[2017-07-27] MEDS: Mupirocin 2% OINT* TUBE TOPICAL SCH (10:30)
[2017-07-27] MEDS ORDERED: Vancomycin Trough Check NOTE FOLLOW UP ONE (12:30)
[2017-07-27] MEDS ORDERED: predniSONE TAB* 50 MG PO SCH (14:07)
--- NOTE | 2017-07-27 14:20 | PN ---
Subjective Date of Service: 07/27/17 Interval History: No subj change. He denies pain. Occ cough. Appetite OK. Family History: Unchanged from Admission Social History: Unchanged from Admission Past Medical History: Unchanged from Admission Objective Active Medications: Acetaminophen (Tylenol Tab*) 650 mg PO Q4H PRN PRN Reason: FEVER/PAIN Acetazolamide (Diamox Tab*) 250 mg PO BID [facility] Last Admin: 07/27/17 09:02 Dose: 250 mg Al Hydrox/Mg Hydrox/Simethicone (Maalox Plus*) 30 ml PO Q2H PRN PRN Reason: HEARTBURN Last Admin: 07/19/17 09:18 Dose: 30 ml Albuterol (Ventolin Hfa Inhaler*) 2 puff INH Q4H PRN PRN Reason: SOB/WHEEZING Albuterol/Ipratropium (Duoneb (Albuterol 2.5 Mg/Ipratropium 0.5 Mg)) 1 neb INH Q4H PRN PRN Reason: SOB/WHEEZING Last Admin: 07/26/17 12:07 Dose: 1 neb Aspirin (Aspirin Ec Low Dose*) 81 mg PO DAILY [facility] Last Admin: 07/27/17 09:03 Dose: 81 mg Device (Tiotropium Inhaler Device*) 1 each .SEE ORDER .USE w/ SPIRIVA CAPS [facility] Diltiazem HCl (Cardizem Cd Cap*) 240 mg PO QAM [facility] Last Admin: 07/27/17 09:03 Dose: 240 mg Docusate Sodium (Colace Cap*) 100 mg PO BID [facility] Last Admin: 07/27/17 09:03 Dose: 100 mg Fluconazole (Diflucan 100 Mg Tab*) 100 mg PO DAILY [facility] Last Admin: 07/27/17 09:04 Dose: 100 mg Guaifenesin/Dextromethorphan (Robitussin Dm*) 5 ml PO Q4H PRN PRN Reason: COUGH Last Admin: 07/19/17 09:18 Dose: 5 ml Vancomycin HCl 1,000 mg/ (Sodium Chloride) 250 mls @ 166.667 mls/hr IVPB Q12H [facility] Last Admin: 07/27/17 01:41 Dose: 166.667 mls/hr Metoprolol Tartrate (Lopressor Tab*) 100 mg PO BID [facility] Last Admin: 07/27/17 09:04 Dose: 100 mg Metoprolol Tartrate (Lopressor Iv*) 5 mg IV Q6H PRN PRN Reason: BLOOD PRESSURE Mometasone Furoate/Formoterol Fumar (Dulera 200/5 Mdi*) 2 puff INH BID [facility] Last Admin: 07/27/17 08:17 Dose: 2 puff Morphine Sulfate (Morphine Oral Concentrate*) 5 mg SL Q6H PRN PRN Reason: PAIN Last Admin: 07/26/17 12:34 Dose: 5 mg Mupirocin (Bactroban 2 % Oint*) 1 applic TOPICAL DAILY [facility] Last Admin: 07/26/17 07:42 Dose: Not Given Omeprazole (Prilosec Cap*) 20 mg PO DAILY@0600 [facility] Last Admin: 07/27/17 05:06 Dose: 20 mg Pharmacy Consult (Vancomycin Per Pharmacy*) 1 note FOLLOW UP . PRN PRN Reason: PER PROTOCOL Pharmacy Profile Note (Vancomycin Trough Check) 1 note FOLLOW UP ONCE ONE Stop: 07/30/17 12:31 Prednisone (Deltasone Tab*) 50 mg PO DAILY [facility] Sertraline HCl (Zoloft*) 150 mg PO DAILY [facility] Last Admin: 07/27/17 09:03 Dose: 150 mg Tiotropium [place] (Spiriva Cap.Inh*) 1 cap INH DAILY [facility] Last Admin: 07/27/17 08:18 Dose: 1 cap Warfarin Sodium (Coumadin Tab(*)) 4 mg PO DAILY@1700 [facility] PRN Reason: Protocol Last Admin: 07/26/17 16:43 Dose: 4 mg Vital Signs - 8 hr 07/27/17 07:40 Temperature 97.4 F Pulse Rate 125 Respiratory 18 Rate Blood Pressure 105/51 (mmHg) O2 Sat by Pulse 97 Oximetry Oxygen Devices in Use Now: Nasal Cannula Appearance: Alert, partly up in bed. In fair spirits. Looks weak and sl tachypneic. Eyes: No Scleral Icterus Respiratory: Symmetrical Chest Expansion and Respiratory Effort, Clear to Percussion, - - markedly diminished BS BL Cardiovascular: NL Sounds; No Murmurs; No JVD, RRR, No Edema, - Extremities: No Edema, No Clubbing, Cyanosis, - Skin: No Rash or Ulcers, No Nodules or Sclerosis, - Neurological: Alert and Oriented x 3, NL Sensation Result Diagrams: 07/27/17 06:23 07/27/17 06:24 Microbiology and Other Data: Microbiology 07/20/17 11:40 Gram Stain - Final Sputum Assess/Plan/Problems-Billing Assessment: 76 yo M h/o COPD with chronic resp failure (2L o2 and home bipap), dCHF, afib, non healing abdominal wounds, admitted beginning of june for non healing wounds with superinfection, discharged then returned after respiratory failure with bystander CPR at home (no shocks, no meds) with stay notable for intubation and treatment of PNA x 10 days with broad spectrum abx, treatment of CHF with aggressive diuresis, thoracentesis returning now with sudden onset increased SOB and coughing for 12 hours prior to presentation with CXR concerning for PNA with stay c/b afib RVR and worsening leukocytsosis not temporally related to steroid administration - Patient Problems (1) COPD (chronic obstructive pulmonary disease) Current Visit: Yes Status: Acute Priority: Medium Code(s): J44.9 - CHRONIC OBSTRUCTIVE PULMONARY DISEASE, UNSPECIFIED SNOMED Code(s): 39577983 Comment: No clear evidence of infection but difficult to exclude it. 1 week course vancomycin planned. Completed 10 days of levofloxacin, will stop. I spoke with his about his overall treatment plan and antibiotics in particular and she agreed to this. Taper prednisone. (2) Atrial fibrillation Current Visit: Yes Status: Acute Priority: Medium Code(s): I48.91 - UNSPECIFIED ATRIAL FIBRILLATION SNOMED Code(s): 33722531 Comment: Telemetry discontinued at my requests - see subjective from 07/26 note detailing conversation with patient c/w metoprolol 100mg BID AC with coumadin. Coumadin reduced to 4mg daily due to the sharp increase in INR I will also talk to about possibly stopping AC. INR tomorrow (3) Chronic abdominal wound infection Current Visit: No Status: Acute Code(s): S31.109A - UNSP OPN WND ABD WALL, UNSP Q W/O PENET PERIT CAV, INIT; L08.9 - LOCAL INFECTION OF THE SKIN AND SUBCUTANEOUS TISSUE, UNSP SNOMED Code(s): 37986057 Comment: with superimposed infection s/p debridement at admission 06/22 5 different organisms were growing and was discharged on flagyl, bactrim. Not likely to be a major problem for him at this point. (4) Esophageal dysfunction Current Visit: Yes Status: Acute Code(s): K22.4 - DYSKINESIA OF ESOPHAGUS SNOMED Code(s): 403701599 Comment: only mild on esophagram swallow eval was okay no recurrent pain on swallowing since 07/19/16 now with thrush. Esophageal pain may be related to esophageal candidiasis. Started fluconazole 07/26, plan 14-21 days tx.
[2017-07-27] MEDS: Morphine ORAL CONCENTRATE* 5 MG/0.25 ML ORAL.SYRIN SL PRN ×2 (14:23→22:22)
[2017-07-27] MEDS: Warfarin TAB(*) 4 MG PO SCH (19:35)
[2017-07-28] MEDS: Vancomycin(*) 1,000 MG in NS 0.9% 250 ML* 250 ML IVPB SCH ×2 (02:29→14:14)
[2017-07-28] MEDS: Omeprazole CAP* 20 MG PO SCH (06:10)
[2017-07-28] MEDS: Tiotropium CAP.INH* CAP.INH/18 MCG (USE ORDER SET !) INH SCH (07:58)
[2017-07-28] MEDS: Mometasone/Formoter 200/5 MDI INH SCH (07:59)
[2017-07-28] MEDS: Aspirin EC Low Dose* 81 MG TAB.EC PO SCH (10:34)
[2017-07-28] MEDS: acetaZOLAMIDE TAB* 250 MG PO SCH (10:34)
[2017-07-28] MEDS: Sertraline* 100 MG TAB PO SCH (10:34)
[2017-07-28] MEDS: Fluconazole 100 MG TAB* TAB PO SCH (10:34)
[2017-07-28] MEDS: Diltiazem CD CAP* 240 MG PO SCH (10:34)
[2017-07-28] MEDS: Metoprolol Tartrate TAB* 100 MG TAB PO SCH (10:34)
[2017-07-28] MEDS: Docusate CAP* 100 MG PO SCH (10:34)
[2017-07-28] MEDS: Mupirocin 2% OINT* TUBE TOPICAL SCH (10:35)
[2017-07-28 11:58] VITALS: BP 91/37
[2017-07-28] MEDS ORDERED: Atropine 1% (ORAL/SL)* 15 ML BTL SL PRN (12:39)
--- NOTE | 2017-07-28 12:51 | PN ---
Subjective Date of Service: 07/28/17 Interval History: Patient denies pain. He seemed reluctant to describe his breathing but agreed with me when I suggested it was "so-so." His feels he is weaker and less responsive today although he did answer her questions appropriately. He ate a fairly good breakfast. Family History: Unchanged from Admission Social History: Unchanged from Admission Past Medical History: Unchanged from Admission Objective Active Medications: Acetazolamide (Diamox Tab*) 250 mg PO BID [facility] Last Admin: 07/28/17 10:34 Dose: 250 mg Albuterol (Ventolin Hfa Inhaler*) 2 puff INH Q4H PRN PRN Reason: SOB/WHEEZING Albuterol/Ipratropium (Duoneb (Albuterol 2.5 Mg/Ipratropium 0.5 Mg)) 1 neb INH Q4H PRN PRN Reason: SOB/WHEEZING Last Admin: 07/26/17 12:07 Dose: 1 neb Atropine Sulfate (Atropine 1% (Oral/Sl)*) 2 drop SL Q2H PRN PRN Reason: DISCOMFORT Device (Tiotropium Inhaler Device*) 1 each .SEE ORDER .USE w/ SPIRIVA CAPS [facility] Diltiazem HCl (Cardizem Cd Cap*) 240 mg PO QAM [facility] Last Admin: 07/28/17 10:34 Dose: 240 mg Docusate Sodium (Colace Cap*) 100 mg PO BID [facility] Last Admin: 07/28/17 10:34 Dose: 100 mg Guaifenesin/Dextromethorphan (Robitussin Dm*) 5 ml PO Q4H PRN PRN Reason: COUGH Last Admin: 07/19/17 09:18 Dose: 5 ml Vancomycin HCl 1,000 mg/ (Sodium Chloride) 250 mls @ 166.667 mls/hr IVPB Q12H [facility] Last Admin: 07/28/17 02:29 Dose: 166.667 mls/hr Metoprolol Tartrate (Lopressor Tab*) 100 mg PO BID [facility] Last Admin: 07/28/17 10:34 Dose: 100 mg Mometasone Furoate/Formoterol Fumar (Dulera 200/5 Mdi*) 2 puff INH BID [facility] Last Admin: 07/28/17 07:59 Dose: 2 puff Morphine Sulfate (Morphine Oral Concentrate*) 5 mg SL Q30M PRN PRN Reason: PAIN Mupirocin (Bactroban 2 % Oint*) 1 applic TOPICAL DAILY [facility] Last Admin: 07/28/17 10:35 Dose: Not Given Omeprazole (Prilosec Cap*) 20 mg PO DAILY@0600 [facility] Last Admin: 07/28/17 06:10 Dose: 20 mg Pharmacy Consult (Vancomycin Per Pharmacy*) 1 note FOLLOW UP . PRN PRN Reason: PER PROTOCOL Pharmacy Profile Note (Vancomycin Trough Check) 1 note FOLLOW UP ONCE ONE Stop: 07/30/17 12:31 Prednisone (Deltasone Tab*) 40 mg PO DAILY [facility] Sertraline HCl (Zoloft*) 150 mg PO DAILY [facility] Last Admin: 07/28/17 10:34 Dose: 150 mg Tiotropium [place] (Spiriva Cap.Inh*) 1 cap INH DAILY [facility] Last Admin: 07/28/17 07:58 Dose: 1 cap Vital Signs - 8 hr 07/28/17 07/28/17 07/28/17 07:45 08:04 11:26 Temperature 97.1 F Pulse Rate 82 99 109 Respiratory 15 20 16 Rate Blood Pressure 99/55 91/37 (mmHg) O2 Sat by Pulse 92 92 87 Oximetry Oxygen Devices in Use Now: Nasal Cannula Appearance: Partly up in bed. Neutral affect, looks weak/passive, otherwise comfortable. Eyes: No Scleral Icterus Neck: NL Appearance and Movements; NL JVP, No Thyroid Enlargement, Masses Respiratory: Symmetrical Chest Expansion and Respiratory Effort, Clear to Percussion - diminished BS BL Cardiovascular: NL Sounds; No Murmurs; No JVD, RRR, No Edema, - Extremities: No Edema, No Clubbing, Cyanosis, - Skin: No Nodules or Sclerosis, - - shallow ulcer L face seems to be from O2 tubing Neurological: NL Sensation, - - Answers weakly but appropriately. Result Diagrams: 07/27/17 06:23 07/27/17 06:24 Microbiology and Other Data: Microbiology 07/20/17 11:40 Gram Stain - Final Sputum Assess/Plan/Problems-Billing Assessment: 76 yo M h/o COPD with chronic resp failure (2L o2 and home bipap), dCHF, afib, non healing abdominal wounds, admitted beginning of june for non healing wounds with superinfection, discharged then returned after respiratory failure with bystander CPR at home (no shocks, no meds) with stay notable for intubation and treatment of PNA x 10 days with broad spectrum abx, treatment of CHF with aggressive diuresis, thoracentesis returning now with sudden onset increased SOB and coughing for 12 hours prior to presentation with CXR concerning for PNA with stay c/b afib RVR and worsening leukocytsosis not temporally related to steroid administration - Patient Problems (1) COPD (chronic obstructive pulmonary disease) Current Visit: Yes Status: Acute Priority: Medium Code(s): J44.9 - CHRONIC OBSTRUCTIVE PULMONARY DISEASE, UNSPECIFIED SNOMED Code(s): 07597376 Comment: No clear evidence of infection but difficult to exclude it. 1 week course vancomycin planned. Completed 10 days of levofloxacin, will stop. I spoke with his about his overall treatment plan and antibiotics in particular and she agreed to this. Taper prednisone. I spoke with again on 07/28. She is interested only in comfort except she requests the vancomycin be continued. She agrees to stop warfarin and any other meds that don't contribute to his comfort. (2) Atrial fibrillation Current Visit: Yes Status: Acute Priority: Medium Code(s): I48.91 - UNSPECIFIED ATRIAL FIBRILLATION SNOMED Code(s): 24971019 Comment: Telemetry discontinued at my requests - see subjective from 07/26 note detailing conversation with patient c/w metoprolol 100mg BID AC with coumadin. Coumadin reduced to 4mg daily due to the sharp increase in INR I will also talk to about possibly stopping AC. INR tomorrow (3) Chronic abdominal wound infection Current Visit: No Status: Acute Code(s): S31.109A - UNSP OPN WND ABD WALL, UNSP Q W/O PENET PERIT CAV, INIT; L08.9 - LOCAL INFECTION OF THE SKIN AND SUBCUTANEOUS TISSUE, UNSP SNOMED Code(s): 52387921 Comment: with superimposed infection s/p debridement at admission 06/22 5 different organisms were growing and was discharged on flagyl, bactrim. Not likely to be a major problem for him at this point. (4) Esophageal dysfunction Current Visit: Yes Status: Acute Code(s): K22.4 - DYSKINESIA OF ESOPHAGUS SNOMED Code(s): 601803461 Comment: only mild on esophagram swallow eval was okay no recurrent pain on swallowing since 07/19/16 Stop fluconazole, doubt will benefit him at this point.
[2017-07-28] MEDS: Morphine ORAL CONCENTRATE* 5 MG/0.25 ML ORAL.SYRIN SL PRN ×4 (14:36→20:40)
[2017-07-28] MEDS ORDERED: LORazepam TAB(*) 0.5 MG SL PRN (14:51)
[2017-07-29] MEDS: Morphine ORAL CONCENTRATE* 5 MG/0.25 ML ORAL.SYRIN SL PRN ×2 (00:42→02:21)
--- NOTE | 2017-07-29 06:50 | PN ---
Hospitalist Progress Note Date of Service: 07/29/17 called by RN; she had gone in the room to administer morphine and found Mr. Pennington to have stopped breathing. His Evelia was at the bedside. I came to assess him; time of pronounced at 6:08am. certificate completed. RN to call organ donation.
[2017-07-29] MEDS ORDERED: predniSONE TAB* 20 MG PO SCH (09:00)
[2017-07-30] MEDS ORDERED: Vancomycin Trough Check NOTE FOLLOW UP ONE (12:30)
== END 2017-07-29 06:08 | disposition expired | DRG 189 ==
LOC: ED 06:17 → ICU 08:24 → MED 07-17 17:09 → ICU 07-22 22:20 → MED 07-23 19:30
PROVIDERS: ADMIT Internal Medicine; ATTEND Internal Medicine
PROC: 5A09357 Assistance with Respiratory Ventilation, Less than 24 Consecutive Hours, Continuous Positive Airway Pressure (ICD-10-PCS; principal; 2017-07-17)
PROC: BD11ZZZ Fluoroscopy of Esophagus (ICD-10-PCS; 2017-07-20)
DX: J96.21 Acute and chronic respiratory failure with hypoxia (principal); E87.2 Acidosis; I27.20 Pulmonary hypertension, unspecified; J90 Pleural effusion, not elsewhere classified; I48.2 Chronic atrial fibrillation; I50.42 Chronic combined systolic (congestive) and diastolic (congestive) heart failure; B37.9 Candidiasis, unspecified; J44.1 Chronic obstructive pulmonary disease with (acute) exacerbation; T81.4XXA Infection following a procedure, initial encounter; B99.9 Unspecified infectious disease; I10 Essential (primary) hypertension; M19.90 Unspecified osteoarthritis, unspecified site; S51.812A Laceration without foreign body of left forearm, initial encounter; W19.XXXA Unspecified fall, initial encounter; I08.0 Rheumatic disorders of both mitral and aortic valves; F32.9 Major depressive disorder, single episode, unspecified; R79.1 Abnormal coagulation profile; J96.22 Acute and chronic respiratory failure with hypercapnia; K22.4 Dyskinesia of esophagus; J98.01 Acute bronchospasm; Y73.8 Miscellaneous gastroenterology and urology devices associated with adverse incidents, not elsewhere classified; Y92.239 Unspecified place in hospital as the place of occurrence of the external cause; N40.0 Benign prostatic hyperplasia without lower urinary tract symptoms; Z86.14 Personal history of Methicillin resistant Staphylococcus aureus infection; Z87.891 Personal history of nicotine dependence; Y92.9 Unspecified place or not applicable; Z82.3 Family history of stroke; Z83.3 Family history of diabetes mellitus; Z86.718 Personal history of other venous thrombosis and embolism; Z99.81 Dependence on supplemental oxygen; Z86.74 Personal history of sudden cardiac arrest
CPT/HCPCS: 36415; 36600; 71045; 71046; 74220; 80048; 80053; 80202; 81003; 81015; 82803; 83605; 83735; 83880; 84145; 84484; 85025; 85610; 85730; 86140; 87040; 87070; 87086; 87106; 87205; 93005; 94640; 94660; 94760; 99284; A9270-GY; J0692; J1160; J1940; J1956; J2270; J2920; J2930; J3370; J3475; J3490; J7512